=== PATIENT | male | born 1965 | race African-American/Black ===

== ENCOUNTER 2021-09-26 18:52 | Emergency (ER) | payer MEDICAID, OTHER ==
[~2021-09-26] VITALS: Ht 167.6 cm; Wt 90.7 kg
[2021-09-26] MEDS ORDERED: KETOROLAC TROMETH 30 MG/ML 1ML VIAL IM ONE (20:15)
[2021-09-26] MEDS ORDERED: VANCOMYCIN 1GM/250ML 250 ML IV ONE (21:30)
[2021-09-26] MEDS ORDERED: PIPERACILLIN-TAZO 4.5GM 100 ML IV ONE (21:30)
[2021-09-26 23:49] LABS: Basophils # (auto) 0.1 10 ^3/uL (0-0.2); Basophils % (auto) 1.5 % (0.0-2.0); Eosinophils # (auto) 0.1 10 ^3/uL (0-0.8); Eosinophils % (auto) 0.9 % (0.0-7.0); Hematocrit 40.3 % (41.0-53.0); Hemoglobin 13.5 g/dL (13.5-17.5); Lymphocytes # (auto) 1.6 10 ^3/uL (0.4-5.4); Lymphocytes % (auto) 28.6 % (10.0-50.0); Mean Corpuscular Hemoglobin 31.3 pg (28.0-32.0); Mean Corpuscular Hgb Conc. 33.5 g/dL (32.0-36.0); Mean Corpuscular Volume 93.5 fL (80.0-100.0); Monocytes # (auto) 0.5 10 ^3/uL (0-1.3); Monocytes % (auto) 9.8 % (0.0-12.0); Neutrophils # (auto) 3.3 10 ^3/uL (1.6-8.6); Neutrophils % (auto) 59.2 % (37.0-80.0); Red Blood Cells 4.31 10^6/uL (4.5-5.90); Red Cell Distribution Width 13.3 % (11.8-14.3); White Blood Cell 5.6 10^3/uL (4.4-10.8)
[2021-09-27 00:06] LABS: Albumin 1.8 g/dL (3.4-5.0); Potassium 3.9 mmol/L (3.5-5.1)
[2021-09-27 00:17] LABS: BUN/Creatinine Ratio 10.2; Bilirubin, Total 0.2 mg/dL (0.2-1.0); Total Protein 6.5 g/dL (6.4-8.2)
[2021-09-27] MEDS ORDERED: CEFD300C2 PO (06:25)
[2021-09-27 08:48] VITALS: BP 148/92
== END 2021-09-27 08:50 | disposition home or self-care (01) ==
LOC: ER 18:52 → EDBD 18:52 → ER 09-27 08:50
DX: E11.621 Type 2 diabetes mellitus with foot ulcer (principal); L97.519 Non-pressure chronic ulcer of other part of right foot with unspecified severity; E11.52 Type 2 diabetes mellitus with diabetic peripheral angiopathy with gangrene; I96 Gangrene, not elsewhere classified; R94.4 Abnormal results of kidney function studies
CPT/HCPCS: 36415; 73610; 73630; 80053; 82550; 83605; 85025; 85652; 86141; 87040; 96365; 96366; 96367; 96372; 99284; J1885; J2543; J3370

== ENCOUNTER 2021-09-27 19:09 | Inpatient (IN) | payer MEDICAID ==
[~2021-09-27] VITALS: Ht 167.6 cm; Wt 87.6 kg
[~2021-09-27 19:09] MED LIST: CEFD300C2 PO
[2021-09-27] MEDS ORDERED: VANCOMYCIN 1GM/250ML 250 ML IV ONE (19:45)
[2021-09-27] MEDS ORDERED: PIPERACILLIN-TAZOB 3.375GM 100 ML IV ONE (19:45)
[2021-09-27] MEDS ORDERED: ONDANSETRON HCL 4 MG/2 ML VIAL IV ONE (20:00)
[2021-09-27] MEDS ORDERED: LABETALOL HCL 5 MG/ML 4ML SYRINGE IV ONE (20:00)
[2021-09-27] MEDS ORDERED: HYDROmorphone HCL 2 MG/ML VL IV ONE (20:00)
[2021-09-27 21:11] LABS: Basophils # (auto) 0.1 10 ^3/uL (0-0.2); Eosinophils # (auto) 0.1 10 ^3/uL (0-0.8); Hemoglobin 12.2 g/dL (13.5-17.5); Lymphocytes # (auto) 1.8 10 ^3/uL (0.4-5.4); Mean Corpuscular Hemoglobin 30.9 pg (28.0-32.0); Mean Corpuscular Hgb Conc. 33.4 g/dL (32.0-36.0); Mean Corpuscular Volume 92.3 fL (80.0-100.0); Neutrophils % (auto) 62.5 % (37.0-80.0)
[2021-09-27 21:18] LABS: Basophils % (auto) 0.9 % (0.0-2.0); Hematocrit 36.5 % (41.0-53.0); INR 0.99 (0.9-1.15); Lymphocytes % (auto) 27.1 % (10.0-50.0); Monocytes # (auto) 0.6 10 ^3/uL (0-1.3); Monocytes % (auto) 8.5 % (0.0-12.0); Neutrophils # (auto) 4.2 10 ^3/uL (1.6-8.6); Nucleated Red Blood Cells % 0.2 %; Partial Thromboplastin Time 27.9 sec (23.6-33.0); Red Blood Cells 3.95 10^6/uL (4.5-5.90); Red Cell Distribution Width 13.6 % (11.8-14.3); White Blood Cell 6.8 10^3/uL (4.4-10.8)
[2021-09-28] MEDS ORDERED: DEXTROSE (50%) 50ML SYRG IV PRN (00:15)
[2021-09-28] MEDS ORDERED: ONDANSETRON HCL 4 MG/2 ML VIAL IV PRN (00:15)
[2021-09-28] MEDS ORDERED: SODIUM CHLORIDE 0.9% 1,000 ML IV SCH (00:15)
[2021-09-28] MEDS ORDERED: HYDROcodone-ACET 5/325MG TAB PO PRN (00:15)
[2021-09-28] MEDS ORDERED: ACETAMINOPHEN 325 MG TAB PO PRN (00:15)
[2021-09-28] MEDS ORDERED: DOCUSATE SOD 100 MG CAP PO PRN (00:15)
[2021-09-28] MEDS ORDERED: NITROGLYCERIN 0.4 MG SL TAB SL PRN (01:45)
[2021-09-28] MEDS ORDERED: MORPHINE SULFATE INJECTION 2 MG/ML SYRG IV PRN (01:45)
[2021-09-28] MEDS ORDERED: DexAMETHasone SOD PHOS 10MG/1ML VIAL INJ IV SCH (04:30)
[2021-09-28 04:59] LABS: Basophils # (auto) 0.1 10 ^3/uL (0-0.2); Basophils % (auto) 1.4 % (0.0-2.0); Eosinophils # (auto) 0.1 10 ^3/uL (0-0.8); Eosinophils % (auto) 1.3 % (0.0-7.0); Hematocrit 40.4 % (41.0-53.0); Hemoglobin 13.5 g/dL (13.5-17.5); Lymphocytes # (auto) 1.8 10 ^3/uL (0.4-5.4); Lymphocytes % (auto) 34.4 % (10.0-50.0); Mean Corpuscular Hemoglobin 31.1 pg (28.0-32.0); Mean Corpuscular Hgb Conc. 33.4 g/dL (32.0-36.0); Monocytes # (auto) 0.5 10 ^3/uL (0-1.3); Monocytes % (auto) 8.8 % (0.0-12.0); Neutrophils # (auto) 2.8 10 ^3/uL (1.6-8.6); Neutrophils % (auto) 54.1 % (37.0-80.0); Nucleated Red Blood Cells % 0.1 %; Red Blood Cells 4.35 10^6/uL (4.5-5.90); Red Cell Distribution Width 13.5 % (11.8-14.3); White Blood Cell 5.2 10^3/uL (4.4-10.8)
[2021-09-28 05:11] LABS: Albumin 1.5 g/dL (3.4-5.0); Calcium 7.2 mg/dL (8.5-10.1); Potassium 4.1 mmol/L (3.5-5.1)
[2021-09-28 05:17] LABS: BUN/Creatinine Ratio 9.9; Bilirubin, Total 0.1 mg/dL (0.2-1.0)
[2021-09-28] MEDS: ACCU-CHEK COMFORT CURVE STRIP VI SCH ×4 (07:50→22:16)
[2021-09-28] MEDS: InsuLIN REG 1unit/0.01ml Soln (100units/ml) SC SCH ×4 (07:50→22:00)
[2021-09-28] MEDS: LABETALOL HCL 5 MG/ML 4ML SYRINGE IV PRN (08:41)
[2021-09-28] MEDS: MORPHINE SULFATE 4 MG/ML SYR/VIAL IV PRN ×3 (08:46→22:24)
[2021-09-28] MEDS ORDERED: PIPERACILLIN-TAZOB 3.375GM 100 ML IV SCH (09:00)
[2021-09-28] MEDS ORDERED: BUDESONIDE (INHALATION) 180 MCG IH IN SCH (10:00)
[2021-09-28] MEDS: ZINC SULFATE 220mg CAP or TAB PO SCH (10:30)
[2021-09-28] MEDS: FAMOTIDINE (10MG/ML) 2ML VL IV SCH (10:30)
[2021-09-28] MEDS: CHOLECALCIFEROL (VITD3) 2,000 UNIT CAP/TAB PO SCH (10:31)
[2021-09-28] MEDS: HEPARIN SODIUM (PORCINE) 5000 UNITS/ML 1ML VIAL SC SCH ×2 (10:31→22:13)
[2021-09-28] MEDS: MULTIPLE VITAMIN TAB PO SCH (10:31)
[2021-09-28] MEDS: ASCORBIC ACID 500 MG TAB PO SCH ×2 (10:31→22:15)
[2021-09-28] MEDS: METOPROLOL TARTRATE 25 MG TAB PO SCH ×2 (10:31→22:15)
[2021-09-28] MEDS ORDERED: NIFEdipine ER 30 MG TAB PO ONE (10:45)
[2021-09-28 11:06] LABS: Urine Bacteria FEW /hpf (None Seen); Urine Blood 2+ /uL (Negative); Urine Specific Gravity 1.018 (1.001-1.035); Urine WBC 5 /hpf (0 - 3)
[2021-09-28 12:09] LABS: Protein, Urine 1433.8 mg/dL (0.0-11.9)
[2021-09-28 12:19] LABS: Alcohol, Urine < 3.0 mg/dL (0-10); Barbiturate Scree,Urine NEGATIVE (NEGATIVE); Benzodiazephine Screen, Urine NEGATIVE (NEGATIVE); Cannabinoid Screen, Urine POSITIVE (NEGATIVE); Cocaine Screen, Urine NEGATIVE (NEGATIVE); Opiate Scree,Urine NEGATIVE (NEGATIVE); Phencyclidine Screen, Urine NEGATIVE (NEGATIVE)
[2021-09-28 12:27] LABS: Amphetamine Screen, Urine NEGATIVE (NEGATIVE)
[2021-09-28] MEDS: CLINDAMYCIN 600MG IV 50 ML IV SCH ×2 (12:53→20:07)
[2021-09-28] MEDS: AZITHROMYCIN 500MG/ 250ML 250 ML IV SCH (12:53)
[2021-09-28] MEDS: CEFEPIME 1 GM in SODIUM CHL 0.9% 50 ML IV SCH (14:40)
[2021-09-28 20:20] VITALS: BP 153/93
[2021-09-28 22:00] VITALS: BP 153/93
[2021-09-29] MEDS: CLINDAMYCIN 600MG IV 50 ML IV SCH ×3 (03:58→20:23)
[2021-09-29 05:00] VITALS: BP 153/88
[2021-09-29 05:58] LABS: Basophils # (auto) 0 10 ^3/uL (0-0.2); Basophils % (auto) 0.7 % (0.0-2.0); Eosinophils # (auto) 0 10 ^3/uL (0-0.8); Eosinophils % (auto) 0.2 % (0.0-7.0); Hematocrit 36.8 % (41.0-53.0); Hemoglobin 12.1 g/dL (13.5-17.5); Lymphocytes # (auto) 1.5 10 ^3/uL (0.4-5.4); Lymphocytes % (auto) 26.3 % (10.0-50.0); Mean Corpuscular Hemoglobin 30.5 pg (28.0-32.0); Mean Corpuscular Hgb Conc. 32.9 g/dL (32.0-36.0); Mean Corpuscular Volume 92.7 fL (80.0-100.0); Monocytes # (auto) 0.6 10 ^3/uL (0-1.3); Monocytes % (auto) 9.5 % (0.0-12.0); Neutrophils # (auto) 3.7 10 ^3/uL (1.6-8.6); Neutrophils % (auto) 63.3 % (37.0-80.0); Red Blood Cells 3.97 10^6/uL (4.5-5.90); Red Cell Distribution Width 13.8 % (11.8-14.3); White Blood Cell 5.8 10^3/uL (4.4-10.8)
[2021-09-29 06:20] LABS: Potassium 4.1 mmol/L (3.5-5.1)
[2021-09-29 06:29] LABS: Albumin 1.6 g/dL (3.4-5.0); BUN/Creatinine Ratio 10.8; Bilirubin, Total 0.2 mg/dL (0.2-1.0); Calcium 7.4 mg/dL (8.5-10.1)
[2021-09-29] MEDS: ACCU-CHEK COMFORT CURVE STRIP VI SCH ×4 (06:44→21:48)
[2021-09-29] MEDS: InsuLIN REG 1unit/0.01ml Soln (100units/ml) SC SCH ×4 (06:44→22:00)
[2021-09-29] MEDS: ALBUTEROL SULF HFA 90MCG INH 200DOSE IN PRN ×2 (07:06→19:21)
[2021-09-29 09:00] VITALS: BP 160/95
[2021-09-29] MEDS: MORPHINE SULFATE 4 MG/ML SYR/VIAL IV PRN ×2 (09:10→16:19)
[2021-09-29] MEDS: FAMOTIDINE (10MG/ML) 2ML VL IV SCH (09:33)
[2021-09-29] MEDS: ZINC SULFATE 220mg CAP or TAB PO SCH (09:34)
[2021-09-29] MEDS: AZITHROMYCIN 500MG/ 250ML 250 ML IV SCH (09:34)
[2021-09-29] MEDS: CHOLECALCIFEROL (VITD3) 2,000 UNIT CAP/TAB PO SCH (09:35)
[2021-09-29] MEDS: MULTIPLE VITAMIN TAB PO SCH (09:35)
[2021-09-29] MEDS: ASCORBIC ACID 500 MG TAB PO SCH ×2 (09:35→21:47)
[2021-09-29] MEDS: HEPARIN SODIUM (PORCINE) 5000 UNITS/ML 1ML VIAL SC SCH ×2 (09:36→21:50)
[2021-09-29] MEDS: METOPROLOL TARTRATE 25 MG TAB PO SCH ×2 (09:37→21:47)
[2021-09-29] MEDS: NIFEdipine ER 30 MG TAB PO SCH (09:38)
[2021-09-29 17:00] VITALS: BP 153/92
[2021-09-29] MEDS: CEFEPIME 1 GM in SODIUM CHL 0.9% 50 ML IV SCH (18:54)
[2021-09-29] MEDS: SODIUM BICARBONATE 50ML VIAL 75 ML in SOD CHL 0.45% 1,000 ML IV SCH (18:54)
[2021-09-29] MEDS: ACETYLCYSTEINE ORAL for CIN 20%(200MG/ML) 4ML PO SCH ×2 (18:55→22:59)
[2021-09-29 22:00] VITALS: BP 154/79
[2021-09-30] MEDS: SODIUM BICARBONATE 50ML VIAL 75 ML in SOD CHL 0.45% 1,000 ML IV SCH ×3 (00:45→23:09)
[2021-09-30] MEDS: CLINDAMYCIN 600MG IV 50 ML IV SCH ×3 (04:27→20:32)
[2021-09-30 05:00] VITALS: BP 142/79
[2021-09-30] MEDS: ALBUTEROL SULF HFA 90MCG INH 200DOSE IN PRN (06:03)
[2021-09-30] MEDS: InsuLIN REG 1unit/0.01ml Soln (100units/ml) SC SCH ×4 (07:00→21:57)
[2021-09-30] MEDS: ACCU-CHEK COMFORT CURVE STRIP VI SCH ×4 (07:01→21:54)
[2021-09-30 08:02] LABS: BUN/Creatinine Ratio 9.9
[2021-09-30 09:00] VITALS: BP 160/102
[2021-09-30] MEDS: FAMOTIDINE (10MG/ML) 2ML VL IV SCH (09:46)
[2021-09-30] MEDS: AZITHROMYCIN 500MG/ 250ML 250 ML IV SCH (09:46)
[2021-09-30] MEDS: ZINC SULFATE 220mg CAP or TAB PO SCH (09:47)
[2021-09-30] MEDS: METOPROLOL TARTRATE 25 MG TAB PO SCH ×2 (09:47→21:55)
[2021-09-30] MEDS: MULTIPLE VITAMIN TAB PO SCH (09:48)
[2021-09-30] MEDS: ACETYLCYSTEINE ORAL for CIN 20%(200MG/ML) 4ML PO SCH (09:48)
[2021-09-30] MEDS: ASCORBIC ACID 500 MG TAB PO SCH ×2 (09:49→21:53)
[2021-09-30] MEDS: NIFEdipine ER 30 MG TAB PO SCH (09:49)
[2021-09-30] MEDS: CHOLECALCIFEROL (VITD3) 2,000 UNIT CAP/TAB PO SCH (09:49)
[2021-09-30] MEDS: MORPHINE SULFATE 4 MG/ML SYR/VIAL IV PRN ×2 (09:55→21:56)
[2021-09-30] MEDS: HEPARIN SODIUM (PORCINE) 5000 UNITS/ML 1ML VIAL SC SCH ×2 (11:48→21:53)
[2021-09-30] MEDS: LABETALOL HCL 5 MG/ML 4ML SYRINGE IV PRN ×2 (12:15→18:20)
[2021-09-30 12:24] LABS: INR 1.04 (0.9-1.15); Partial Thromboplastin Time 34.7 sec (23.6-33.0)
[2021-09-30 13:00] VITALS: BP 162/103
[2021-09-30] MEDS ORDERED: NIFEdipine ER 30 MG TAB PO ONE (14:45)
[2021-09-30] MEDS ORDERED: LABETALOL HCL 5 MG/ML 4ML SYRINGE IV PRN (14:45)
[2021-09-30] MEDS ORDERED: LIDOCAINE 2%HCL (LOCAL ANESTH.) INJ 20ML MDV ONE (15:07)
[2021-09-30] MEDS ORDERED: fentaNYL CITRATE 100 MCG/2 ML VL ONE (15:38)
[2021-09-30] MEDS ORDERED: MIDAZOLAM HCL 2MG/2ML 2ml VIAL (1mg/ml) ONE (15:38)
[2021-09-30] MEDS ORDERED: HEPARIN SODIUM (PORCINE) 5000 UNITS/ML 1ML VIAL ONE (15:57)
[2021-09-30 17:00] VITALS: BP 170/106
[2021-09-30] MEDS: CEFEPIME 1 GM in SODIUM CHL 0.9% 50 ML IV SCH (17:14)
[2021-09-30] MEDS: ACETYLCYSTEINE 10 %(100MG/ML) SOL 4ML PO SCH (21:54)
[2021-09-30 22:00] VITALS: BP 131/98
[2021-10-01] MEDS: CLINDAMYCIN 600MG IV 50 ML IV SCH ×3 (04:16→20:33)
[2021-10-01 05:00] VITALS: BP 140/86
[2021-10-01] MEDS: InsuLIN REG 1unit/0.01ml Soln (100units/ml) SC SCH ×4 (06:34→22:27)
[2021-10-01] MEDS: ACCU-CHEK COMFORT CURVE STRIP VI SCH ×4 (06:34→22:21)
[2021-10-01] MEDS: SODIUM BICARBONATE 50ML VIAL 75 ML in SOD CHL 0.45% 1,000 ML IV SCH ×2 (09:00→19:45)
[2021-10-01] MEDS: HEPARIN SODIUM (PORCINE) 5000 UNITS/ML 1ML VIAL SC SCH ×2 (10:00→22:26)
[2021-10-01 10:30] VITALS: BP 155/87
[2021-10-01] MEDS: AZITHROMYCIN 500MG/ 250ML 250 ML IV SCH (10:48)
[2021-10-01] MEDS: FAMOTIDINE (10MG/ML) 2ML VL IV SCH (10:48)
[2021-10-01] MEDS: ZINC SULFATE 220mg CAP or TAB PO SCH (10:48)
[2021-10-01] MEDS: MULTIPLE VITAMIN TAB PO SCH (10:49)
[2021-10-01] MEDS: ACETYLCYSTEINE 10 %(100MG/ML) SOL 4ML PO SCH (10:49)
[2021-10-01] MEDS: METOPROLOL TARTRATE 25 MG TAB PO SCH ×2 (10:49→22:21)
[2021-10-01] MEDS: ASCORBIC ACID 500 MG TAB PO SCH ×2 (10:50→22:21)
[2021-10-01] MEDS: NIFEdipine ER 30 MG TAB PO SCH (10:50)
[2021-10-01] MEDS: CHOLECALCIFEROL (VITD3) 2,000 UNIT CAP/TAB PO SCH (10:50)
[2021-10-01] MEDS: ALBUTEROL SULF HFA 90MCG INH 200DOSE IN PRN (11:11)
[2021-10-01 12:43] LABS: BUN/Creatinine Ratio 10.2; Calcium 7.4 mg/dL (8.5-10.1); Potassium 3.9 mmol/L (3.5-5.1)
[2021-10-01 14:17] VITALS: BP 181/100
[2021-10-01] MEDS: LABETALOL HCL 5 MG/ML 4ML SYRINGE IV PRN (14:36)
[2021-10-01] MEDS ORDERED: LIDOCAINE 2%HCL (LOCAL ANESTH.) INJ 20ML MDV ONE (14:42)
[2021-10-01] MEDS ORDERED: fentaNYL CITRATE 100 MCG/2 ML VL ONE (14:44)
[2021-10-01] MEDS ORDERED: MIDAZOLAM HCL 2MG/2ML 2ml VIAL (1mg/ml) ONE (14:44)
[2021-10-01] MEDS ORDERED: ANGIOMAX 250 MG VIAL IV ONE (14:44)
[2021-10-01] MEDS ORDERED: SODIUM CHL 0.9% 0 ML ONE (14:44)
[2021-10-01] MEDS ORDERED: IOHEXOL 350 MG/ML 100ML IJ ONE (15:30)
[2021-10-01] MEDS: CEFEPIME 1 GM in SODIUM CHL 0.9% 50 ML IV SCH (17:00)
[2021-10-01] MEDS: MORPHINE SULFATE 4 MG/ML SYR/VIAL IV PRN (17:01)
[2021-10-01 17:08] VITALS: BP 168/90
[2021-10-01] MEDS: FUROSEMIDE 100 MG/10ML VIAL IV SCH (18:09)
[2021-10-01] MEDS: amLODIPine BESYLATE 5 MG TAB PO SCH (18:09)
[2021-10-01 22:00] VITALS: BP 139/76
[2021-10-02 05:00] VITALS: BP 149/85
[2021-10-02] MEDS: CLINDAMYCIN 600MG IV 50 ML IV SCH ×2 (05:13→12:04)
[2021-10-02] MEDS: FUROSEMIDE 100 MG/10ML VIAL IV SCH ×2 (06:00→18:00)
[2021-10-02] MEDS: SODIUM BICARBONATE 50ML VIAL 75 ML in SOD CHL 0.45% 1,000 ML IV SCH ×2 (06:30→17:15)
[2021-10-02] MEDS: InsuLIN REG 1unit/0.01ml Soln (100units/ml) SC SCH ×3 (07:00→17:00)
[2021-10-02 07:09] LABS: Basophils # (auto) 0.1 10 ^3/uL (0-0.2); Basophils % (auto) 0.9 % (0.0-2.0); Eosinophils # (auto) 0.1 10 ^3/uL (0-0.8); Eosinophils % (auto) 0.8 % (0.0-7.0); Hematocrit 36.7 % (41.0-53.0); Hemoglobin 12.4 g/dL (13.5-17.5); Lymphocytes # (auto) 1.3 10 ^3/uL (0.4-5.4); Lymphocytes % (auto) 18.8 % (10.0-50.0); Mean Corpuscular Hemoglobin 30.9 pg (28.0-32.0); Mean Corpuscular Hgb Conc. 33.9 g/dL (32.0-36.0); Mean Corpuscular Volume 91.2 fL (80.0-100.0); Monocytes # (auto) 0.5 10 ^3/uL (0-1.3); Monocytes % (auto) 7.4 % (0.0-12.0); Neutrophils % (auto) 72.1 % (37.0-80.0); Nucleated Red Blood Cells % 0.1 %; Red Blood Cells 4.03 10^6/uL (4.5-5.90); Red Cell Distribution Width 13.4 % (11.8-14.3); White Blood Cell 6.9 10^3/uL (4.4-10.8)
[2021-10-02 07:30] LABS: Albumin 1.6 g/dL (3.4-5.0); Calcium 7.6 mg/dL (8.5-10.1); Potassium 3.5 mmol/L (3.5-5.1)
[2021-10-02 07:33] LABS: BUN/Creatinine Ratio 9.1; Bilirubin, Total 0.2 mg/dL (0.2-1.0); Total Protein 6.2 g/dL (6.4-8.2)
[2021-10-02 09:00] VITALS: BP 144/85
[2021-10-02] MEDS: ALBUTEROL SULF HFA 90MCG INH 200DOSE IN PRN (09:29)
[2021-10-02] MEDS: ACCU-CHEK COMFORT CURVE STRIP VI SCH ×3 (09:39→17:00)
[2021-10-02] MEDS: AZITHROMYCIN 500MG/ 250ML 250 ML IV SCH (10:00)
[2021-10-02] MEDS: ZINC SULFATE 220mg CAP or TAB PO SCH (11:17)
[2021-10-02] MEDS: FAMOTIDINE (10MG/ML) 2ML VL IV SCH (11:17)
[2021-10-02] MEDS: MULTIPLE VITAMIN TAB PO SCH (11:17)
[2021-10-02] MEDS: METOPROLOL TARTRATE 25 MG TAB PO SCH (11:17)
[2021-10-02] MEDS: ASCORBIC ACID 500 MG TAB PO SCH (11:18)
[2021-10-02] MEDS: CHOLECALCIFEROL (VITD3) 2,000 UNIT CAP/TAB PO SCH (11:18)
[2021-10-02] MEDS: amLODIPine BESYLATE 5 MG TAB PO SCH (11:18)
[2021-10-02] MEDS: NIFEdipine ER 30 MG TAB PO SCH (11:18)
[2021-10-02] MEDS: HEPARIN SODIUM (PORCINE) 5000 UNITS/ML 1ML VIAL SC SCH (11:22)
[2021-10-02 13:00] VITALS: BP 164/60
[2021-10-02] MEDS: CEFEPIME 1 GM in SODIUM CHL 0.9% 50 ML IV SCH (14:10)
[2021-10-02 14:11] LABS: Hepatitis A Ab IgM Negative; Hepatitis B Core IgM Negative; Hepatitis C Antibody Negative (Negative)
[2021-10-02] MEDS ORDERED: NIFE90TA49 PO (14:28)
[2021-10-02] MEDS ORDERED: CHOL1CAP47 PO (14:28)
[2021-10-02] MEDS ORDERED: MET50T PO (14:28)
[2021-10-02] MEDS ORDERED: ASCO500T11 PO (14:28)
[2021-10-02] MEDS ORDERED: AMLO-496 PO (14:28)
[2021-10-02] MEDS ORDERED: ATOR10TA52 PO (14:29)
[2021-10-02] MEDS ORDERED: ASPI1TAB20 PO (14:29)
[2021-10-02] MEDS ORDERED: CLOP75TA70 PO (14:38)
[2021-10-02] MEDS ORDERED: PANT40TA2 PO (14:39)
[2021-10-02] MEDS ORDERED: MORPHINE SULFATE INJECTION 2 MG/ML SYRG IV PRN (14:45)
[2021-10-02] MEDS ORDERED: ASPirin 81 mg TAB PO ONE (14:45)
[2021-10-02] MEDS ORDERED: CLOPIDOGREL BISULFATE 75 MG TAB PO ONE (14:45)
[2021-10-02 14:55] VITALS: BP 145/80
[2021-10-02 17:00] VITALS: BP 152/73
== END 2021-10-02 18:12 | disposition home health service (06) | DRG 197 ==
LOC: ER 19:11 → OVERFLOW 09-28 01:40 → EAST 09-28 20:20
PROVIDERS: ADMIT Nurse Practitioner Family; ATTEND Internal Medicine
PROC: 0JH63XZ Insertion of Tunneled Vascular Access Device into Chest Subcutaneous Tissue and Fascia, Percutaneous Approach (ICD-10-PCS; 2021-09-30)
PROC: 02HV33Z Insertion of Infusion Device into Superior Vena Cava, Percutaneous Approach (ICD-10-PCS; 2021-09-30)
PROC: B5181ZA Fluoroscopy of Superior Vena Cava using Low Osmolar Contrast, Guidance (ICD-10-PCS; 2021-09-30)
PROC: B548ZZA Ultrasonography of Superior Vena Cava, Guidance (ICD-10-PCS; 2021-09-30)
PROC: B41G1ZZ Fluoroscopy of Left Lower Extremity Arteries using Low Osmolar Contrast (ICD-10-PCS; principal; 2021-10-01)
PROC: B41F1ZZ Fluoroscopy of Right Lower Extremity Arteries using Low Osmolar Contrast (ICD-10-PCS; 2021-10-01)
DX: I70.261 Atherosclerosis of native arteries of extremities with gangrene, right leg (principal); N17.0 Acute kidney failure with tubular necrosis; U07.1 COVID-19; I21.A1 Myocardial infarction type 2; D69.6 Thrombocytopenia, unspecified; E11.52 Type 2 diabetes mellitus with diabetic peripheral angiopathy with gangrene; I12.0 Hypertensive chronic kidney disease with stage 5 chronic kidney disease or end stage renal disease; E88.09 Other disorders of plasma-protein metabolism, not elsewhere classified; E11.21 Type 2 diabetes mellitus with diabetic nephropathy; N18.5 Chronic kidney disease, stage 5; E11.42 Type 2 diabetes mellitus with diabetic polyneuropathy; E11.621 Type 2 diabetes mellitus with foot ulcer; I16.1 Hypertensive emergency; E11.69 Type 2 diabetes mellitus with other specified complication; E11.22 Type 2 diabetes mellitus with diabetic chronic kidney disease; F12.90 Cannabis use, unspecified, uncomplicated; F17.210 Nicotine dependence, cigarettes, uncomplicated; L08.9 Local infection of the skin and subcutaneous tissue, unspecified; L97.519 Non-pressure chronic ulcer of other part of right foot with unspecified severity
CPT/HCPCS: 36415; 36558; 71045; 75716; 76775; 76942; 77001; 80048; 80053; 80074; 80307; 81001; 82570; 82728; 82962; 83036; 83615; 83735; 84156; 84300; 84484; 85025; 85610; 85652; 85730; 86141; 87040; 87426; 93005; 93306; 93925; 94640; 96365; 96366; 96367; 96375; 96376; 99152; 99153; G0378; J1100; J1815; J2250; J2405; J2543; J3490

== ENCOUNTER 2021-10-13 22:26 | Emergency (ER) | payer MEDICAID ==
[~2021-10-13] VITALS: Ht 167.6 cm; Wt 90.7 kg
[~2021-10-13 22:26] MED LIST changes: +AMLO-496 PO; +ASCO500T11 PO; +ASPI1TAB20 PO; +ATOR10TA52 PO; -CEFD300C2 PO; +CHOL1CAP47 PO; +CLOP75TA70 PO; +MET50T PO; +NIFE90TA49 PO; +PANT40TA2 PO
[2021-10-14 02:56] LABS: Urine Bacteria NONE SEEN /hpf (None Seen); Urine Blood 1+ /uL (Negative); Urine Specific Gravity 1.014 (1.001-1.035); Urine WBC 1 /hpf (0 - 3)
[2021-10-14] MEDS ORDERED: AZITHROMYCIN 250 MG TAB PO ONE ×3 (03:00→04:43)
[2021-10-14] MEDS ORDERED: cefTRIAXone SOD 500 MG VL IM ONE (03:00)
[2021-10-14] MEDS ORDERED: DOXY-332 PO (03:12)
[2021-10-14 05:28] VITALS: BP 163/88
== END 2021-10-14 06:26 | disposition home or self-care (01) ==
LOC: ER 22:28
DX: N45.1 Epididymitis (principal); F17.210 Nicotine dependence, cigarettes, uncomplicated; I12.9 Hypertensive chronic kidney disease with stage 1 through stage 4 chronic kidney disease, or unspecified chronic kidney disease; E11.22 Type 2 diabetes mellitus with diabetic chronic kidney disease; N18.9 Chronic kidney disease, unspecified; Z79.899 Other long term (current) drug therapy
CPT/HCPCS: 76870; 81001; 87491; 87591; 96372; 99284; J0696

== ENCOUNTER 2021-12-17 01:12 | Inpatient (IN) | payer MEDICAID ==
[~2021-12-17] VITALS: Ht 172.7 cm; Wt 82.0 kg
[2021-12-17 02:21] LABS: Albumin 1.9 g/dL (3.4-5.0); BUN/Creatinine Ratio 11.1; Calcium 8.7 mg/dL (8.5-10.1); Potassium 4.3 mmol/L (3.5-5.1)
[2021-12-17 02:24] LABS: Bilirubin, Total 0.1 mg/dL (0.2-1.0); Total Protein 7.7 g/dL (6.4-8.2)
[2021-12-17 02:25] LABS: Basophils # (auto) 0.2 10 ^3/uL (0-0.2); Basophils % (auto) 1.4 % (0.0-2.0); Eosinophils # (auto) 0.2 10 ^3/uL (0-0.8); Eosinophils % (auto) 2.1 % (0.0-7.0); Hematocrit 29.4 % (41.0-53.0); Hemoglobin 9.8 g/dL (13.5-17.5); Lymphocytes # (auto) 2.8 10 ^3/uL (0.4-5.4); Lymphocytes % (auto) 26.1 % (10.0-50.0); Mean Corpuscular Hemoglobin 29.6 pg (28.0-32.0); Mean Corpuscular Hgb Conc. 33.3 g/dL (32.0-36.0); Monocytes # (auto) 0.8 10 ^3/uL (0-1.3); Monocytes % (auto) 7.3 % (0.0-12.0); Neutrophils # (auto) 6.7 10 ^3/uL (1.6-8.6); Neutrophils % (auto) 63.1 % (37.0-80.0); Red Cell Distribution Width 13.9 % (11.8-14.3); White Blood Cell 10.6 10^3/uL (4.4-10.8)
[2021-12-17] MEDS ORDERED: ONDANSETRON HCL 4 MG/2 ML VIAL IV ONE (04:00)
[2021-12-17] MEDS ORDERED: MORPHINE SULFATE 4 MG/ML SYR/VIAL IV ONE (04:00)
[2021-12-17] MEDS ORDERED: cloNIDine HCL 0.1 MG TAB PO PRN (04:45)
[2021-12-17] MEDS ORDERED: ACETAMINOPHEN 325 MG TAB PO PRN (04:45)
[2021-12-17] MEDS ORDERED: DEXTROSE (50%) 50ML SYRG IV PRN (04:45)
[2021-12-17] MEDS ORDERED: ONDANSETRON HCL 4 MG/2 ML VIAL IV PRN (04:45)
[2021-12-17] MEDS: HYDROcodone-ACET 5/325MG TAB PO PRN ×2 (05:20→20:37)
[2021-12-17] MEDS: CLINDAMYCIN 600MG IV 50 ML IV SCH ×3 (05:20→21:54)
[2021-12-17] MEDS: HYDROmorphone HCL 2 MG/ML VL IV PRN ×2 (06:15→16:40)
[2021-12-17] MEDS: ACCU-CHEK COMFORT CURVE STRIP VI SCH ×4 (07:00→21:55)
[2021-12-17] MEDS: InsuLIN REG 1unit/0.01ml Soln (100units/ml) SC SCH ×4 (07:00→21:26)
[2021-12-17 09:00] VITALS: BP 151/86
[2021-12-17] MEDS ORDERED: CLOPIDOGREL BISULFATE 75 MG TAB PO SCH (10:00)
[2021-12-17] MEDS: amLODIPine BESYLATE 5 MG TAB PO SCH (12:19)
[2021-12-17] MEDS: METOPROLOL TARTRATE 50 MG TAB PO SCH ×2 (12:19→21:55)
[2021-12-17] MEDS: NIFEdipine ER 30 MG TAB PO SCH (12:20)
[2021-12-17] MEDS: PANTOPRAZOLE 40 MG TAB PO SCH (12:20)
[2021-12-17 13:00] VITALS: BP 169/85
[2021-12-17 17:00] VITALS: BP 150/91
[2021-12-17 20:00] VITALS: BP 123/70
[2021-12-17] MEDS: ATORVASTATIN 20 MG TAB PO SCH (21:54)
[2021-12-17 22:00] VITALS: BP 123/72
[2021-12-18 05:00] VITALS: BP 152/78
[2021-12-18] MEDS: CLINDAMYCIN 600MG IV 50 ML IV SCH ×3 (05:19→22:08)
[2021-12-18] MEDS: HYDROcodone-ACET 5/325MG TAB PO PRN ×3 (05:19→22:14)
[2021-12-18] MEDS: ACCU-CHEK COMFORT CURVE STRIP VI SCH ×4 (06:33→22:14)
[2021-12-18] MEDS: InsuLIN REG 1unit/0.01ml Soln (100units/ml) SC SCH ×4 (06:33→22:13)
[2021-12-18 06:45] LABS: Basophils # (auto) 0.2 10 ^3/uL (0-0.2); Basophils % (auto) 1.8 % (0.0-2.0); Eosinophils # (auto) 0.1 10 ^3/uL (0-0.8); Eosinophils % (auto) 1.4 % (0.0-7.0); Hematocrit 27.5 % (41.0-53.0); Hemoglobin 9.3 g/dL (13.5-17.5); Lymphocytes # (auto) 1.6 10 ^3/uL (0.4-5.4); Mean Corpuscular Hemoglobin 30.3 pg (28.0-32.0); Mean Corpuscular Hgb Conc. 33.9 g/dL (32.0-36.0); Mean Corpuscular Volume 89.4 fL (80.0-100.0); Monocytes # (auto) 0.6 10 ^3/uL (0-1.3); Monocytes % (auto) 6.6 % (0.0-12.0); Neutrophils # (auto) 7.2 10 ^3/uL (1.6-8.6); Neutrophils % (auto) 74.2 % (37.0-80.0); Nucleated Red Blood Cells % 0.1 %; Red Blood Cells 3.08 10^6/uL (4.5-5.90); Red Cell Distribution Width 13.8 % (11.8-14.3); White Blood Cell 9.8 10^3/uL (4.4-10.8)
[2021-12-18 07:00] LABS: Potassium 4.3 mmol/L (3.5-5.1)
[2021-12-18 07:10] LABS: Albumin 1.7 g/dL (3.4-5.0); BUN/Creatinine Ratio 11.8; Calcium 8.6 mg/dL (8.5-10.1)
[2021-12-18 07:13] LABS: Bilirubin, Total 0.2 mg/dL (0.2-1.0); Total Protein 6.7 g/dL (6.4-8.2)
[2021-12-18 09:00] VITALS: BP 136/87
[2021-12-18] MEDS ORDERED: ATOR10TA52 PO (09:50)
[2021-12-18] MEDS ORDERED: FURO40TA4 PO (09:50)
[2021-12-18] MEDS ORDERED: SODI650T PO (09:50)
[2021-12-18] MEDS ORDERED: DOXY100C2 PO (09:50)
[2021-12-18] MEDS ORDERED: PANT40T PO (09:50)
[2021-12-18] MEDS: HYDROmorphone HCL 2 MG/ML VL IV PRN ×2 (10:14→18:13)
[2021-12-18] MEDS: NIFEdipine ER 30 MG TAB PO SCH (10:15)
[2021-12-18] MEDS: METOPROLOL TARTRATE 50 MG TAB PO SCH ×2 (10:17→22:10)
[2021-12-18] MEDS: amLODIPine BESYLATE 5 MG TAB PO SCH (10:18)
[2021-12-18] MEDS: PANTOPRAZOLE 40 MG TAB PO SCH (10:19)
[2021-12-18] MEDS ORDERED: cefTRIAXone 1GM/50ML D5W 50 ML IV ONE (12:00)
[2021-12-18 13:00] VITALS: BP 138/74
[2021-12-18 17:00] VITALS: BP 141/72
[2021-12-18 20:00] VITALS: BP 144/73
[2021-12-18 21:58] VITALS: BP 144/73
[2021-12-18] MEDS: ATORVASTATIN 20 MG TAB PO SCH (22:09)
[2021-12-19 05:00] VITALS: BP 145/78
[2021-12-19] MEDS: CLINDAMYCIN 600MG IV 50 ML IV SCH ×3 (05:46→22:12)
[2021-12-19] MEDS: ACCU-CHEK COMFORT CURVE STRIP VI SCH ×4 (05:48→22:14)
[2021-12-19] MEDS: InsuLIN REG 1unit/0.01ml Soln (100units/ml) SC SCH ×4 (05:56→22:16)
[2021-12-19] MEDS ORDERED: DexAMETHasone SOD PHOS 10MG/1ML VIAL INJ ONE (08:19)
[2021-12-19] MEDS ORDERED: fentaNYL CITRATE 100 MCG/2 ML VL ONE (08:19)
[2021-12-19] MEDS ORDERED: MIDAZOLAM HCL 2MG/2ML 2ml VIAL (1mg/ml) ONE ×2 (08:19→09:13)
[2021-12-19] MEDS ORDERED: SODIUM CHLORIDE LOCK 10 ML ONE (08:20)
[2021-12-19] MEDS ORDERED: ONDANSETRON HCL 4 MG/2 ML VIAL ONE (08:20)
[2021-12-19] MEDS ORDERED: PROPOFOL 10 MG/ML 20 ML IV ONE (08:20)
[2021-12-19] MEDS ORDERED: ceFAZolin 1GM VL ONE (08:44)
[2021-12-19] MEDS ORDERED: ACCU-CHEK COMFORT CURVE STRIP VI ONE (08:45)
[2021-12-19] MEDS ORDERED: METOCLOPRAMIDE HCL 5MG/ml INJ 2ml VIAL IV PRN (08:45)
[2021-12-19] MEDS ORDERED: MORPHINE SULFATE 4 MG/ML SYR/VIAL IV PRN (08:45)
[2021-12-19 08:46] LABS: INR 1.12 (0.9-1.15); Partial Thromboplastin Time 33.3 sec (23.6-33.0)
[2021-12-19] MEDS ORDERED: ceFAZolin 1GM/50ML 100 ML IV ONE (08:53)
[2021-12-19] MEDS: cefTRIAXone 1GM/50ML D5W 50 ML IV SCH (09:00)
[2021-12-19 09:12] VITALS: BP 146/74
[2021-12-19] MEDS ORDERED: NEOMYCIN-BACITRACIN-POLYM 15GM TOP OINT TOP ONE (09:36)
[2021-12-19] MEDS: PANTOPRAZOLE 40 MG TAB PO SCH (10:00)
[2021-12-19] MEDS: HYDROmorphone HCL 2 MG/ML VL IV PRN ×4 (10:24→14:32)
[2021-12-19] MEDS: NIFEdipine ER 30 MG TAB PO SCH (10:42)
[2021-12-19] MEDS: METOPROLOL TARTRATE 50 MG TAB PO SCH ×2 (10:42→22:14)
[2021-12-19] MEDS ORDERED: LABETALOL HCL 5 MG/ML 4ML SYRINGE IV ONE ×2 (10:50)
[2021-12-19] MEDS: amLODIPine BESYLATE 5 MG TAB PO SCH (11:33)
[2021-12-19 13:00] VITALS: BP 142/78
[2021-12-19 16:46] VITALS: BP 149/80
[2021-12-19] MEDS: HYDROcodone-ACET 5/325MG TAB PO PRN (16:59)
[2021-12-19] MEDS ORDERED: HYDROmorphone HCL 2 MG/ML VL IV ONE (18:15)
[2021-12-19 21:56] VITALS: BP 128/76
[2021-12-19] MEDS: ATORVASTATIN 20 MG TAB PO SCH (22:12)
[2021-12-20] MEDS: HYDROmorphone HCL 2 MG/ML VL IV PRN ×3 (03:27→20:59)
[2021-12-20 05:00] VITALS: BP 136/73
[2021-12-20] MEDS: CLINDAMYCIN 600MG IV 50 ML IV SCH ×3 (06:24→22:35)
[2021-12-20] MEDS: ACCU-CHEK COMFORT CURVE STRIP VI SCH ×4 (06:25→22:35)
[2021-12-20] MEDS: InsuLIN REG 1unit/0.01ml Soln (100units/ml) SC SCH ×4 (06:25→22:00)
[2021-12-20] MEDS: HYDROcodone-ACET 5/325MG TAB PO PRN ×3 (06:26→17:58)
[2021-12-20 06:47] LABS: Basophils # (auto) 0.1 10 ^3/uL (0-0.2); Basophils % (auto) 0.5 % (0.0-2.0); Eosinophils # (auto) 0 10 ^3/uL (0-0.8); Hematocrit 28.7 % (41.0-53.0); Hemoglobin 9.5 g/dL (13.5-17.5); Lymphocytes # (auto) 1.2 10 ^3/uL (0.4-5.4); Lymphocytes % (auto) 7.7 % (10.0-50.0); Mean Corpuscular Hemoglobin 29.5 pg (28.0-32.0); Mean Corpuscular Hgb Conc. 33.3 g/dL (32.0-36.0); Mean Corpuscular Volume 88.7 fL (80.0-100.0); Monocytes # (auto) 0.9 10 ^3/uL (0-1.3); Neutrophils # (auto) 13.1 10 ^3/uL (1.6-8.6); Neutrophils % (auto) 85.8 % (37.0-80.0); Red Blood Cells 3.23 10^6/uL (4.5-5.90); Red Cell Distribution Width 14.2 % (11.8-14.3); White Blood Cell 15.2 10^3/uL (4.4-10.8)
[2021-12-20 07:04] LABS: BUN/Creatinine Ratio 11.7; Potassium 4.7 mmol/L (3.5-5.1)
[2021-12-20 09:00] VITALS: BP 130/71
[2021-12-20] MEDS: cefTRIAXone 1GM/50ML D5W 50 ML IV SCH (09:27)
[2021-12-20] MEDS: amLODIPine BESYLATE 5 MG TAB PO SCH (09:27)
[2021-12-20] MEDS: METOPROLOL TARTRATE 50 MG TAB PO SCH ×2 (09:27→22:35)
[2021-12-20] MEDS: NIFEdipine ER 30 MG TAB PO SCH (09:28)
[2021-12-20] MEDS: PANTOPRAZOLE 40 MG TAB PO SCH (09:28)
[2021-12-20 13:00] VITALS: BP 139/79
[2021-12-20 13:45] LABS: Basophils # (auto) 0.1 10 ^3/uL (0-0.2); Basophils % (auto) 0.8 % (0.0-2.0); Eosinophils # (auto) 0 10 ^3/uL (0-0.8); Eosinophils % (auto) 0.1 % (0.0-7.0); Hematocrit 29.2 % (41.0-53.0); Hemoglobin 9.4 g/dL (13.5-17.5); Lymphocytes # (auto) 1.6 10 ^3/uL (0.4-5.4); Lymphocytes % (auto) 9.1 % (10.0-50.0); Mean Corpuscular Hemoglobin 28.8 pg (28.0-32.0); Mean Corpuscular Hgb Conc. 32.2 g/dL (32.0-36.0); Mean Corpuscular Volume 89.5 fL (80.0-100.0); Monocytes # (auto) 1.2 10 ^3/uL (0-1.3); Monocytes % (auto) 6.5 % (0.0-12.0); Neutrophils % (auto) 83.5 % (37.0-80.0); Nucleated Red Blood Cells % 0.1 %; Red Blood Cells 3.26 10^6/uL (4.5-5.90); White Blood Cell 17.9 10^3/uL (4.4-10.8)
[2021-12-20] MEDS ORDERED: SOD CHL 0.45% 1,000 ML IV ONE (15:15)
[2021-12-20 17:00] VITALS: BP 132/76
[2021-12-20 22:00] VITALS: BP 126/71
[2021-12-20] MEDS: ATORVASTATIN 20 MG TAB PO SCH (22:34)
[2021-12-20] MEDS: SODIUM BICARBONATE 650 MG TAB PO SCH (22:34)
[2021-12-21 04:55] VITALS: BP 140/74
[2021-12-21] MEDS: CLINDAMYCIN 600MG IV 50 ML IV SCH (05:45)
[2021-12-21] MEDS: HYDROmorphone HCL 2 MG/ML VL IV PRN (05:58)
[2021-12-21] MEDS: InsuLIN REG 1unit/0.01ml Soln (100units/ml) SC SCH ×2 (05:58→11:30)
[2021-12-21] MEDS: ACCU-CHEK COMFORT CURVE STRIP VI SCH ×2 (05:58→12:20)
[2021-12-21 06:46] LABS: Basophils # (auto) 0.1 10 ^3/uL (0-0.2); Basophils % (auto) 0.8 % (0.0-2.0); Eosinophils # (auto) 0.1 10 ^3/uL (0-0.8); Eosinophils % (auto) 1.1 % (0.0-7.0); Hematocrit 29.2 % (41.0-53.0); Hemoglobin 9.6 g/dL (13.5-17.5); Lymphocytes # (auto) 2.4 10 ^3/uL (0.4-5.4); Mean Corpuscular Hemoglobin 29.3 pg (28.0-32.0); Mean Corpuscular Hgb Conc. 32.8 g/dL (32.0-36.0); Mean Corpuscular Volume 89.2 fL (80.0-100.0); Monocytes # (auto) 0.8 10 ^3/uL (0-1.3); Monocytes % (auto) 6.7 % (0.0-12.0); Neutrophils # (auto) 8.5 10 ^3/uL (1.6-8.6); Neutrophils % (auto) 71.4 % (37.0-80.0); Red Blood Cells 3.27 10^6/uL (4.5-5.90); Red Cell Distribution Width 14.2 % (11.8-14.3)
[2021-12-21 07:00] LABS: Calcium 8.6 mg/dL (8.5-10.1); Potassium 4.2 mmol/L (3.5-5.1)
[2021-12-21 07:02] LABS: BUN/Creatinine Ratio 10.6
[2021-12-21 08:00] VITALS: BP 138/72
[2021-12-21 09:27] VITALS: BP 138/72
[2021-12-21] MEDS: PANTOPRAZOLE 40 MG TAB PO SCH (09:49)
[2021-12-21] MEDS: METOPROLOL TARTRATE 50 MG TAB PO SCH (09:50)
[2021-12-21] MEDS: NIFEdipine ER 30 MG TAB PO SCH (09:51)
[2021-12-21] MEDS: SODIUM BICARBONATE 650 MG TAB PO SCH (09:51)
[2021-12-21] MEDS: amLODIPine BESYLATE 5 MG TAB PO SCH (09:52)
[2021-12-21] MEDS: cefTRIAXone 1GM/50ML D5W 50 ML IV SCH (09:53)
[2021-12-21] MEDS ORDERED: CLIN300C8 PO (11:23)
[2021-12-21] MEDS ORDERED: HYDR-4902 PO (11:25)
[2021-12-21] MEDS ORDERED: LEVO-28 PO (11:35)
[2021-12-21 12:51] VITALS: BP 158/79
[2021-12-21 12:56] VITALS: BP 158/79
== END 2021-12-21 14:01 | disposition home health service (06) | DRG 305 ==
LOC: ER 01:14 → OVERFLOW 04:43 → WEST WING 09:11
PROVIDERS: ADMIT Nurse Practitioner; ATTEND Internal Medicine Nephrology
PROC: 0Y6M0ZB Detachment at Right Foot, Partial 2nd Ray, Open Approach (ICD-10-PCS; 2021-12-19)
PROC: 0Y6M0ZC Detachment at Right Foot, Partial 3rd Ray, Open Approach (ICD-10-PCS; 2021-12-19)
PROC: 0Y6M0ZD Detachment at Right Foot, Partial 4th Ray, Open Approach (ICD-10-PCS; 2021-12-19)
PROC: 0Y6M0ZF Detachment at Right Foot, Partial 5th Ray, Open Approach (ICD-10-PCS; 2021-12-19)
PROC: 0Y6M0Z9 Detachment at Right Foot, Partial 1st Ray, Open Approach (ICD-10-PCS; principal; 2021-12-19 09:03)
DX: E11.52 Type 2 diabetes mellitus with diabetic peripheral angiopathy with gangrene (principal); D63.8 Anemia in other chronic diseases classified elsewhere; E11.22 Type 2 diabetes mellitus with diabetic chronic kidney disease; E88.09 Other disorders of plasma-protein metabolism, not elsewhere classified; M86.8X7 Other osteomyelitis, ankle and foot; M87.874 Other osteonecrosis, right foot; E11.42 Type 2 diabetes mellitus with diabetic polyneuropathy; N18.4 Chronic kidney disease, stage 4 (severe); E11.69 Type 2 diabetes mellitus with other specified complication; F17.210 Nicotine dependence, cigarettes, uncomplicated; I12.9 Hypertensive chronic kidney disease with stage 1 through stage 4 chronic kidney disease, or unspecified chronic kidney disease; Z20.822 Contact with and (suspected) exposure to COVID-19
CPT/HCPCS: 36415; 71045; 73700; 80048; 80053; 82962; 83605; 85025; 85610; 85730; 87040; 93925; 96374; 96375; G0378; J0690; J0696; J1100; J1815; J2250; J2405; J2704; J3490

== ENCOUNTER 2022-01-15 15:28 | Emergency (ER) | payer MEDICAID ==
[~2022-01-15] VITALS: Ht 167.6 cm; Wt 86.2 kg
[~2022-01-15 15:28] MED LIST changes: +CLIN300C8 PO; +HYDR-4902 PO; +LEVO-28 PO; +PANT40T PO; +SODI650T PO
[2022-01-15] MEDS ORDERED: HYDROcodone-ACET 10/325MG TAB PO ONE (16:30)
[2022-01-15] MEDS ORDERED: HYDR-4902 PO (17:35)
[2022-01-15 18:17] VITALS: BP 169/91
== END 2022-01-15 18:18 | disposition home or self-care (01) ==
LOC: ER 15:28
DX: M79.671 Pain in right foot (principal); F17.210 Nicotine dependence, cigarettes, uncomplicated; F12.10 Cannabis abuse, uncomplicated; E11.22 Type 2 diabetes mellitus with diabetic chronic kidney disease; I12.9 Hypertensive chronic kidney disease with stage 1 through stage 4 chronic kidney disease, or unspecified chronic kidney disease; N18.9 Chronic kidney disease, unspecified
CPT/HCPCS: 73700

== ENCOUNTER 2022-01-25 10:13 | Emergency (ER) | payer MEDICAID ==
[~2022-01-25] VITALS: Ht 167.6 cm; Wt 83.9 kg
[2022-01-25] MEDS ORDERED: MORPHINE SULFATE 4 MG/ML SYR/VIAL IV ONE (11:30)
[2022-01-25] MEDS ORDERED: ONDANSETRON HCL 4 MG/2 ML VIAL IV ONE (11:30)
[2022-01-25 12:42] LABS: Basophils # (auto) 0.1 10 ^3/uL (0-0.2); Basophils % (auto) 1.1 % (0.0-2.0); Eosinophils # (auto) 0.1 10 ^3/uL (0-0.8); Eosinophils % (auto) 0.8 % (0.0-7.0); Hematocrit 28.9 % (41.0-53.0); Hemoglobin 9.6 g/dL (13.5-17.5); Lymphocytes # (auto) 1.4 10 ^3/uL (0.4-5.4); Lymphocytes % (auto) 14.7 % (10.0-50.0); Mean Corpuscular Hemoglobin 29.7 pg (28.0-32.0); Mean Corpuscular Hgb Conc. 33.1 g/dL (32.0-36.0); Mean Corpuscular Volume 89.9 fL (80.0-100.0); Monocytes # (auto) 0.5 10 ^3/uL (0-1.3); Monocytes % (auto) 5.9 % (0.0-12.0); Neutrophils # (auto) 7.2 10 ^3/uL (1.6-8.6); Neutrophils % (auto) 77.5 % (37.0-80.0); Red Blood Cells 3.22 10^6/uL (4.5-5.90); Red Cell Distribution Width 15.1 % (11.8-14.3); White Blood Cell 9.3 10^3/uL (4.4-10.8)
[2022-01-25 12:56] LABS: Calcium 8.8 mg/dL (8.5-10.1); Potassium 4.5 mmol/L (3.5-5.1)
[2022-01-25 12:58] LABS: BUN/Creatinine Ratio 9.5; Bilirubin, Total 0.2 mg/dL (0.2-1.0); Total Protein 7.3 g/dL (6.4-8.2)
[2022-01-25] MEDS ORDERED: MORPHINE SULFATE 4 MG/ML SYR/VIAL IM ONE (17:45)
[2022-01-25] MEDS ORDERED: ONDANSETRON ODT 4 MG TAB PO ONE (17:45)
[2022-01-25 17:52] VITALS: BP 166/88
== END 2022-01-25 17:52 | disposition home or self-care (01) ==
LOC: ER 10:13
DX: M79.671 Pain in right foot (principal); I12.9 Hypertensive chronic kidney disease with stage 1 through stage 4 chronic kidney disease, or unspecified chronic kidney disease; E11.22 Type 2 diabetes mellitus with diabetic chronic kidney disease; N18.9 Chronic kidney disease, unspecified; E78.5 Hyperlipidemia, unspecified; F17.210 Nicotine dependence, cigarettes, uncomplicated; Z79.82 Long term (current) use of aspirin; Z79.899 Other long term (current) drug therapy; Z79.2 Long term (current) use of antibiotics
CPT/HCPCS: 36415; 73700; 80053; 85025; 85652; 96372; 99284; J2270; Q0162

== ENCOUNTER 2022-02-05 14:43 | Inpatient (IN) | payer MEDICAID ==
[~2022-02-05] VITALS: Ht 167.6 cm; Wt 79.4 kg
[2022-02-05] MEDS ORDERED: CEFEPIME 1GM/ 50ML 50 ML IV ONE (15:15)
[2022-02-05] MEDS ORDERED: VANCOMYCIN 1GM/250ML 250 ML IV ONE (15:15)
[2022-02-05 17:57] LABS: Basophils # (auto) 0.2 10 ^3/uL (0-0.2); Basophils % (auto) 1.8 % (0.0-2.0); Eosinophils # (auto) 0.1 10 ^3/uL (0-0.8); Eosinophils % (auto) 1.2 % (0.0-7.0); Hematocrit 28.7 % (41.0-53.0); Hemoglobin 9.2 g/dL (13.5-17.5); Lymphocytes # (auto) 2.8 10 ^3/uL (0.4-5.4); Lymphocytes % (auto) 25.2 % (10.0-50.0); Mean Corpuscular Hemoglobin 29.3 pg (28.0-32.0); Mean Corpuscular Volume 91.6 fL (80.0-100.0); Monocytes # (auto) 0.7 10 ^3/uL (0-1.3); Monocytes % (auto) 5.9 % (0.0-12.0); Neutrophils # (auto) 7.5 10 ^3/uL (1.6-8.6); Neutrophils % (auto) 65.9 % (37.0-80.0); Nucleated Red Blood Cells % 0.1 %; Red Blood Cells 3.13 10^6/uL (4.5-5.90); Red Cell Distribution Width 15.7 % (11.8-14.3); White Blood Cell 11.3 10^3/uL (4.4-10.8)
[2022-02-05 18:16] LABS: Albumin 1.9 g/dL (3.4-5.0); Calcium 8.6 mg/dL (8.5-10.1); Potassium 4.8 mmol/L (3.5-5.1)
[2022-02-05 18:25] LABS: BUN/Creatinine Ratio 11.8; Bilirubin, Total 0.2 mg/dL (0.2-1.0); CRP High Sensitivity 4.87 mg/dL (< 0.3); Total Protein 7.4 g/dL (6.4-8.2)
[2022-02-06] MEDS ORDERED: ONDANSETRON HCL 4 MG/2 ML VIAL IV PRN (02:30)
[2022-02-06] MEDS ORDERED: HYDROcodone-ACET 10/325MG TAB PO ONE (02:30)
[2022-02-06] MEDS ORDERED: ACETAMINOPHEN 325 MG TAB PO PRN (02:30)
[2022-02-06] MEDS ORDERED: DEXTROSE (50%) 50ML SYRG IV PRN (02:30)
[2022-02-06 05:44] LABS: Basophils # (auto) 0.1 10 ^3/uL (0-0.2); Basophils % (auto) 1.4 % (0.0-2.0); Eosinophils # (auto) 0.2 10 ^3/uL (0-0.8); Eosinophils % (auto) 2.2 % (0.0-7.0); Hematocrit 27.4 % (41.0-53.0); Hemoglobin 9.2 g/dL (13.5-17.5); Lymphocytes # (auto) 2.2 10 ^3/uL (0.4-5.4); Lymphocytes % (auto) 24.2 % (10.0-50.0); Mean Corpuscular Hemoglobin 30.9 pg (28.0-32.0); Mean Corpuscular Hgb Conc. 33.4 g/dL (32.0-36.0); Mean Corpuscular Volume 92.4 fL (80.0-100.0); Monocytes # (auto) 0.8 10 ^3/uL (0-1.3); Monocytes % (auto) 8.1 % (0.0-12.0); Neutrophils % (auto) 64.1 % (37.0-80.0); Red Blood Cells 2.97 10^6/uL (4.5-5.90); White Blood Cell 9.3 10^3/uL (4.4-10.8)
[2022-02-06] MEDS: PIPERACILLIN-TAZOB 3.375GM 100 ML IV SCH ×3 (06:00→22:13)
[2022-02-06 06:03] LABS: BUN/Creatinine Ratio 13.1; Calcium 8.7 mg/dL (8.5-10.1); Potassium 4.9 mmol/L (3.5-5.1)
[2022-02-06] MEDS: CLINDAMYCIN 600MG IV 50 ML IV SCH ×3 (06:14→18:50)
[2022-02-06] MEDS: hydrALAZINE HCL 10 MG TAB PO PRN ×2 (06:32→11:05)
[2022-02-06 06:46] LABS: Urine Bacteria NONE SEEN /hpf (None Seen); Urine Blood TRACE /uL (Negative); Urine Hyaline Cast FEW /lpf (0 - 2); Urine Specific Gravity 1.015 (1.001-1.035); Urine WBC 1 /hpf (0 - 3); Urine WBC Clumps PRESENT /hpf (None Seen)
[2022-02-06] MEDS: InsuLIN REG 1unit/0.01ml Soln (100units/ml) SC SCH ×5 (07:00→22:00)
[2022-02-06] MEDS: ACCU-CHEK COMFORT CURVE STRIP VI SCH ×4 (08:09→22:14)
[2022-02-06] MEDS: MORPHINE SULFATE INJ 2 MG/ml SYRG IV PRN ×2 (09:27→20:35)
[2022-02-06] MEDS: HYDROcodone-ACET 5/325MG TAB PO PRN ×2 (12:41→23:59)
[2022-02-06] MEDS: amLODIPine BESYLATE 5 MG TAB PO SCH (14:25)
[2022-02-06] MEDS: METOPROLOL TARTRATE 50 MG TAB PO SCH ×2 (14:26→22:13)
[2022-02-06 17:00] VITALS: BP 174/86
[2022-02-06] MEDS: hydrALAZINE HCL 25 MG TAB PO SCH ×2 (18:51→23:58)
[2022-02-06 20:54] VITALS: BP 154/79
[2022-02-06 22:00] VITALS: BP 147/78
[2022-02-06] MEDS ORDERED: METOPROLOL TARTRATE 50 MG TAB PO SCH (22:00)
[2022-02-07] MEDS: CLINDAMYCIN 600MG IV 50 ML IV SCH ×4 (01:18→19:52)
[2022-02-07 05:00] VITALS: BP 156/81
[2022-02-07] MEDS: MORPHINE SULFATE INJ 2 MG/ml SYRG IV PRN ×3 (05:20→20:00)
[2022-02-07 05:56] LABS: Basophils # (auto) 0.1 10 ^3/uL (0-0.2); Eosinophils # (auto) 0.2 10 ^3/uL (0-0.8); Eosinophils % (auto) 1.9 % (0.0-7.0); Hematocrit 30.4 % (41.0-53.0); Hemoglobin 10.4 g/dL (13.5-17.5); Lymphocytes # (auto) 2.3 10 ^3/uL (0.4-5.4); Lymphocytes % (auto) 24.1 % (10.0-50.0); Mean Corpuscular Hemoglobin 31.1 pg (28.0-32.0); Mean Corpuscular Hgb Conc. 34.1 g/dL (32.0-36.0); Mean Corpuscular Volume 91.1 fL (80.0-100.0); Monocytes # (auto) 0.6 10 ^3/uL (0-1.3); Monocytes % (auto) 6.5 % (0.0-12.0); Neutrophils # (auto) 6.4 10 ^3/uL (1.6-8.6); Neutrophils % (auto) 66.5 % (37.0-80.0); Nucleated Red Blood Cells % 0.1 %; Red Blood Cells 3.34 10^6/uL (4.5-5.90); Red Cell Distribution Width 15.7 % (11.8-14.3); White Blood Cell 9.7 10^3/uL (4.4-10.8)
[2022-02-07 06:07] LABS: % Iron Saturation 14.7 % (20-55)
[2022-02-07 06:14] LABS: BUN/Creatinine Ratio 12.1; Calcium 8.6 mg/dL (8.5-10.1); Phosphorus 4.5 mg/dL (2.5-4.90); Potassium 4.7 mmol/L (3.5-5.1)
[2022-02-07] MEDS: InsuLIN REG 1unit/0.01ml Soln (100units/ml) SC SCH ×4 (06:25→23:08)
[2022-02-07] MEDS: ACCU-CHEK COMFORT CURVE STRIP VI SCH ×4 (06:25→22:50)
[2022-02-07] MEDS: hydrALAZINE HCL 25 MG TAB PO SCH ×3 (06:31→18:46)
[2022-02-07] MEDS: PIPERACILLIN-TAZOB 3.375GM 100 ML IV SCH ×3 (06:32→22:48)
[2022-02-07] MEDS: HYDROcodone-ACET 5/325MG TAB PO PRN ×3 (06:35→22:51)
[2022-02-07 08:00] VITALS: BP 129/71
[2022-02-07] MEDS ORDERED: PATIENTS OWN MEDICATION (Amlodipine Besylate 1 TAB) PO SCH (10:00)
[2022-02-07] MEDS: amLODIPine BESYLATE 5 MG TAB PO SCH (10:38)
[2022-02-07] MEDS: METOPROLOL TARTRATE 50 MG TAB PO SCH ×2 (10:39→22:49)
[2022-02-07] MEDS ORDERED: ROPIVACAINE 0.5% (5MG/ML) 20ML AMPULE IJ ONE (10:49)
[2022-02-07] MEDS ORDERED: ceFAZolin 1GM VL ONE (10:49)
[2022-02-07] MEDS ORDERED: MEPERIDINE HCL (25 MG/ML) 1ML VIAL ONE (10:57)
[2022-02-07] MEDS ORDERED: fentaNYL CITRATE 100 MCG/2 ML VL ONE (10:57)
[2022-02-07] MEDS ORDERED: MIDAZOLAM HCL 2MG/2ML 2ml VIAL (1mg/ml) ONE (10:57)
[2022-02-07] MEDS ORDERED: ceFAZolin 1GM/50ML 100 ML IV ONE (11:05)
[2022-02-07] MEDS ORDERED: DexAMETHasone SOD PHOS 10MG/1ML VIAL INJ ONE (12:28)
[2022-02-07] MEDS ORDERED: LABETALOL HCL 5 MG/ML 4ML SYRINGE IV PRN (12:30)
[2022-02-07] MEDS ORDERED: MORPHINE SULFATE 4 MG/ML SYR/VIAL IV PRN (12:30)
[2022-02-07] MEDS ORDERED: ONDANSETRON HCL 4 MG/2 ML VIAL IV PRN (12:30)
[2022-02-07] MEDS ORDERED: ePHEDrine SULFATE 50 MG/ML AMP IV PRN (12:30)
[2022-02-07] MEDS ORDERED: MIDAZOLAM HCL 2MG/2ML 2ml VIAL (1mg/ml) IV PRN (12:30)
[2022-02-07] MEDS ORDERED: hydrALAZINE HCL 20 MG/ML VL IV PRN (12:30)
[2022-02-07] MEDS ORDERED: PROPOFOL 10 MG/ML 20 ML IV ONE (12:38)
[2022-02-07] MEDS: HYDROmorphone HCL 2 MG/ML VL/or syr IV PRN ×2 (13:05→13:15)
[2022-02-07 14:43] LABS: INR 1.09 (0.9-1.15); Partial Thromboplastin Time 31.7 sec (23.6-33.0)
[2022-02-07 16:00] VITALS: BP 143/71
[2022-02-07] MEDS ORDERED: LIDOCAINE 1% (LOCAL ANESTH.) PF 5ml SDV ID ONE (17:45)
[2022-02-07] MEDS: FERROUS SULFATE 325mg EC TAB PO SCH (18:45)
[2022-02-07 22:00] VITALS: BP 158/69
[2022-02-07] MEDS: SODIUM CHLOR 0.9% PF (SALINE LOCK) 10ML VIAL/SYR IV SCH (22:49)
[2022-02-08] MEDS: hydrALAZINE HCL 25 MG TAB PO SCH ×5 (01:26→23:59)
[2022-02-08] MEDS: MORPHINE SULFATE INJ 2 MG/ml SYRG IV PRN ×3 (03:22→17:43)
[2022-02-08] MEDS: CLINDAMYCIN 600MG IV 50 ML IV SCH ×5 (03:22→23:30)
[2022-02-08 04:59] LABS: Basophils # (auto) 0.2 10 ^3/uL (0-0.2); Basophils % (auto) 1.1 % (0.0-2.0); Eosinophils # (auto) 0 10 ^3/uL (0-0.8); Eosinophils % (auto) 0.1 % (0.0-7.0); Hematocrit 27.5 % (41.0-53.0); Hemoglobin 9.1 g/dL (13.5-17.5); Lymphocytes # (auto) 0.9 10 ^3/uL (0.4-5.4); Lymphocytes % (auto) 6.3 % (10.0-50.0); Mean Corpuscular Hgb Conc. 32.9 g/dL (32.0-36.0); Monocytes # (auto) 0.5 10 ^3/uL (0-1.3); Monocytes % (auto) 3.4 % (0.0-12.0); Neutrophils % (auto) 89.1 % (37.0-80.0); Red Blood Cells 3.03 10^6/uL (4.5-5.90); Red Cell Distribution Width 15.6 % (11.8-14.3); White Blood Cell 14.5 10^3/uL (4.4-10.8)
[2022-02-08 05:00] VITALS: BP 135/71
[2022-02-08 05:20] LABS: Calcium 8.1 mg/dL (8.5-10.1); Potassium 5.5 mmol/L (3.5-5.1)
[2022-02-08 05:22] LABS: BUN/Creatinine Ratio 12.3
[2022-02-08] MEDS: PIPERACILLIN-TAZOB 3.375GM 100 ML IV SCH ×2 (05:51→07:05)
[2022-02-08] MEDS: ACCU-CHEK COMFORT CURVE STRIP VI SCH ×4 (05:52→22:43)
[2022-02-08] MEDS: HYDROcodone-ACET 5/325MG TAB PO PRN ×2 (05:53→23:36)
[2022-02-08] MEDS: InsuLIN REG 1unit/0.01ml Soln (100units/ml) SC SCH ×4 (05:54→22:44)
[2022-02-08] MEDS ORDERED: LACTATED RINGER'S 1,000 ML IV ONE (07:45)
[2022-02-08 08:00] VITALS: BP 135/86
[2022-02-08] MEDS ORDERED: SODIUM CHLORIDE 0.9% 1,000 ML IV ONE (08:00)
[2022-02-08] MEDS ORDERED: FUROSEMIDE 40 MG/4 ML VIAL IV ONE (08:00)
[2022-02-08] MEDS: FERROUS SULFATE 325mg EC TAB PO SCH ×2 (08:56→17:42)
[2022-02-08] MEDS: SODIUM CHLOR 0.9% PF (SALINE LOCK) 10ML VIAL/SYR IV SCH ×2 (09:14→22:43)
[2022-02-08] MEDS: METOPROLOL TARTRATE 50 MG TAB PO SCH ×2 (10:54→22:43)
[2022-02-08] MEDS: amLODIPine BESYLATE 5 MG TAB PO SCH (10:55)
[2022-02-08 12:00] VITALS: BP 141/83
[2022-02-08] MEDS: SODIUM CHLORIDE 0.9% 1,000 ML IV SCH ×2 (12:45→23:30)
[2022-02-08] MEDS: SODIUM ZIRCONIUM CYCL 10 GM PAK PO SCH ×2 (13:55→22:43)
[2022-02-08 16:00] VITALS: BP 143/80
[2022-02-08 22:00] VITALS: BP 132/68
[2022-02-09 05:00] VITALS: BP 125/66
[2022-02-09] MEDS: CLINDAMYCIN 600MG IV 50 ML IV SCH (05:17)
[2022-02-09] MEDS: hydrALAZINE HCL 25 MG TAB PO SCH ×3 (05:18→17:05)
[2022-02-09] MEDS: ACCU-CHEK COMFORT CURVE STRIP VI SCH ×4 (06:08→21:06)
[2022-02-09] MEDS: InsuLIN REG 1unit/0.01ml Soln (100units/ml) SC SCH ×4 (06:08→21:07)
[2022-02-09 07:08] LABS: Eosinophils # (auto) 0.2 10 ^3/uL (0-0.8); Eosinophils % (auto) 1.4 % (0.0-7.0); Hemoglobin 7.7 g/dL (13.5-17.5); Neutrophils # (auto) 9.1 10 ^3/uL (1.6-8.6)
[2022-02-09 07:09] LABS: Basophils # (auto) 0 10 ^3/uL (0-0.2); Basophils % (auto) 0.2 % (0.0-2.0); Lymphocytes # (auto) 2.5 10 ^3/uL (0.4-5.4); Lymphocytes % (auto) 19.4 % (10.0-50.0); Mean Corpuscular Hemoglobin 30.1 pg (28.0-32.0); Mean Corpuscular Hgb Conc. 33.3 g/dL (32.0-36.0); Mean Corpuscular Volume 90.4 fL (80.0-100.0); Monocytes # (auto) 0.9 10 ^3/uL (0-1.3); Monocytes % (auto) 7.3 % (0.0-12.0); Neutrophils % (auto) 71.7 % (37.0-80.0); Red Blood Cells 2.54 10^6/uL (4.5-5.90); White Blood Cell 12.6 10^3/uL (4.4-10.8)
[2022-02-09 07:18] LABS: Calcium 8.1 mg/dL (8.5-10.1); Potassium 4.5 mmol/L (3.5-5.1)
[2022-02-09 07:20] LABS: BUN/Creatinine Ratio 12.5
[2022-02-09 09:00] VITALS: BP 131/72
[2022-02-09] MEDS ORDERED: cefTRIAXone 1GM/50ML D5W 50 ML IV SCH (09:00)
[2022-02-09] MEDS: amLODIPine BESYLATE 5 MG TAB PO SCH (09:25)
[2022-02-09] MEDS: FERROUS SULFATE 325mg EC TAB PO SCH ×2 (09:26→17:04)
[2022-02-09] MEDS: SODIUM CHLOR 0.9% PF (SALINE LOCK) 10ML VIAL/SYR IV SCH ×2 (09:33→21:05)
[2022-02-09] MEDS: METOPROLOL TARTRATE 50 MG TAB PO SCH ×2 (10:14→22:27)
[2022-02-09] MEDS: AMPICILLIN & SULBACTAM SODIUM 3 GM in SODIUM CHL 0.9% 100 ML IV SCH ×2 (10:30→21:06)
[2022-02-09] MEDS: SODIUM CHLORIDE 0.9% 1,000 ML IV SCH (12:00)
[2022-02-09 13:00] VITALS: BP 141/78
[2022-02-09] MEDS: MORPHINE SULFATE INJ 2 MG/ml SYRG IV PRN (13:12)
[2022-02-09] MEDS ORDERED: FURO40TA4 PO (13:23)
[2022-02-09] MEDS ORDERED: METF-370 PO (13:23)
[2022-02-09] MEDS ORDERED: HYDR25TA87 PO (13:25)
[2022-02-09] MEDS ORDERED: CLINDAMYCIN 600MG IV 50 ML IV SCH (14:00)
[2022-02-09 17:00] VITALS: BP 144/72
[2022-02-09] MEDS: HYDROcodone-ACET 5/325MG TAB PO PRN (17:06)
[2022-02-09 20:38] LABS: Hemoglobin 8.3 g/dL (13.5-17.5)
[2022-02-09 22:00] VITALS: BP 159/78
[2022-02-10] MEDS: SODIUM CHLORIDE 0.9% 1,000 ML IV SCH ×3 (00:09→14:18)
[2022-02-10] MEDS: hydrALAZINE HCL 25 MG TAB PO SCH ×4 (00:10→17:40)
[2022-02-10] MEDS: HYDROcodone-ACET 5/325MG TAB PO PRN (00:23)
[2022-02-10 05:00] VITALS: BP 161/82
[2022-02-10] MEDS: InsuLIN REG 1unit/0.01ml Soln (100units/ml) SC SCH ×4 (06:01→21:37)
[2022-02-10] MEDS: ACCU-CHEK COMFORT CURVE STRIP VI SCH ×4 (06:01→21:30)
[2022-02-10 09:00] VITALS: BP 158/71
[2022-02-10] MEDS: MORPHINE SULFATE INJ 2 MG/ml SYRG IV PRN (09:07)
[2022-02-10] MEDS: FERROUS SULFATE 325mg EC TAB PO SCH ×2 (10:34→17:40)
[2022-02-10] MEDS: SODIUM CHLOR 0.9% PF (SALINE LOCK) 10ML VIAL/SYR IV SCH ×2 (10:35→21:39)
[2022-02-10] MEDS: amLODIPine BESYLATE 5 MG TAB PO SCH (10:36)
[2022-02-10] MEDS: METOPROLOL TARTRATE 50 MG TAB PO SCH ×2 (10:36→22:15)
[2022-02-10] MEDS: AMPICILLIN & SULBACTAM SODIUM 3 GM in SODIUM CHL 0.9% 100 ML IV SCH (10:37)
[2022-02-10 13:00] VITALS: BP 155/70
[2022-02-10] MEDS ORDERED: MEROPENEM 1GM IVPB 100 ML IV SCH ×2 (15:00→22:00)
[2022-02-10] MEDS: MEROPENEM 1GM IVPB 100 ML IV SCH (16:52)
[2022-02-10 22:00] VITALS: BP 149/66
[2022-02-11] MEDS: hydrALAZINE HCL 25 MG TAB PO SCH ×3 (00:08→12:34)
[2022-02-11] MEDS: MORPHINE SULFATE INJ 2 MG/ml SYRG IV PRN (00:09)
[2022-02-11] MEDS: SODIUM CHLORIDE 0.9% 1,000 ML IV SCH ×2 (00:30→10:16)
[2022-02-11] MEDS: MEROPENEM 1GM IVPB 100 ML IV SCH (04:17)
[2022-02-11] MEDS: HYDROcodone-ACET 5/325MG TAB PO PRN ×2 (04:20→05:26)
[2022-02-11 05:00] VITALS: BP 162/83
[2022-02-11] MEDS: ACCU-CHEK COMFORT CURVE STRIP VI SCH ×2 (06:23→11:30)
[2022-02-11] MEDS: InsuLIN REG 1unit/0.01ml Soln (100units/ml) SC SCH ×2 (06:23→11:30)
[2022-02-11 09:00] VITALS: BP 154/79
[2022-02-11] MEDS: SODIUM CHLOR 0.9% PF (SALINE LOCK) 10ML VIAL/SYR IV SCH (10:15)
[2022-02-11] MEDS: FERROUS SULFATE 325mg EC TAB PO SCH (10:15)
[2022-02-11] MEDS: amLODIPine BESYLATE 5 MG TAB PO SCH (10:16)
[2022-02-11] MEDS: METOPROLOL TARTRATE 50 MG TAB PO SCH (10:16)
[2022-02-11 13:00] VITALS: BP 156/70
[2022-02-11 15:35] VITALS: BP 156/70
== END 2022-02-11 16:45 | disposition home health service (06) | DRG 314 ==
LOC: ER 14:43 → TELE 02-06 02:19 → TELE-CENTR 02-06 15:46 → CENTRAL 02-06 21:21
PROVIDERS: ADMIT Nurse Practitioner Family; ATTEND Internal Medicine
PROC: 02HV33Z Insertion of Infusion Device into Superior Vena Cava, Percutaneous Approach (ICD-10-PCS; 2022-02-07)
PROC: 02HV33Z Insertion of Infusion Device into Superior Vena Cava, Percutaneous Approach (ICD-10-PCS; 2022-02-07)
PROC: B548ZZA Ultrasonography of Superior Vena Cava, Guidance (ICD-10-PCS; 2022-02-07)
PROC: 0QBN0ZZ Excision of Right Metatarsal, Open Approach (ICD-10-PCS; principal; 2022-02-07 11:54)
DX: T87.43 Infection of amputation stump, right lower extremity (principal); N17.9 Acute kidney failure, unspecified; A48.0 Gas gangrene; E11.52 Type 2 diabetes mellitus with diabetic peripheral angiopathy with gangrene; D63.1 Anemia in chronic kidney disease; L97.509 Non-pressure chronic ulcer of other part of unspecified foot with unspecified severity; M86.8X7 Other osteomyelitis, ankle and foot; E11.22 Type 2 diabetes mellitus with diabetic chronic kidney disease; E11.621 Type 2 diabetes mellitus with foot ulcer; E11.69 Type 2 diabetes mellitus with other specified complication; E78.5 Hyperlipidemia, unspecified; E87.5 Hyperkalemia; F17.210 Nicotine dependence, cigarettes, uncomplicated; I12.9 Hypertensive chronic kidney disease with stage 1 through stage 4 chronic kidney disease, or unspecified chronic kidney disease; S91.301A Unspecified open wound, right foot, initial encounter; X58.XXXA Exposure to other specified factors, initial encounter; Y83.8 Other surgical procedures as the cause of abnormal reaction of the patient, or of later complication, without mention of misadventure at the time of the procedure; I25.10 Atherosclerotic heart disease of native coronary artery without angina pectoris; L08.9 Local infection of the skin and subcutaneous tissue, unspecified; N18.4 Chronic kidney disease, stage 4 (severe); Z79.02 Long term (current) use of antithrombotics/antiplatelets; Z91.19 Patient's noncompliance with other medical treatment and regimen; Z79.82 Long term (current) use of aspirin; Z79.899 Other long term (current) drug therapy; Z82.49 Family history of ischemic heart disease and other diseases of the circulatory system; Z83.3 Family history of diabetes mellitus; Z89.431 Acquired absence of right foot; Z89.421 Acquired absence of other right toe(s); Z79.4 Long term (current) use of insulin; Y93.89 Activity, other specified; Y92.89 Other specified places as the place of occurrence of the external cause; Y99.8 Other external cause status
CPT/HCPCS: 36415; 36569; 71045; 73610; 73630; 73700; 80048; 80053; 81001; 82728; 82962; 83540; 83550; 83970; 84100; 85014; 85018; 85025; 85610; 85652; 85730; 86141; 87040; 87070; 87075; 87076; 87077; 87186; 87205; 93005; 96365; 96367; G0378; J0690; J0696; J1100; J1815; J2185; J2250; J2543; J2704; J3490

== ENCOUNTER 2022-02-20 23:42 | Emergency (ER) | payer MEDICAID ==
[~2022-02-20] VITALS: Ht 167.6 cm; Wt 90.7 kg
[~2022-02-20 23:42] MED LIST changes: -ASCO500T11 PO; -ASPI1TAB20 PO; -CHOL1CAP47 PO; -CLIN300C8 PO; +HYDR25TA87 PO; -LEVO-28 PO; +METF-370 PO; -NIFE90TA49 PO; -PANT40T PO; -SODI650T PO
[2022-02-21] MEDS ORDERED: MORPHINE SULFATE 4 MG/ML SYR/VIAL IM ONE (01:45)
[2022-02-21] MEDS ORDERED: PERCOT PO (02:17)
[2022-02-21 02:38] VITALS: BP 147/80
== END 2022-02-21 02:54 | disposition home or self-care (01) ==
LOC: ER 23:42
DX: M79.671 Pain in right foot (principal); S98.911D Complete traumatic amputation of right foot, level unspecified, subsequent encounter; E11.22 Type 2 diabetes mellitus with diabetic chronic kidney disease; I12.9 Hypertensive chronic kidney disease with stage 1 through stage 4 chronic kidney disease, or unspecified chronic kidney disease; N18.9 Chronic kidney disease, unspecified; E78.5 Hyperlipidemia, unspecified; F17.210 Nicotine dependence, cigarettes, uncomplicated; F12.10 Cannabis abuse, uncomplicated; X58.XXXD Exposure to other specified factors, subsequent encounter
CPT/HCPCS: 96372; 99283; J2270

== ENCOUNTER 2022-02-25 13:18 | Inpatient (IN) | payer MEDICAID ==
[~2022-02-25] VITALS: Ht 167.6 cm; Wt 87.0 kg
[~2022-02-25 13:18] MED LIST changes: +PERCOT PO
[2022-02-25 14:22] LABS: Eosinophils # (auto) 0.2 10 ^3/uL (0-0.8)
[2022-02-25 14:24] LABS: Basophils # (auto) 0.2 10 ^3/uL (0-0.2); Eosinophils % (auto) 2.7 % (0.0-7.0); Hematocrit 22.6 % (41.0-53.0); Hemoglobin 7.4 g/dL (13.5-17.5); Lymphocytes # (auto) 1.4 10 ^3/uL (0.4-5.4); Lymphocytes % (auto) 17.4 % (10.0-50.0); Mean Corpuscular Hemoglobin 29.9 pg (28.0-32.0); Mean Corpuscular Hgb Conc. 32.6 g/dL (32.0-36.0); Mean Corpuscular Volume 91.7 fL (80.0-100.0); Monocytes # (auto) 0.6 10 ^3/uL (0-1.3); Monocytes % (auto) 6.8 % (0.0-12.0); Neutrophils # (auto) 5.9 10 ^3/uL (1.6-8.6); Neutrophils % (auto) 71.1 % (37.0-80.0); Red Blood Cells 2.46 10^6/uL (4.5-5.90); Red Cell Distribution Width 15.9 % (11.8-14.3); White Blood Cell 8.2 10^3/uL (4.4-10.8)
[2022-02-25 14:39] LABS: Albumin 2.4 g/dL (3.4-5.0); Calcium 8.4 mg/dL (8.5-10.1); Magnesium 2.2 mg/dL (1.6-2.6)
[2022-02-25 14:41] LABS: BUN/Creatinine Ratio 14.6
[2022-02-25 14:44] LABS: Bilirubin, Total 1.1 mg/dL (0.2-1.0); Total Protein 6.9 g/dL (6.4-8.2)
[2022-02-25] MEDS ORDERED: FUROSEMIDE 100 MG/10ML VIAL IV ONE (15:15)
[2022-02-25] MEDS ORDERED: ALBUTEROL SULF 2.5 MG/0.5ML(0.5%) NEB SOLN NEB ONE ×2 (15:15→15:30)
[2022-02-25 15:18] LABS: Potassium 6.4 mmol/L (3.5-5.1)
[2022-02-25] MEDS ORDERED: SODIUM ZIRCONIUM CYCL 10 GM PAK PO ONE (15:30)
[2022-02-25] MEDS ORDERED: DEXTROSE (50%) 50ML SYRG IV ONE (15:30)
[2022-02-25] MEDS ORDERED: SODIUM BICARBONATE 8.4% INJ 50ML SYRINGE IV ONE (15:30)
[2022-02-25] MEDS ORDERED: InsuLIN REG 1unit/0.01ml Soln (100units/ml) IV ONE (15:30)
[2022-02-25] MEDS ORDERED: CALCIUM GLUC 1,000mg/50ml-NS 50 ML IV ONE (15:30)
[2022-02-25] MEDS ORDERED: HYDROcodone-ACET 5/325MG TAB PO ONE ×2 (16:30→20:45)
[2022-02-25 21:27] LABS: Albumin 2.2 g/dL (3.4-5.0); BUN/Creatinine Ratio 14.8; Calcium 8.3 mg/dL (8.5-10.1); Potassium 5.3 mmol/L (3.5-5.1)
[2022-02-25 21:30] LABS: Total Protein 6.4 g/dL (6.4-8.2)
[2022-02-25] MEDS ORDERED: ONDANSETRON HCL 4 MG/2 ML VIAL IV PRN (23:00)
[2022-02-25] MEDS ORDERED: MORPHINE SULFATE INJ 2 MG/ml SYRG IV PRN (23:00)
[2022-02-25] MEDS ORDERED: DEXTROSE (50%) 50ML SYRG IV PRN (23:00)
[2022-02-25] MEDS ORDERED: NITROGLYCERIN 0.4 MG SL TAB SL PRN (23:00)
[2022-02-26] MEDS: MORPHINE SULFATE INJ 2 MG/ml SYRG IV PRN ×3 (02:20→21:18)
[2022-02-26] MEDS: HEPARIN SODIUM (PORCINE) 5000 UNITS/ML 1ML VIAL SC SCH ×3 (06:30→21:02)
[2022-02-26] MEDS: ACCU-CHEK COMFORT CURVE STRIP VI SCH ×4 (07:00→21:19)
[2022-02-26] MEDS: InsuLIN REG 1unit/0.01ml Soln (100units/ml) SC SCH ×4 (07:00→21:20)
[2022-02-26 08:06] LABS: Eosinophils # (auto) 0.3 10 ^3/uL (0-0.8); Eosinophils % (auto) 3.1 % (0.0-7.0); White Blood Cell 8.5 10^3/uL (4.4-10.8)
[2022-02-26 08:08] LABS: Basophils # (auto) 0.1 10 ^3/uL (0-0.2); Basophils % (auto) 1.4 % (0.0-2.0); Hematocrit 20.6 % (41.0-53.0); Lymphocytes # (auto) 2.1 10 ^3/uL (0.4-5.4); Lymphocytes % (auto) 24.8 % (10.0-50.0); Mean Corpuscular Hemoglobin 30.7 pg (28.0-32.0); Mean Corpuscular Hgb Conc. 33.8 g/dL (32.0-36.0); Mean Corpuscular Volume 90.9 fL (80.0-100.0); Monocytes # (auto) 0.7 10 ^3/uL (0-1.3); Monocytes % (auto) 8.1 % (0.0-12.0); Neutrophils # (auto) 5.3 10 ^3/uL (1.6-8.6); Neutrophils % (auto) 62.6 % (37.0-80.0); Red Blood Cells 2.26 10^6/uL (4.5-5.90); Red Cell Distribution Width 15.7 % (11.8-14.3)
[2022-02-26 08:23] LABS: Hemoglobin 6.9 g/dL (13.5-17.5)
[2022-02-26 08:24] LABS: Calcium 8.5 mg/dL (8.5-10.1)
[2022-02-26 08:28] LABS: BUN/Creatinine Ratio 14.8; Bilirubin, Total 0.8 mg/dL (0.2-1.0); Total Protein 6.4 g/dL (6.4-8.2)
[2022-02-26 08:34] LABS: Potassium 5.9 mmol/L (3.5-5.1)
[2022-02-26] MEDS ORDERED: DEXTROSE (50%) 50ML SYRG IV ONE (09:15)
[2022-02-26] MEDS ORDERED: CALCIUM GLUC 1,000mg/50ml-NS 50 ML IV ONE (09:15)
[2022-02-26] MEDS ORDERED: InsuLIN REG 1unit/0.01ml Soln (100units/ml) IV ONE (09:15)
[2022-02-26] MEDS: ASPirin-EC 81 mg tab PO SCH (10:58)
[2022-02-26] MEDS: SODIUM ZIRCONIUM CYCL 10 GM PAK PO SCH ×2 (10:59→17:08)
[2022-02-26 13:42] LABS: BUN/Creatinine Ratio 14.6; Calcium 8.5 mg/dL (8.5-10.1)
[2022-02-26] MEDS ORDERED: SODIUM ZIRCONIUM CYCL 10 GM PAK PO SCH (14:00)
[2022-02-26 14:12] LABS: Potassium 5.7 mmol/L (3.5-5.1)
[2022-02-26] MEDS ORDERED: SODIUM ZIRCONIUM CYCL 10 GM PAK PO ONE (16:00)
[2022-02-26 16:16] VITALS: BP 174/80
[2022-02-26 16:22] VITALS: BP 174/80
[2022-02-26] MEDS: hydrALAZINE HCL 20 MG/ML VL IV PRN (17:40)
[2022-02-26 17:52] LABS: Protein, Urine 388.8 mg/dL (0.0-11.9)
[2022-02-26 19:05] LABS: Urine Bacteria FEW /hpf (None Seen); Urine Blood 1+ /uL (Negative); Urine Specific Gravity 1.014 (1.001-1.035); Urine WBC <1 /hpf (0 - 3)
[2022-02-26] MEDS: ATORVASTATIN 20 MG TAB PO SCH (21:19)
[2022-02-27] MEDS: SODIUM ZIRCONIUM CYCL 10 GM PAK PO SCH ×3 (02:30→17:45)
[2022-02-27] MEDS: hydrALAZINE HCL 20 MG/ML VL IV PRN (04:45)
[2022-02-27] MEDS: HEPARIN SODIUM (PORCINE) 5000 UNITS/ML 1ML VIAL SC SCH ×3 (05:45→21:10)
[2022-02-27] MEDS: InsuLIN REG 1unit/0.01ml Soln (100units/ml) SC SCH ×4 (06:13→22:00)
[2022-02-27] MEDS: ACCU-CHEK COMFORT CURVE STRIP VI SCH ×4 (06:13→22:09)
[2022-02-27 09:00] VITALS: BP 167/80
[2022-02-27 09:17] LABS: Basophils # (auto) 0.1 10 ^3/uL (0-0.2); Basophils % (auto) 1.1 % (0.0-2.0); Eosinophils # (auto) 0.3 10 ^3/uL (0-0.8); Eosinophils % (auto) 4.3 % (0.0-7.0); Hematocrit 25.8 % (41.0-53.0); Hemoglobin 8.5 g/dL (13.5-17.5); Lymphocytes % (auto) 26.1 % (10.0-50.0); Mean Corpuscular Hemoglobin 30.2 pg (28.0-32.0); Mean Corpuscular Hgb Conc. 32.8 g/dL (32.0-36.0); Mean Corpuscular Volume 92.1 fL (80.0-100.0); Monocytes # (auto) 0.6 10 ^3/uL (0-1.3); Monocytes % (auto) 7.8 % (0.0-12.0); Neutrophils # (auto) 4.8 10 ^3/uL (1.6-8.6); Neutrophils % (auto) 60.7 % (37.0-80.0); Red Blood Cells 2.81 10^6/uL (4.5-5.90); Red Cell Distribution Width 15.4 % (11.8-14.3); White Blood Cell 7.8 10^3/uL (4.4-10.8)
[2022-02-27] MEDS: ASPirin-EC 81 mg tab PO SCH (09:23)
[2022-02-27 09:39] LABS: BUN/Creatinine Ratio 13.7; Calcium 8.5 mg/dL (8.5-10.1); Potassium 5.3 mmol/L (3.5-5.1)
[2022-02-27] MEDS: FUROSEMIDE 40 MG TAB PO SCH (11:00)
[2022-02-27] MEDS: MORPHINE SULFATE INJ 2 MG/ml SYRG IV PRN ×3 (12:05→21:08)
[2022-02-27] MEDS: CALCIUM ACETATE 667 MG CAP PO SCH ×2 (12:36→17:45)
[2022-02-27 13:00] VITALS: BP 178/86
[2022-02-27] MEDS: hydrALAZINE HCL 25 MG TAB PO SCH ×2 (13:23→21:09)
[2022-02-27 17:00] VITALS: BP 144/72
[2022-02-27] MEDS: ATORVASTATIN 20 MG TAB PO SCH (21:09)
[2022-02-27] MEDS: MEROPENEM 500MG IVPB 50 ML IV SCH (21:09)
[2022-02-27 22:00] VITALS: BP 151/78
[2022-02-28] MEDS: SODIUM ZIRCONIUM CYCL 10 GM PAK PO SCH ×3 (02:45→17:10)
[2022-02-28 05:00] VITALS: BP 148/80
[2022-02-28] MEDS: hydrALAZINE HCL 25 MG TAB PO SCH ×3 (05:53→21:46)
[2022-02-28] MEDS: ACCU-CHEK COMFORT CURVE STRIP VI SCH ×4 (05:53→21:46)
[2022-02-28] MEDS: InsuLIN REG 1unit/0.01ml Soln (100units/ml) SC SCH ×4 (05:53→21:47)
[2022-02-28] MEDS: HEPARIN SODIUM (PORCINE) 5000 UNITS/ML 1ML VIAL SC SCH ×3 (05:54→21:46)
[2022-02-28] MEDS: MORPHINE SULFATE INJ 2 MG/ml SYRG IV PRN ×4 (05:56→23:40)
[2022-02-28 07:30] LABS: Calcium 8.5 mg/dL (8.5-10.1); Potassium 5.5 mmol/L (3.5-5.1)
[2022-02-28 07:32] LABS: BUN/Creatinine Ratio 13.9
[2022-02-28] MEDS ORDERED: DEXTROSE (50%) 50ML SYRG IV ONE (08:45)
[2022-02-28] MEDS ORDERED: InsuLIN REG 1unit/0.01ml Soln (100units/ml) IV ONE (08:45)
[2022-02-28] MEDS ORDERED: ALBUTEROL SULF 2.5 MG/0.5ML(0.5%) NEB SOLN NEB ONE (08:45)
[2022-02-28] MEDS ORDERED: SODIUM BICARBONATE 8.4 % INJ 50ML VIAL IV ONE (08:45)
[2022-02-28] MEDS ORDERED: CALCIUM GLUC 1,000mg/50ml-NS 50 ML IV ONE (08:45)
[2022-02-28] MEDS ORDERED: FUROSEMIDE 100 MG/10ML VIAL IV ONE (08:45)
[2022-02-28] MEDS: CALCIUM ACETATE 667 MG CAP PO SCH ×3 (08:59→17:10)
[2022-02-28 09:00] VITALS: BP 127/79
[2022-02-28] MEDS: FUROSEMIDE 40 MG TAB PO SCH (10:29)
[2022-02-28] MEDS: ASPirin-EC 81 mg tab PO SCH (10:29)
[2022-02-28] MEDS: MEROPENEM 500MG IVPB 50 ML IV SCH ×2 (10:30→21:44)
[2022-02-28 13:00] VITALS: BP 154/76
[2022-02-28 17:00] VITALS: BP 158/84
[2022-02-28] MEDS: hydrALAZINE HCL 20 MG/ML VL IV PRN (17:15)
[2022-02-28] MEDS: ATORVASTATIN 20 MG TAB PO SCH (21:44)
[2022-02-28 22:00] VITALS: BP 153/75
[2022-03-01] MEDS: SODIUM ZIRCONIUM CYCL 10 GM PAK PO SCH ×2 (03:39→10:03)
[2022-03-01 05:00] VITALS: BP 141/78
[2022-03-01] MEDS: hydrALAZINE HCL 25 MG TAB PO SCH ×2 (05:19→14:36)
[2022-03-01] MEDS: HEPARIN SODIUM (PORCINE) 5000 UNITS/ML 1ML VIAL SC SCH ×2 (05:20→14:35)
[2022-03-01] MEDS: ACCU-CHEK COMFORT CURVE STRIP VI SCH ×2 (06:28→11:42)
[2022-03-01] MEDS: InsuLIN REG 1unit/0.01ml Soln (100units/ml) SC SCH ×2 (06:28→11:30)
[2022-03-01 08:00] VITALS: BP 141/78
[2022-03-01] MEDS: CALCIUM ACETATE 667 MG CAP PO SCH ×2 (08:10→12:44)
[2022-03-01 09:00] VITALS: BP 154/81
[2022-03-01] MEDS: ASPirin-EC 81 mg tab PO SCH (09:46)
[2022-03-01] MEDS: MEROPENEM 500MG IVPB 50 ML IV SCH (09:46)
[2022-03-01] MEDS: FUROSEMIDE 40 MG TAB PO SCH (09:47)
[2022-03-01] MEDS ORDERED: SODI10PA PO (10:01)
[2022-03-01] MEDS ORDERED: FURO40TA4 PO (10:23)
[2022-03-01] MEDS: hydrALAZINE HCL 20 MG/ML VL IV PRN (11:41)
[2022-03-01 12:30] VITALS: BP_SYST 163; BP_SYST 98; BP_DIAS 49; BP_DIAS 81
[2022-03-01 13:07] LABS: BUN/Creatinine Ratio 12.9; Calcium 8.7 mg/dL (8.5-10.1); Potassium 4.7 mmol/L (3.5-5.1)
[2022-03-01 13:50] VITALS: BP 196/105
== END 2022-03-01 15:28 | disposition home health service (06) | DRG 425 ==
LOC: ER 13:18 → EDBD 13:18 → TELE 22:46 → TELE-EAST 02-26 15:53
PROVIDERS: ADMIT Hospitalist; ATTEND Hospitalist
DX: E87.5 Hyperkalemia (principal); E11.52 Type 2 diabetes mellitus with diabetic peripheral angiopathy with gangrene; M86.171 Other acute osteomyelitis, right ankle and foot; N17.9 Acute kidney failure, unspecified; I12.0 Hypertensive chronic kidney disease with stage 5 chronic kidney disease or end stage renal disease; D63.1 Anemia in chronic kidney disease; L97.509 Non-pressure chronic ulcer of other part of unspecified foot with unspecified severity; E11.22 Type 2 diabetes mellitus with diabetic chronic kidney disease; E11.621 Type 2 diabetes mellitus with foot ulcer; E11.69 Type 2 diabetes mellitus with other specified complication; E78.5 Hyperlipidemia, unspecified; F17.210 Nicotine dependence, cigarettes, uncomplicated; R79.89 Other specified abnormal findings of blood chemistry; Z20.822 Contact with and (suspected) exposure to COVID-19; Z82.49 Family history of ischemic heart disease and other diseases of the circulatory system; Z99.2 Dependence on renal dialysis; Z83.3 Family history of diabetes mellitus; Z91.15 Patient's noncompliance with renal dialysis; Z89.431 Acquired absence of right foot; N18.5 Chronic kidney disease, stage 5
CPT/HCPCS: 36415; 71045; 76775; 80048; 80053; 80202; 81001; 82306; 82570; 82962; 83735; 83880; 83970; 84100; 84156; 84300; 84484; 85025; 86850; 86900; 86901; 86920; 87040; 93005; 93306; 93971; 94640; 96365; 96375; 99291; G0378; J1815; J2185

== ENCOUNTER 2022-03-10 19:55 | Inpatient (IN) | payer MEDICAID ==
[~2022-03-10] VITALS: Ht 167.6 cm; Wt 88.0 kg
[~2022-03-10 19:55] MED LIST changes: +FURO40TA4 PO; -METF-370 PO; -PERCOT PO; +SODI10PA PO
[2022-03-10 22:20] LABS: Basophils # (auto) 0.1 10 ^3/uL (0-0.2); Basophils % (auto) 1.1 % (0.0-2.0); Eosinophils # (auto) 0.3 10 ^3/uL (0-0.8)
[2022-03-10 22:24] LABS: Eosinophils % (auto) 2.8 % (0.0-7.0); Hemoglobin 7.7 g/dL (13.5-17.5); Lymphocytes # (auto) 2.5 10 ^3/uL (0.4-5.4); Lymphocytes % (auto) 20.4 % (10.0-50.0); Mean Corpuscular Hgb Conc. 32.1 g/dL (32.0-36.0); Mean Corpuscular Volume 90.3 fL (80.0-100.0); Monocytes % (auto) 8.4 % (0.0-12.0); Neutrophils # (auto) 8.2 10 ^3/uL (1.6-8.6); Neutrophils % (auto) 67.3 % (37.0-80.0); Red Blood Cells 2.66 10^6/uL (4.5-5.90); Red Cell Distribution Width 15.3 % (11.8-14.3); White Blood Cell 12.2 10^3/uL (4.4-10.8)
[2022-03-10 22:37] LABS: Albumin 2.4 g/dL (3.4-5.0); Calcium 8.5 mg/dL (8.5-10.1); Potassium 3.5 mmol/L (3.5-5.1)
[2022-03-10 22:46] LABS: BUN/Creatinine Ratio 17.5; Bilirubin, Total 0.4 mg/dL (0.2-1.0); CRP High Sensitivity 7.02 mg/dL (< 0.3)
[2022-03-10 23:11] LABS: Urine Bacteria NONE SEEN /hpf (None Seen); Urine Blood TRACE /uL (Negative); Urine Specific Gravity 1.014 (1.001-1.035); Urine WBC <1 /hpf (0 - 3)
[2022-03-11] MEDS ORDERED: MORPHINE SULFATE INJ 2 MG/ml SYRG IV PRN (02:30)
[2022-03-11] MEDS ORDERED: DEXTROSE (50%) 50ML SYRG IV PRN (02:30)
[2022-03-11] MEDS ORDERED: ONDANSETRON HCL 4 MG/2 ML VIAL IV PRN (02:30)
[2022-03-11] MEDS ORDERED: DOCUSATE SOD 100 MG CAP PO PRN (02:30)
[2022-03-11] MEDS ORDERED: NITROGLYCERIN 0.4 MG SL TAB SL PRN (02:30)
[2022-03-11] MEDS: SODIUM CHLORIDE 0.9% 1,000 ML IV SCH (03:18)
[2022-03-11] MEDS ORDERED: PATIENTS OWN MEDICATION (meropenem 1 GRAMS) IV SCH (06:00)
[2022-03-11] MEDS: InsuLIN REG 1unit/0.01ml Soln (100units/ml) SC SCH ×3 (06:00→17:42)
[2022-03-11] MEDS: ACCU-CHEK COMFORT CURVE STRIP VI SCH ×3 (06:27→17:42)
[2022-03-11 06:31] LABS: Basophils # (auto) 0.1 10 ^3/uL (0-0.2); Basophils % (auto) 1.2 % (0.0-2.0); Eosinophils # (auto) 0.3 10 ^3/uL (0-0.8); Hematocrit 22.4 % (41.0-53.0); Hemoglobin 7.2 g/dL (13.5-17.5); Lymphocytes # (auto) 2.5 10 ^3/uL (0.4-5.4); Lymphocytes % (auto) 22.7 % (10.0-50.0); Mean Corpuscular Hemoglobin 29.3 pg (28.0-32.0); Mean Corpuscular Hgb Conc. 32.1 g/dL (32.0-36.0); Mean Corpuscular Volume 91.4 fL (80.0-100.0); Monocytes # (auto) 0.9 10 ^3/uL (0-1.3); Monocytes % (auto) 7.9 % (0.0-12.0); Neutrophils # (auto) 7.3 10 ^3/uL (1.6-8.6); Neutrophils % (auto) 65.2 % (37.0-80.0); Nucleated Red Blood Cells % 0.1 %; Red Blood Cells 2.45 10^6/uL (4.5-5.90); Red Cell Distribution Width 15.2 % (11.8-14.3); White Blood Cell 11.2 10^3/uL (4.4-10.8)
[2022-03-11 06:46] LABS: INR 1.1 (0.9-1.15)
[2022-03-11 06:53] LABS: BUN/Creatinine Ratio 17.7; Calcium 8.4 mg/dL (8.5-10.1); Potassium 3.4 mmol/L (3.5-5.1)
[2022-03-11] MEDS ORDERED: MEROPENEM 1GM IVPB 100 ML IV SCH (08:00)
[2022-03-11] MEDS: ENOXAPARIN SOD 30 MG/0.3 ML SYRINGE SC SCH (10:05)
[2022-03-11 17:00] VITALS: BP 163/78
[2022-03-11] MEDS: MEROPENEM 1GM IVPB 100 ML IV SCH (17:06)
[2022-03-11] MEDS: HYDROcodone-ACET 5/325MG TAB PO PRN (17:20)
[2022-03-11 22:00] VITALS: BP 130/67
[2022-03-12 05:00] VITALS: BP 154/65
[2022-03-12] MEDS: ACCU-CHEK COMFORT CURVE STRIP VI SCH ×4 (05:22→20:06)
[2022-03-12] MEDS: InsuLIN REG 1unit/0.01ml Soln (100units/ml) SC SCH ×4 (05:23→18:00)
[2022-03-12] MEDS: MEROPENEM 1GM IVPB 100 ML IV SCH ×2 (06:40→20:14)
[2022-03-12 09:00] VITALS: BP 149/80
[2022-03-12] MEDS: ENOXAPARIN SOD 30 MG/0.3 ML SYRINGE SC SCH (10:21)
[2022-03-12] MEDS: HYDROcodone-ACET 5/325MG TAB PO PRN ×3 (10:22→19:45)
[2022-03-12 13:00] VITALS: BP 154/74
[2022-03-12 16:49] VITALS: BP 149/74
[2022-03-12] MEDS: SODIUM CHLORIDE 0.9% 1,000 ML IV SCH (20:05)
[2022-03-12 22:00] VITALS: BP 140/71
[2022-03-13 05:00] VITALS: BP 160/80
[2022-03-13] MEDS: ACCU-CHEK COMFORT CURVE STRIP VI SCH ×4 (05:18→18:11)
[2022-03-13] MEDS: InsuLIN REG 1unit/0.01ml Soln (100units/ml) SC SCH ×4 (05:19→18:00)
[2022-03-13] MEDS: MEROPENEM 1GM IVPB 100 ML IV SCH ×2 (06:11→18:10)
[2022-03-13 09:06] VITALS: BP 133/76
[2022-03-13] MEDS: HYDROcodone-ACET 5/325MG TAB PO PRN ×2 (10:00→17:00)
[2022-03-13 12:53] VITALS: BP 143/67
[2022-03-13] MEDS: ENOXAPARIN SOD 30 MG/0.3 ML SYRINGE SC SCH (14:18)
[2022-03-13] MEDS: SODIUM CHLORIDE 0.9% 1,000 ML IV SCH (14:22)
[2022-03-13] MEDS ORDERED: amLODIPine BESYLATE 5 MG TAB PO SCH (15:30)
[2022-03-13] MEDS ORDERED: hydrALAZINE HCL 20 MG/ML VL IV PRN (15:30)
[2022-03-13 16:47] VITALS: BP 170/84
[2022-03-13 18:05] LABS: Eosinophils # (auto) 0.3 10 ^3/uL (0-0.8); Monocytes # (auto) 0.6 10 ^3/uL (0-1.3); Monocytes % (auto) 7.3 % (0.0-12.0)
[2022-03-13 18:07] LABS: Basophils # (auto) 0.2 10 ^3/uL (0-0.2); Basophils % (auto) 2.1 % (0.0-2.0); Hematocrit 22.3 % (41.0-53.0); Hemoglobin 7.3 g/dL (13.5-17.5); Lymphocytes # (auto) 2.1 10 ^3/uL (0.4-5.4); Lymphocytes % (auto) 24.7 % (10.0-50.0); Mean Corpuscular Hemoglobin 29.4 pg (28.0-32.0); Mean Corpuscular Hgb Conc. 32.8 g/dL (32.0-36.0); Mean Corpuscular Volume 89.7 fL (80.0-100.0); Neutrophils # (auto) 5.3 10 ^3/uL (1.6-8.6); Neutrophils % (auto) 62.9 % (37.0-80.0); Nucleated Red Blood Cells % 0.1 %; Red Blood Cells 2.48 10^6/uL (4.5-5.90); Red Cell Distribution Width 15.2 % (11.8-14.3); White Blood Cell 8.4 10^3/uL (4.4-10.8)
[2022-03-13 18:20] LABS: BUN/Creatinine Ratio 16.8; Calcium 8.5 mg/dL (8.5-10.1); Potassium 4.3 mmol/L (3.5-5.1)
[2022-03-13 22:00] VITALS: BP 164/81
[2022-03-14] MEDS: HYDROcodone-ACET 5/325MG TAB PO PRN ×2 (03:13→16:10)
[2022-03-14 05:00] VITALS: BP 160/83
[2022-03-14] MEDS: MEROPENEM 1GM IVPB 100 ML IV SCH ×2 (05:34→17:00)
[2022-03-14] MEDS: InsuLIN REG 1unit/0.01ml Soln (100units/ml) SC SCH ×4 (06:00→18:00)
[2022-03-14] MEDS: ACCU-CHEK COMFORT CURVE STRIP VI SCH ×4 (06:10→18:00)
[2022-03-14 08:15] VITALS: BP 160/98
[2022-03-14] MEDS ORDERED: METOPROLOL TARTRATE 50 MG TAB PO SCH (10:00)
[2022-03-14] MEDS ORDERED: amLODIPine BESYLATE 5 MG TAB PO SCH (10:00)
[2022-03-14] MEDS: ENOXAPARIN SOD 30 MG/0.3 ML SYRINGE SC SCH (10:39)
[2022-03-14 12:10] VITALS: BP 174/87
[2022-03-14 16:25] VITALS: BP 138/76
[2022-03-14 17:46] VITALS: BP 160/98
== END 2022-03-14 18:00 | disposition short-term general hospital (02) | DRG 197 ==
LOC: ER 19:55 → OVERFLOW 03-11 02:18 → WEST WING 03-11 14:32
PROVIDERS: ADMIT Hospitalist; ATTEND Hospitalist
DX: E11.51 Type 2 diabetes mellitus with diabetic peripheral angiopathy without gangrene (principal); N17.9 Acute kidney failure, unspecified; E11.22 Type 2 diabetes mellitus with diabetic chronic kidney disease; L97.509 Non-pressure chronic ulcer of other part of unspecified foot with unspecified severity; E11.621 Type 2 diabetes mellitus with foot ulcer; E11.69 Type 2 diabetes mellitus with other specified complication; F17.210 Nicotine dependence, cigarettes, uncomplicated; I12.9 Hypertensive chronic kidney disease with stage 1 through stage 4 chronic kidney disease, or unspecified chronic kidney disease; Z20.822 Contact with and (suspected) exposure to COVID-19; E78.5 Hyperlipidemia, unspecified; K21.9 Gastro-esophageal reflux disease without esophagitis; M86.8X7 Other osteomyelitis, ankle and foot; N18.4 Chronic kidney disease, stage 4 (severe); Z79.01 Long term (current) use of anticoagulants; Z79.82 Long term (current) use of aspirin; Z82.49 Family history of ischemic heart disease and other diseases of the circulatory system; Z83.3 Family history of diabetes mellitus; Z89.511 Acquired absence of right leg below knee; Z79.84 Long term (current) use of oral hypoglycemic drugs
CPT/HCPCS: 36415; 71045; 73630; 73700; 80048; 80053; 81001; 82962; 85025; 85610; 85652; 86141; 93005; 93926; 96361; 96365; 96366; 96372; G0378; J2185

== ENCOUNTER 2023-08-24 14:42 | Inpatient (IN) | payer MEDICAID, OTHER ==
[~2023-08-24] VITALS: Ht 167.6 cm; Wt 88.5 kg
[~2023-08-24 14:42] MED LIST changes: -AMLO-496 PO; +AMLO1TAB23 PO
[2023-08-24 16:14] LABS: Basophils # (auto) 0.1 10 ^3/uL (0-0.2); Eosinophils # (auto) 0 10 ^3/uL (0-0.8); Mean Corpuscular Hgb Conc. 30.4 g/dL (32.0-36.0)
[2023-08-24 16:15] LABS: Eosinophils % (auto) 0.5 % (0.0-7.0); Hematocrit 22.3 % (41.0-53.0); Lymphocytes # (auto) 0.8 10 ^3/uL (0.4-5.4); Lymphocytes % (auto) 8.9 % (10.0-50.0); Mean Corpuscular Hemoglobin 30.7 pg (28.0-32.0); Monocytes # (auto) 0.7 10 ^3/uL (0-1.3); Monocytes % (auto) 7.9 % (0.0-12.0); Neutrophils # (auto) 7.4 10 ^3/uL (1.6-8.6); Neutrophils % (auto) 81.7 % (37.0-80.0); Red Cell Distribution Width 18.5 % (11.8-14.3)
[2023-08-24] MEDS ORDERED: ASPirin 325 MG TAB PO ONE (16:15)
[2023-08-24 16:31] LABS: Alkaline Phosphatase 102 U/L (46-116)
[2023-08-24 16:32] LABS: Alanine Aminotransferase 71 U/L (7-40); Albumin 3.6 g/dL (3.2-4.8); Anion Gap 15 (5-15); Aspartate Aminotransferase 47 U/L (13-40); BUN/Creatinine Ratio 10.6 (10.0-20.0); Bilirubin, Total 0.2 mg/dL (0.2-1.0); Calcium 8.2 mg/dL (8.7-10.4); Carbon Dioxide 12 mmol/L (20-30); Chloride 109 mmol/L (98-107); Glucose 85 mg/dL (74-106); Sodium 136 mmol/L (136-145); Total Protein 6.4 g/dL (5.7-8.2)
[2023-08-24 16:38] LABS: Urine Bacteria NONE SEEN /hpf (None Seen); Urine Blood 1+ /uL (Negative); Urine Clarity Clear (Clear); Urine Color Colorless (Yellow); Urine Protein, UAD 3+ (Negative); Urine Specific Gravity 1.011 (1.001-1.035); Urine Urobilinogen Normal (Negative); Urine WBC 3 /hpf (0 - 3)
[2023-08-24 16:47] LABS: Blood Urea Nitrogen 96 mg/dL (9-23); Potassium 5.7 mmol/L (3.5-5.1)
[2023-08-24 16:48] LABS: Hemoglobin 6.8 g/dL (13.5-17.5)
[2023-08-24 16:57] LABS: INR 1.14 (0.9-1.15); Partial Thromboplastin Time 23.7 SEC (24.5-34.5); Prothrombin Time 11.9 sec (9.3-11.8)
[2023-08-24 16:57] LABS: Amphetamine Screen, Urine Neg (NEGATIVE); Barbiturate Scree,Urine Neg (NEGATIVE); Benzodiazephine Screen, Urine Neg (NEGATIVE); Cannabinoid Screen, Urine Pos (NEGATIVE); Cocaine Screen, Urine Neg (NEGATIVE); Opiate Scree,Urine Neg (NEGATIVE); Phencyclidine Screen, Urine Neg (NEGATIVE)
[2023-08-24] MEDS ORDERED: SODIUM ZIRCONIUM CYCL 10 GM PAK PO ONE (17:30)
[2023-08-24] MEDS ORDERED: ENOXAPARIN SOD 40 MG/0.4 ML SYRINGE SC ONE (17:30)
[2023-08-24 18:36] LABS: Folate (Folic Acid) 9.06 ng/mL (>5.38)
[2023-08-24 18:38] LABS: % Iron Saturation 5.3 % (20-55); Ferritin 178.5 ng/mL (22-322)
[2023-08-24] MEDS ORDERED: hydrALAZINE HCL 20 MG/ML VL IV ONE (22:00)
[2023-08-24] MEDS ORDERED: FUROSEMIDE 100 MG/10ML VIAL IV ONE (22:00)
[2023-08-24 22:44] LABS: COVID19 ANTIGEN SOFIA FIA NEGATIVE (NEGATIVE); Rapid Influenza A Negative (Negative); Rapid Influenza B Negative (Negative)
[2023-08-24] MEDS ORDERED: NITROGLYCERIN 0.4 MG SL TAB SL PRN (23:00)
[2023-08-24] MEDS ORDERED: MORPHINE SULFATE INJ 2 MG/ml SYRG IV PRN (23:00)
[2023-08-24] MEDS ORDERED: ONDANSETRON HCL 4 MG/2 ML VIAL IV PRN (23:00)
[2023-08-24 23:16] LABS: Chloride 109 mmol/L (98-107); Sodium 137 mmol/L (136-145)
[2023-08-24 23:17] LABS: Anion Gap 15 (5-15); Calcium 8.3 mg/dL (8.7-10.4); Carbon Dioxide 13 mmol/L (20-30)
[2023-08-25] VITALS (32 sets, daily range): BP systolic 134–181; BP diastolic 66–95; PULSE 89–106; RESP 16–27; TEMP 97.8–98.7; O2SAT 95–100
[2023-08-25 00:58] LABS: BUN/Creatinine Ratio 12.1 (10.0-20.0); Glucose 74 mg/dL (74-106)
[2023-08-25 02:26] LABS: Blood Urea Nitrogen 112 mg/dL (9-23); Potassium 5.8 mmol/L (3.5-5.1)
[2023-08-25] MEDS ORDERED: FUROSEMIDE 40 MG/4 ML VIAL IV SCH (06:00)
[2023-08-25] MEDS: hydrALAZINE HCL 20 MG/ML VL IV PRN ×2 (06:26→18:09)
[2023-08-25] MEDS ORDERED: SODIUM ZIRCONIUM CYCL 10 GM PAK PO ONE (06:30)
[2023-08-25] MEDS ORDERED: SODIUM BICARBONATE 8.4 % INJ 50ML VIAL IV ONE ×2 (09:30→16:00)
[2023-08-25 11:37] LABS: Creatinine, Urine 41.51 mg/dL (30.0-125.0)
[2023-08-25 11:40] LABS: Protein, Urine 465.1 mg/dL (0.0-11.9)
[2023-08-25] MEDS: ASPirin 81 mg TAB PO SCH (11:43)
[2023-08-25] MEDS: CARVEDILOL 3.125 MG TAB PO SCH ×2 (11:43→22:05)
[2023-08-25] MEDS: FUROSEMIDE INJECTION 100 MG in SODIUM CHL 0.9% 100 ML IV SCH ×2 (12:11→18:38)
[2023-08-25 14:34] LABS: Basophils # (auto) 0 10 ^3/uL (0-0.2); Eosinophils # (auto) 0 10 ^3/uL (0-0.8); Hematocrit 26.3 % (41.0-53.0); Lymphocytes # (auto) 0.9 10 ^3/uL (0.4-5.4); Red Blood Cells 2.85 10^6/uL (4.5-5.90); Red Cell Distribution Width 17.8 % (11.8-14.3)
[2023-08-25 14:36] LABS: Basophils % (auto) 0.4 % (0.0-2.0); Eosinophils % (auto) 0.2 % (0.0-7.0); Hemoglobin 8.6 g/dL (13.5-17.5); Lymphocytes % (auto) 6.8 % (10.0-50.0); Mean Corpuscular Hemoglobin 30.2 pg (28.0-32.0); Mean Corpuscular Hgb Conc. 32.8 g/dL (32.0-36.0); Mean Corpuscular Volume 92.1 fL (80.0-100.0); Monocytes % (auto) 7.5 % (0.0-12.0); Neutrophils # (auto) 10.9 10 ^3/uL (1.6-8.6); Neutrophils % (auto) 85.1 % (37.0-80.0); Nucleated Red Blood Cells % 0.2 %; White Blood Cell 12.8 10^3/uL (4.4-10.8)
[2023-08-25 14:56] LABS: Alanine Aminotransferase 47 U/L (7-40); Albumin 3.1 g/dL (3.2-4.8); Alkaline Phosphatase 93 U/L (46-116); Anion Gap 18.00001 (5-15); Aspartate Aminotransferase 21 U/L (13-40); Bilirubin, Total 0.3 mg/dL (0.2-1.0); Calcium 8.5 mg/dL (8.5-10.1); Chloride 109 mmol/L (98-107); Cholesterol 103 mg/dL (< 200); Glucose 119 mg/dL (74-106); HDL Cholesterol 45 mg/dL (40-59); LDL Cholesterol 43 mg/dL (< 100); Potassium 5.4 mmol/L (3.5-5.1); Sodium 137 mmol/L (136-145); Total Protein 5.3 g/dL (5.7-8.2); Triglycerides 61 mg/dL (< 150)
[2023-08-25 15:17] LABS: Blood Urea Nitrogen 139 mg/dL (9-23); Carbon Dioxide < 10 mmol/L (20-30)
[2023-08-25 15:27] LABS: BUN/Creatinine Ratio 15.5 (10.0-20.0)
[2023-08-25 15:32] LABS: Magnesium 1.5 mg/dL (1.6-2.6)
[2023-08-25 15:34] LABS: Phosphorus 11.1 mg/dL (2.4-5.1)
[2023-08-25] MEDS ORDERED: SODIUM BICARBONATE 50ML VIAL 150 ML in D5W 5% 1,000 ML IV SCH (16:00)
[2023-08-25 16:19] LABS: Base Excess -14.4 mmol/L (-2.0-2.0)
[2023-08-25] MEDS: CALCIUM ACETATE 667 MG CAP PO SCH (18:09)
[2023-08-25] MEDS ORDERED: ATORVASTATIN 20 MG TAB PO SCH (22:00)
[2023-08-25] MEDS: ATORVASTATIN 20 MG TAB PO SCH (22:04)
[2023-08-26] VITALS (20 sets, daily range): BP systolic 133–187; BP diastolic 64–92; PULSE 83–130; RESP 11–30; TEMP 97.6–98; O2SAT 95–100
[2023-08-26] MEDS: FUROSEMIDE INJECTION 100 MG in SODIUM CHL 0.9% 100 ML IV SCH ×3 (03:58→22:43)
[2023-08-26 06:05] LABS: Basophils # (auto) 0 10 ^3/uL (0-0.2); Basophils % (auto) 0.2 % (0.0-2.0); Eosinophils # (auto) 0.1 10 ^3/uL (0-0.8); Eosinophils % (auto) 0.9 % (0.0-7.0); Hematocrit 26.4 % (41.0-53.0); Hemoglobin 8.6 g/dL (13.5-17.5); Lymphocytes # (auto) 1.1 10 ^3/uL (0.4-5.4); Lymphocytes % (auto) 8.4 % (10.0-50.0); Mean Corpuscular Hemoglobin 29.8 pg (28.0-32.0); Mean Corpuscular Hgb Conc. 32.4 g/dL (32.0-36.0); Mean Corpuscular Volume 91.9 fL (80.0-100.0); Monocytes # (auto) 1.1 10 ^3/uL (0-1.3); Monocytes % (auto) 8.7 % (0.0-12.0); Neutrophils # (auto) 10.2 10 ^3/uL (1.6-8.6); Neutrophils % (auto) 81.8 % (37.0-80.0); Red Blood Cells 2.87 10^6/uL (4.5-5.90); Red Cell Distribution Width 18.3 % (11.8-14.3); White Blood Cell 12.5 10^3/uL (4.4-10.8)
[2023-08-26 06:28] LABS: Alanine Aminotransferase 37 U/L (7-40); Albumin 3.2 g/dL (3.2-4.8); Alkaline Phosphatase 86 U/L (46-116); Anion Gap 18 (5-15); Aspartate Aminotransferase 14 U/L (13-40); BUN/Creatinine Ratio 14.1 (10.0-20.0); Calcium 8.8 mg/dL (8.5-10.1); Carbon Dioxide 10 mmol/L (20-30); Chloride 108 mmol/L (98-107); Glucose 93 mg/dL (74-106); Potassium 5.3 mmol/L (3.5-5.1); Sodium 136 mmol/L (136-145)
[2023-08-26 06:29] LABS: Bilirubin, Total 0.2 mg/dL (0.2-1.0); Total Protein 5.7 g/dL (5.7-8.2)
[2023-08-26 06:41] LABS: Blood Urea Nitrogen 129 mg/dL (9-23)
[2023-08-26] MEDS: CALCIUM ACETATE 667 MG CAP PO SCH ×3 (08:00→17:37)
[2023-08-26] MEDS ORDERED: SODIUM BICARBONATE 8.4 % INJ 50ML VIAL IV ONE (08:00)
[2023-08-26 09:00] LABS: Hepatitis B Surface Antigen Negative (Negative)
[2023-08-26 09:21] LABS: Hepatitis C Antibody Negative (Negative)
[2023-08-26] MEDS ORDERED: fentaNYL CITRATE 100 MCG/2 ML VL IV ONE (09:45)
[2023-08-26] MEDS ORDERED: MIDAZOLAM HCL 2MG/2ML 2ml VIAL (1mg/ml) IV ONE (09:45)
[2023-08-26] MEDS: ASPirin 81 mg TAB PO SCH (10:04)
[2023-08-26] MEDS: CARVEDILOL 3.125 MG TAB PO SCH ×2 (10:05→21:50)
[2023-08-26] MEDS ORDERED: IOHEXOL 300 MG/ML 100ML BOTTLE IJ ONE (10:16)
[2023-08-26] MEDS ORDERED: LIDOCAINE 2%HCL (LOCAL ANESTH.) INJ 10ml MDV ONE (10:16)
[2023-08-26] MEDS ORDERED: HEPARIN SODIUM (PORCINE) 5000 UNITS/ML 1ML VIAL ONE (11:04)
[2023-08-26] MEDS ORDERED: ceFAZolin 1GM/50ML 50 ML IV ONE (12:00)
[2023-08-26 12:44] LABS: Hepatitis B Surface Antibody Negative (Negative)
[2023-08-26 12:56] LABS: Hepatitis B Surface Antigen Negative (Negative)
[2023-08-26 13:17] LABS: Hepatitis B Core IgM Negative
[2023-08-26 13:18] LABS: Hepatitis C Antibody Negative (Negative)
[2023-08-26] MEDS ORDERED: LABETALOL HCL 5 MG/ML 4ML SYRINGE IV PRN (14:30)
[2023-08-26] MEDS: SODIUM FERR GLUC 62.5MG/5ML 125 MG in SODIUM CHL 0.9% 100 ML IV SCH (14:41)
[2023-08-26] MEDS ORDERED: AMIODARONE BOLUS KIT 100 ML IV ONE (15:30)
[2023-08-26] MEDS ORDERED: NIFEdipine ER 30 MG TAB PO ONE (15:30)
[2023-08-26] MEDS ORDERED: AMIODARONE 450mg/250ml AE 250 ML IV SCH (15:45)
[2023-08-26] MEDS ORDERED: CALCITRIOL 0.25 MCG CAP PO ONE (16:15)
[2023-08-26] MEDS ORDERED: EPOETIN ALFA-EPBX 10,000 UNIT/1ML VIAL SC ONE (21:00)
[2023-08-26] MEDS: ATORVASTATIN 20 MG TAB PO SCH (21:49)
[2023-08-26] MEDS: AMIODARONE 450mg/250ml AE 250 ML IV SCH (22:08)
[2023-08-27] VITALS (28 sets, daily range): BP systolic 121–150; BP diastolic 59–78; PULSE 81–94; RESP 13–26; TEMP 97.5–98.6; O2SAT 96–100
[2023-08-27] MEDS: AMIODARONE 450mg/250ml AE 250 ML IV SCH (01:34)
[2023-08-27 05:36] LABS: Basophils # (auto) 0 10 ^3/uL (0-0.2); Eosinophils # (auto) 0.2 10 ^3/uL (0-0.8); Eosinophils % (auto) 1.9 % (0.0-7.0); Hemoglobin 7.8 g/dL (13.5-17.5); Neutrophils # (auto) 7.5 10 ^3/uL (1.6-8.6); White Blood Cell 9.8 10^3/uL (4.4-10.8)
[2023-08-27 05:39] LABS: Basophils % (auto) 0.5 % (0.0-2.0); Lymphocytes # (auto) 1.2 10 ^3/uL (0.4-5.4); Lymphocytes % (auto) 12.7 % (10.0-50.0); Mean Corpuscular Hemoglobin 30.5 pg (28.0-32.0); Mean Corpuscular Hgb Conc. 33.9 g/dL (32.0-36.0); Mean Corpuscular Volume 90.2 fL (80.0-100.0); Monocytes # (auto) 0.8 10 ^3/uL (0-1.3); Monocytes % (auto) 8.6 % (0.0-12.0); Neutrophils % (auto) 76.3 % (37.0-80.0); Red Blood Cells 2.55 10^6/uL (4.5-5.90); Red Cell Distribution Width 17.7 % (11.8-14.3)
[2023-08-27 05:53] LABS: Calcium 7.9 mg/dL (8.5-10.1); Chloride 102 mmol/L (98-107); Potassium 4.5 mmol/L (3.5-5.1); Sodium 135 mmol/L (136-145)
[2023-08-27 05:54] LABS: Anion Gap 17 (5-15); Carbon Dioxide 16 mmol/L (20-30)
[2023-08-27 05:59] LABS: BUN/Creatinine Ratio 13.1 (10.0-20.0); Glucose 103 mg/dL (74-106)
[2023-08-27 06:04] LABS: Blood Urea Nitrogen 101 mg/dL (9-23)
[2023-08-27] MEDS ORDERED: SODIUM CHL 0.9% 1000 ML BAG XX ONE (07:00)
[2023-08-27] MEDS: CALCIUM ACETATE 667 MG CAP PO SCH ×3 (07:46→17:41)
[2023-08-27] MEDS: ASPirin 81 mg TAB PO SCH (07:46)
[2023-08-27] MEDS: FUROSEMIDE INJECTION 100 MG in SODIUM CHL 0.9% 100 ML IV SCH ×2 (09:05→18:47)
[2023-08-27] MEDS: AMIODARONE HCL 200 MG TAB PO SCH ×2 (09:07→21:38)
[2023-08-27] MEDS ORDERED: CALCITRIOL 0.25 MCG CAP PO SCH (10:00)
[2023-08-27] MEDS: SODIUM FERR GLUC 62.5MG/5ML 125 MG in SODIUM CHL 0.9% 100 ML IV SCH (12:19)
[2023-08-27] MEDS: NIFEdipine ER 30 MG TAB PO SCH (15:26)
[2023-08-27] MEDS: CARVEDILOL 3.125 MG TAB PO SCH ×2 (15:26→21:38)
[2023-08-27] MEDS ORDERED: EPOETIN ALFA-EPBX 10,000 UNIT/1ML VIAL SC ONE (21:00)
[2023-08-27] MEDS: ATORVASTATIN 20 MG TAB PO SCH (21:37)
[2023-08-28] VITALS (35 sets, daily range): BP systolic 109–149; BP diastolic 60–82; PULSE 82–91; RESP 11–26; TEMP 97.7–98.8; O2SAT 90–100
[2023-08-28] MEDS: FUROSEMIDE INJECTION 100 MG in SODIUM CHL 0.9% 100 ML IV SCH (04:41)
[2023-08-28 05:41] LABS: Basophils # (auto) 0 10 ^3/uL (0-0.2); Eosinophils # (auto) 0.2 10 ^3/uL (0-0.8); Eosinophils % (auto) 1.9 % (0.0-7.0); Hemoglobin 7.2 g/dL (13.5-17.5); Lymphocytes # (auto) 1.2 10 ^3/uL (0.4-5.4); Neutrophils # (auto) 6.3 10 ^3/uL (1.6-8.6); Red Cell Distribution Width 18.1 % (11.8-14.3)
[2023-08-28 05:46] LABS: Basophils % (auto) 0.3 % (0.0-2.0); Hematocrit 21.5 % (41.0-53.0); Lymphocytes % (auto) 13.9 % (10.0-50.0); Mean Corpuscular Hemoglobin 30.4 pg (28.0-32.0); Mean Corpuscular Hgb Conc. 33.6 g/dL (32.0-36.0); Mean Corpuscular Volume 90.6 fL (80.0-100.0); Monocytes % (auto) 11.2 % (0.0-12.0); Neutrophils % (auto) 72.7 % (37.0-80.0); Red Blood Cells 2.37 10^6/uL (4.5-5.90); White Blood Cell 8.6 10^3/uL (4.4-10.8)
[2023-08-28 05:59] LABS: Alanine Aminotransferase 22 U/L (7-40); Albumin 2.8 g/dL (3.2-4.8); Alkaline Phosphatase 73 U/L (46-116); Anion Gap 12 (5-15); BUN/Creatinine Ratio 11.5 (10.0-20.0); Calcium 7.2 mg/dL (8.5-10.1); Carbon Dioxide 23 mmol/L (20-30); Chloride 99 mmol/L (98-107); Glucose 159 mg/dL (74-106); Sodium 134 mmol/L (136-145)
[2023-08-28 06:00] LABS: Aspartate Aminotransferase 17 U/L (13-40)
[2023-08-28 06:01] LABS: Bilirubin, Total < 0.2 mg/dL (0.2-1.0); Total Protein 5.1 g/dL (5.7-8.2)
[2023-08-28 06:06] LABS: Blood Urea Nitrogen 68 mg/dL (9-23)
[2023-08-28] MEDS: ASPirin 81 mg TAB PO SCH (08:10)
[2023-08-28] MEDS: AMIODARONE HCL 200 MG TAB PO SCH ×2 (08:10→23:09)
[2023-08-28] MEDS: NIFEdipine ER 30 MG TAB PO SCH (08:10)
[2023-08-28] MEDS: CARVEDILOL 3.125 MG TAB PO SCH ×2 (08:13→23:10)
[2023-08-28] MEDS: CALCIUM ACETATE 667 MG CAP PO SCH (08:13)
[2023-08-28] MEDS: SEVELAMER 800 MG TAB PO SCH ×2 (11:59→18:20)
[2023-08-28] MEDS: SODIUM FERR GLUC 62.5MG/5ML 125 MG in SODIUM CHL 0.9% 100 ML IV SCH (12:00)
[2023-08-28] MEDS: ACETAMINOPHEN 325 MG TAB PO PRN (18:20)
[2023-08-28] MEDS: ATORVASTATIN 20 MG TAB PO SCH (23:09)
[2023-08-29] VITALS (21 sets, daily range): BP systolic 131–169; BP diastolic 73–87; PULSE 77–94; RESP 11–37; TEMP 97.6–98.7; O2SAT 93–100
[2023-08-29 05:37] LABS: Basophils # (auto) 0.1 10 ^3/uL (0-0.2); Basophils % (auto) 0.6 % (0.0-2.0); Eosinophils # (auto) 0.3 10 ^3/uL (0-0.8); Eosinophils % (auto) 2.6 % (0.0-7.0); Hematocrit 27.8 % (41.0-53.0); Hemoglobin 9.2 g/dL (13.5-17.5); Lymphocytes # (auto) 1.6 10 ^3/uL (0.4-5.4); Lymphocytes % (auto) 16.5 % (10.0-50.0); Mean Corpuscular Hemoglobin 30.2 pg (28.0-32.0); Mean Corpuscular Hgb Conc. 33.1 g/dL (32.0-36.0); Mean Corpuscular Volume 91.2 fL (80.0-100.0); Monocytes # (auto) 1.1 10 ^3/uL (0-1.3); Monocytes % (auto) 11.6 % (0.0-12.0); Neutrophils # (auto) 6.5 10 ^3/uL (1.6-8.6); Neutrophils % (auto) 68.7 % (37.0-80.0); Nucleated Red Blood Cells % 0.1 %; Red Blood Cells 3.05 10^6/uL (4.5-5.90); Red Cell Distribution Width 17.6 % (11.8-14.3); White Blood Cell 9.5 10^3/uL (4.4-10.8)
[2023-08-29] MEDS: SEVELAMER 800 MG TAB PO SCH ×3 (08:55→17:30)
[2023-08-29 08:59] LABS: Alanine Aminotransferase 19 U/L (7-40); Alkaline Phosphatase 73 U/L (46-116); Anion Gap 14 (5-15); Aspartate Aminotransferase 12 U/L (13-40); BUN/Creatinine Ratio 10.4 (10.0-20.0); Blood Urea Nitrogen 67 mg/dL (9-23); Calcium 7.2 mg/dL (8.5-10.1); Carbon Dioxide 21 mmol/L (20-30); Chloride 99 mmol/L (98-107); Glucose 112 mg/dL (74-106); Potassium 4.1 mmol/L (3.5-5.1); Sodium 134 mmol/L (136-145)
[2023-08-29 09:00] LABS: Bilirubin, Total < 0.2 mg/dL (0.2-1.0); Total Protein 5.3 g/dL (5.7-8.2)
[2023-08-29] MEDS: ASPirin 81 mg TAB PO SCH (09:54)
[2023-08-29] MEDS: CARVEDILOL 3.125 MG TAB PO SCH ×2 (09:55→22:43)
[2023-08-29] MEDS: AMIODARONE HCL 200 MG TAB PO SCH ×2 (09:55→22:44)
[2023-08-29] MEDS: NIFEdipine ER 30 MG TAB PO SCH (09:56)
[2023-08-29] MEDS ORDERED: ERGOCALCIFEROL 50,000 UNIT(1.25MG) CAP PO SCH (10:45)
[2023-08-29] MEDS ORDERED: SODIUM CHL 0.9% 1000 ML BAG XX ONE (10:45)
[2023-08-29] MEDS: SODIUM FERR GLUC 62.5MG/5ML 125 MG in SODIUM CHL 0.9% 100 ML IV SCH (14:15)
[2023-08-29] MEDS ORDERED: EPOETIN ALFA-EPBX 10,000 UNIT/1ML VIAL SC ONE (21:00)
[2023-08-29] MEDS: ATORVASTATIN 20 MG TAB PO SCH (22:42)
[2023-08-30] VITALS (8 sets, daily range): BP systolic 129–160; BP diastolic 75–93; PULSE 81–124; RESP 17–22; TEMP 97.9–98.3; O2SAT 96–100
[2023-08-30 07:07] LABS: Alanine Aminotransferase 11 U/L (7-40); Alkaline Phosphatase 76 U/L (46-116); Anion Gap 9 (5-15); Aspartate Aminotransferase 12 U/L (13-40); BUN/Creatinine Ratio 7.9 (10.0-20.0); Basophils # (auto) 0.1 10 ^3/uL (0-0.2); Basophils % (auto) 0.9 % (0.0-2.0); Bilirubin, Total 0.2 mg/dL (0.2-1.0); Calcium 7.8 mg/dL (8.7-10.4); Carbon Dioxide 27 mmol/L (20-30); Chloride 101 mmol/L (98-107); Eosinophils # (auto) 0.3 10 ^3/uL (0-0.8); Eosinophils % (auto) 2.7 % (0.0-7.0); Glucose 101 mg/dL (74-106); Hematocrit 28.9 % (41.0-53.0); Hemoglobin 9.4 g/dL (13.5-17.5); Lymphocytes # (auto) 1.2 10 ^3/uL (0.4-5.4); Lymphocytes % (auto) 11.2 % (10.0-50.0); Mean Corpuscular Hemoglobin 29.2 pg (28.0-32.0); Mean Corpuscular Hgb Conc. 32.7 g/dL (32.0-36.0); Mean Corpuscular Volume 89.4 fL (80.0-100.0); Monocytes # (auto) 1.1 10 ^3/uL (0-1.3); Monocytes % (auto) 10.6 % (0.0-12.0); Neutrophils # (auto) 8.1 10 ^3/uL (1.6-8.6); Neutrophils % (auto) 74.6 % (37.0-80.0); Red Blood Cells 3.23 10^6/uL (4.5-5.90); Red Cell Distribution Width 17.5 % (11.8-14.3); Sodium 137 mmol/L (136-145); Total Protein 5.4 g/dL (5.7-8.2); White Blood Cell 10.8 10^3/uL (4.4-10.8)
[2023-08-30 07:09] LABS: Blood Urea Nitrogen 37 mg/dL (9-23)
[2023-08-30] MEDS: SEVELAMER 800 MG TAB PO SCH ×3 (08:15→17:25)
[2023-08-30] MEDS: ASPirin 81 mg TAB PO SCH (10:49)
[2023-08-30] MEDS: AMIODARONE HCL 200 MG TAB PO SCH ×2 (10:49→21:35)
[2023-08-30] MEDS: NIFEdipine ER 30 MG TAB PO SCH (10:50)
[2023-08-30] MEDS: CARVEDILOL 3.125 MG TAB PO SCH ×2 (10:50→21:35)
[2023-08-30] MEDS: SODIUM FERR GLUC 62.5MG/5ML 125 MG in SODIUM CHL 0.9% 100 ML IV SCH (12:30)
[2023-08-30] MEDS: ATORVASTATIN 20 MG TAB PO SCH (21:35)
[2023-08-31] MEDS: ACETAMINOPHEN 325 MG TAB PO PRN (02:38)
[2023-08-31 05:35] VITALS: BP 121/73; PULSE 80; RESP 20; TEMP 97.9; O2SAT 100
[2023-08-31 06:58] LABS: Hematocrit 28.5 % (41.0-53.0); Hemoglobin 9.1 g/dL (13.5-17.5)
[2023-08-31] MEDS ORDERED: SODIUM CHL 0.9% 1000 ML BAG XX ONE (07:00)
[2023-08-31 07:03] LABS: Anion Gap 8 (5-15); Carbon Dioxide 26 mmol/L (20-30); Chloride 99 mmol/L (98-107); Potassium 4.2 mmol/L (3.5-5.1); Sodium 133 mmol/L (136-145)
[2023-08-31 07:04] LABS: Calcium 7.9 mg/dL (8.7-10.4)
[2023-08-31 07:09] LABS: BUN/Creatinine Ratio 7.9 (10.0-20.0); Blood Urea Nitrogen 43 mg/dL (9-23); Glucose 97 mg/dL (74-106)
[2023-08-31 07:12] LABS: Phosphorus 5.8 mg/dL (2.4-5.1)
[2023-08-31 07:23] LABS: % Iron Saturation 10.1 % (20-55)
[2023-08-31 08:00] VITALS: PULSE 115; PULSE 69; RESP 18; O2SAT 100
[2023-08-31 09:00] VITALS: BP 137/87; PULSE 68; RESP 17; TEMP 97.6; O2SAT 99
[2023-08-31 13:00] VITALS: BP 99/78; PULSE 81; RESP 17; TEMP 97.6; O2SAT 100
[2023-08-31] MEDS ORDERED: ASPI-463 PO (13:05)
[2023-08-31] MEDS ORDERED: CHOLCAP11 PO (13:05)
[2023-08-31] MEDS ORDERED: SEVE800T PO (13:05)
[2023-08-31] MEDS ORDERED: NIFE1TAB30 PO (13:05)
[2023-08-31] MEDS ORDERED: FERR-7 PO (13:05)
[2023-08-31] MEDS ORDERED: AMIO200T33 PO (13:05)
[2023-08-31] MEDS ORDERED: ATO40T PO (13:05)
[2023-08-31] MEDS ORDERED: CARV6.25 PO (13:05)
[2023-08-31] MEDS: ASPirin 81 mg TAB PO SCH (15:35)
[2023-08-31] MEDS: NIFEdipine ER 30 MG TAB PO SCH (15:36)
[2023-08-31] MEDS: AMIODARONE HCL 200 MG TAB PO SCH (15:36)
[2023-08-31] MEDS: SEVELAMER 800 MG TAB PO SCH (15:36)
[2023-08-31] MEDS: CARVEDILOL 3.125 MG TAB PO SCH (15:37)
[2023-08-31 17:06] VITALS: BP 106/73; PULSE 61; RESP 18; TEMP 97.8; O2SAT 95
[2023-08-31 17:33] VITALS: BP 106/73; PULSE 95; RESP 18; TEMP 97.8; O2SAT 95
== END 2023-08-31 20:19 | disposition home or self-care (01) | DRG 194 ==
LOC: ER 14:42 → EDBD 14:42 → EDUNIT# 22:52 → TELE 22:52 → DOU IN ICU 08-25 16:50 → TELE-WESTW 08-30 00:39
PROVIDERS: ADMIT Nurse Practitioner; ATTEND Family Medicine
PROC: 30233N1 Transfusion of Nonautologous Red Blood Cells into Peripheral Vein, Percutaneous Approach (ICD-10-PCS; principal; 2023-08-25)
PROC: 5A1D70Z Performance of Urinary Filtration, Intermittent, Less than 6 Hours Per Day (ICD-10-PCS; 2023-08-27)
PROC: 5A1D70Z Performance of Urinary Filtration, Intermittent, Less than 6 Hours Per Day (ICD-10-PCS; 2023-08-29)
PROC: 5A1D70Z Performance of Urinary Filtration, Intermittent, Less than 6 Hours Per Day (ICD-10-PCS; 2023-08-31)
DX: I13.2 Hypertensive heart and chronic kidney disease with heart failure and with stage 5 chronic kidney disease, or end stage renal disease (principal); I21.A1 Myocardial infarction type 2; E87.20 Acidosis, unspecified; N17.9 Acute kidney failure, unspecified; N18.6 End stage renal disease; E83.39 Other disorders of phosphorus metabolism; D63.8 Anemia in other chronic diseases classified elsewhere; R65.10 Systemic inflammatory response syndrome (SIRS) of non-infectious origin without acute organ dysfunction; E11.22 Type 2 diabetes mellitus with diabetic chronic kidney disease; I16.1 Hypertensive emergency; I50.9 Heart failure, unspecified; I48.92 Unspecified atrial flutter; I48.0 Paroxysmal atrial fibrillation; D50.9 Iron deficiency anemia, unspecified; E11.51 Type 2 diabetes mellitus with diabetic peripheral angiopathy without gangrene; E87.5 Hyperkalemia; Z60.2 Problems related to living alone; E87.8 Other disorders of electrolyte and fluid balance, not elsewhere classified; Z20.822 Contact with and (suspected) exposure to COVID-19; F12.10 Cannabis abuse, uncomplicated; F17.210 Nicotine dependence, cigarettes, uncomplicated; Z71.6 Tobacco abuse counseling; Z89.511 Acquired absence of right leg below knee; Z91.148 Patient's other noncompliance with medication regimen for other reason; Z91.158 Patient's noncompliance with renal dialysis for other reason; Z91.199 Patient's noncompliance with other medical treatment and regimen due to unspecified reason; Z99.2 Dependence on renal dialysis; Z71.51 Drug abuse counseling and surveillance of drug abuser; I50.43 Acute on chronic combined systolic (congestive) and diastolic (congestive) heart failure
CPT/HCPCS: 36415; 36430; 36600; 71045; 76000; 76775; 78582; 80048; 80053; 80061; 80307; 81001; 82270; 82306; 82570; 82728; 82746; 82805; 83036; 83540; 83550; 83605; 83615; 83690; 83735; 83880; 83970; 84100; 84156; 84300; 84443; 84484; 85014; 85018; 85025; 85045; 85379; 85610; 85730; 86705; 86706; 86803; 86850; 86900; 86901; 86920; 87081; 87340; 87426; 87804; 90935; 93005; 93306; 93925; 93970; 97110; 97116; 97163; 97530; 99291; G0378; J0690; J1642; J2001; J2250; J3490

== ENCOUNTER → 2023-09-21 20:19 | Emergency (ER) | payer MEDICAID ==
[~2023-09-21 20:19] MED LIST changes: +AMIO200T33 PO; +ASPI-463 PO; +ATO40T PO; +CARV6.25 PO; +CHOLCAP11 PO; +FERR-7 PO; +NIFE1TAB30 PO; +SEVE800T PO
== END | disposition home or self-care (01) ==
LOC: ER 20:19
DX: R22.42 Localized swelling, mass and lump, left lower limb (principal); Z53.21 Procedure and treatment not carried out due to patient leaving prior to being seen by health care provider

== ENCOUNTER 2023-09-22 11:20 | Inpatient (IN) | payer MEDICAID ==
[~2023-09-22] VITALS: Ht 167.6 cm; Wt 79.2 kg
[2023-09-22 14:28] LABS: Basophils # (auto) 0.1 10 ^3/uL (0-0.2); Hematocrit 26.5 % (41.0-53.0); Hemoglobin 8.2 g/dL (13.5-17.5); Monocytes # (auto) 1.2 10 ^3/uL (0-1.3); Neutrophils # (auto) 9.3 10 ^3/uL (1.6-8.6)
[2023-09-22 14:31] LABS: Basophils % (auto) 0.5 % (0.0-2.0); Eosinophils # (auto) 0.1 10 ^3/uL (0-0.8); Eosinophils % (auto) 1.2 % (0.0-7.0); Mean Corpuscular Hemoglobin 28.4 pg (28.0-32.0); Mean Corpuscular Hgb Conc. 30.9 g/dL (32.0-36.0); Mean Corpuscular Volume 91.9 fL (80.0-100.0); Monocytes % (auto) 9.1 % (0.0-12.0); Neutrophils % (auto) 73.2 % (37.0-80.0); Red Blood Cells 2.88 10^6/uL (4.5-5.90); White Blood Cell 12.7 10^3/uL (4.4-10.8)
[2023-09-22 14:35] LABS: Alanine Aminotransferase 18 U/L (7-40); Albumin 3.3 g/dL (3.2-4.8); Alkaline Phosphatase 154 U/L (46-116); Anion Gap 9 (5-15); Aspartate Aminotransferase 13 U/L (13-40); BUN/Creatinine Ratio 7.7 (10.0-20.0); Bilirubin, Total 0.2 mg/dL (0.2-1.0); Blood Urea Nitrogen 48 mg/dL (9-23); Calcium 8.3 mg/dL (8.7-10.4); Carbon Dioxide 26 mmol/L (20-30); Chloride 102 mmol/L (98-107); Glucose 105 mg/dL (74-106); Lipase 38 U/L (12-53); Potassium 4.2 mmol/L (3.5-5.1); Sodium 137 mmol/L (136-145); Total Protein 6.6 g/dL (5.7-8.2)
[2023-09-22 14:39] LABS: INR 1.26 (0.9-1.15); Prothrombin Time 13.3 sec (9.3-11.8)
[2023-09-22] MEDS ORDERED: FUROSEMIDE 40 MG/4 ML VIAL IV ONE (17:00)
[2023-09-22] MEDS ORDERED: ASPirin-EC 325mg tab PO ONE (17:00)
[2023-09-22] MEDS ORDERED: ALBUTEROL SULF 2.5 MG/0.5ML(0.5%) NEB SOLN NEB PRN (17:30)
[2023-09-22 18:00] VITALS: PULSE 86; RESP 24; O2SAT 97
[2023-09-22] MEDS: hydrALAZINE HCL 25 MG TAB PO SCH (18:00)
[2023-09-22 18:46] LABS: Urine Bacteria NONE SEEN /hpf (None Seen); Urine Blood TRACE /uL (Negative); Urine Clarity Clear (Clear); Urine Color Colorless (Yellow); Urine Protein, UAD 3+ (Negative); Urine Urobilinogen Normal (Negative); Urine WBC 3 /hpf (0 - 3); Urine pH 7.5 (5.0-8.0)
[2023-09-22] MEDS: ACETAMINOPHEN 325 MG TAB PO PRN (18:56)
[2023-09-22 19:53] VITALS: BP 106/61; PULSE 86; RESP 24; TEMP 98.4; O2SAT 97
[2023-09-22] MEDS ORDERED: HEPARIN SODIUM (PORCINE) 5000 UNITS/ML 1ML VIAL ONE ×3 (22:29→22:30)
[2023-09-22] MEDS: FERROUS SULFATE 325mg EC TAB PO SCH (22:42)
[2023-09-22] MEDS: AMIODARONE HCL 200 MG TAB PO SCH (22:46)
[2023-09-22] MEDS: CARVEDILOL 3.125 MG TAB PO SCH (22:47)
[2023-09-22] MEDS: ATORVASTATIN 20 MG TAB PO SCH (22:48)
[2023-09-22] MEDS: METOPROLOL TARTRATE 50 MG TAB PO SCH (22:49)
[2023-09-22] MEDS: SEVELAMER 800 MG TAB PO SCH (22:50)
[2023-09-22] MEDS: HEPARIN SODIUM (PORCINE) 5000 UNITS/ML 1ML VIAL SC SCH (22:57)
[2023-09-23] VITALS (13 sets, daily range): BP systolic 123–162; BP diastolic 63–79; PULSE 75–87; RESP 13–22; TEMP 97.5–98.4; O2SAT 91–98
[2023-09-23] MEDS: hydrALAZINE HCL 25 MG TAB PO SCH ×4 (00:19→19:37)
[2023-09-23] MEDS: ACETAMINOPHEN 325 MG TAB PO PRN (01:58)
[2023-09-23 05:07] LABS: Alanine Aminotransferase 16 U/L (7-40); Albumin 3.1 g/dL (3.2-4.8); Alkaline Phosphatase 139 U/L (46-116); Anion Gap 10 (5-15); Aspartate Aminotransferase 12 U/L (13-40); BUN/Creatinine Ratio 8.1 (10.0-20.0); Bilirubin, Total 0.2 mg/dL (0.2-1.0); Blood Urea Nitrogen 55 mg/dL (9-23); Calcium 8.2 mg/dL (8.7-10.4); Carbon Dioxide 24 mmol/L (20-30); Chloride 102 mmol/L (98-107); Glucose 98 mg/dL (74-106); Potassium 4.4 mmol/L (3.5-5.1); Sodium 136 mmol/L (136-145)
[2023-09-23 05:19] LABS: Basophils # (auto) 0.1 10 ^3/uL (0-0.2); Eosinophils # (auto) 0.1 10 ^3/uL (0-0.8); Neutrophils # (auto) 9.1 10 ^3/uL (1.6-8.6)
[2023-09-23 05:21] LABS: Basophils % (auto) 0.8 % (0.0-2.0); Eosinophils % (auto) 0.9 % (0.0-7.0); Hematocrit 23.9 % (41.0-53.0); Hemoglobin 7.6 g/dL (13.5-17.5); Lymphocytes # (auto) 1.7 10 ^3/uL (0.4-5.4); Lymphocytes % (auto) 14.1 % (10.0-50.0); Mean Corpuscular Hemoglobin 29.4 pg (28.0-32.0); Mean Corpuscular Hgb Conc. 31.9 g/dL (32.0-36.0); Monocytes % (auto) 8.4 % (0.0-12.0); Neutrophils % (auto) 75.8 % (37.0-80.0); Red Cell Distribution Width 17.9 % (11.8-14.3)
[2023-09-23] MEDS: SEVELAMER 800 MG TAB PO SCH ×3 (05:33→22:43)
[2023-09-23] MEDS: METOPROLOL TARTRATE 50 MG TAB PO SCH ×2 (10:00→22:47)
[2023-09-23] MEDS ORDERED: FUROSEMIDE 40 MG/4 ML VIAL IV SCH (10:00)
[2023-09-23] MEDS: amLODIPine BESYLATE 5 MG TAB PO SCH (10:00)
[2023-09-23] MEDS: CARVEDILOL 3.125 MG TAB PO SCH ×2 (10:00→22:44)
[2023-09-23] MEDS: HEPARIN SODIUM (PORCINE) 5000 UNITS/ML 1ML VIAL SC SCH (10:00)
[2023-09-23] MEDS: ASPirin-EC 81 mg tab PO SCH (10:03)
[2023-09-23] MEDS: PANTOPRAZOLE 40 MG TAB PO SCH (10:03)
[2023-09-23] MEDS: FERROUS SULFATE 325mg EC TAB PO SCH ×2 (10:03→22:43)
[2023-09-23] MEDS: AMIODARONE HCL 200 MG TAB PO SCH ×2 (10:03→22:43)
[2023-09-23] MEDS: CLOPIDOGREL BISULFATE 75 MG TAB PO SCH (10:03)
[2023-09-23] MEDS: CHOLECALCIFEROL (VITD3) 1,000UNIT=25mCg TAB PO SCH (10:04)
[2023-09-23] MEDS ORDERED: BUMETANIDE 2.5mg/10ml (0.25 mg/ml) INJ IV ONE (12:00)
[2023-09-23] MEDS ORDERED: HEPARIN DRIP/D5W 100UNITS/ML 250 ML IV SCH ×2 (12:00→22:00)
[2023-09-23] MEDS ORDERED: HEPARIN SODIUM (PORCINE) 5000 UNITS/ML 1ML VIAL IV ONE (12:00)
[2023-09-23 13:18] LABS: Basophils # (auto) 0.1 10 ^3/uL (0-0.2); Basophils % (auto) 0.6 % (0.0-2.0); Eosinophils # (auto) 0.1 10 ^3/uL (0-0.8); Eosinophils % (auto) 1.1 % (0.0-7.0); Hemoglobin 8.2 g/dL (13.5-17.5); Lymphocytes # (auto) 1.7 10 ^3/uL (0.4-5.4); Lymphocytes % (auto) 12.9 % (10.0-50.0); Mean Corpuscular Hemoglobin 28.6 pg (28.0-32.0); Mean Corpuscular Hgb Conc. 31.4 g/dL (32.0-36.0); Monocytes # (auto) 1.1 10 ^3/uL (0-1.3); Monocytes % (auto) 8.2 % (0.0-12.0); Neutrophils # (auto) 10.4 10 ^3/uL (1.6-8.6); Neutrophils % (auto) 77.2 % (37.0-80.0); Red Blood Cells 2.85 10^6/uL (4.5-5.90); Red Cell Distribution Width 18.2 % (11.8-14.3); White Blood Cell 13.4 10^3/uL (4.4-10.8)
[2023-09-23] MEDS: MORPHINE SULFATE INJ 2 MG/ml SYRG IV PRN ×2 (13:19→16:41)
[2023-09-23 13:32] LABS: Creatinine, Urine 30.09 mg/dL (30.0-125.0)
[2023-09-23 13:39] LABS: INR 1.27 (0.9-1.15); Partial Thromboplastin Time 33.1 SEC (24.5-34.5); Prothrombin Time 13.1 sec (9.3-11.8)
[2023-09-23] MEDS: NIFEdipine ER 30 MG TAB PO SCH (13:53)
[2023-09-23] MEDS ORDERED: IODIXANOL 320MG/ML 100ML BTL IV ONE (18:04)
[2023-09-23] MEDS ORDERED: LIDOCAINE 2%HCL (LOCAL ANESTH.) INJ 20ML MDV ONE (18:04)
[2023-09-23] MEDS ORDERED: IOHEXOL 350 MG/ML 100ML IJ ONE (18:08)
[2023-09-23 21:03] LABS: INR 1.26 (0.9-1.15)
[2023-09-23 21:05] LABS: Partial Thromboplastin Time 116.1 SEC (24.5-34.5)
[2023-09-23] MEDS: PIPERACILLIN-TAZOB 3.375GM 100 ML IV SCH (22:42)
[2023-09-23] MEDS: ATORVASTATIN 20 MG TAB PO SCH (22:45)
[2023-09-24] VITALS (25 sets, daily range): BP systolic 93–142; BP diastolic 50–68; PULSE 66–71; RESP 12–24; TEMP 97.8–98.2; O2SAT 85–99
[2023-09-24] MEDS: hydrALAZINE HCL 25 MG TAB PO SCH ×4 (00:45→18:19)
[2023-09-24 05:48] LABS: INR 1.28 (0.9-1.15); Prothrombin Time 13.2 sec (9.3-11.8)
[2023-09-24 05:51] LABS: Partial Thromboplastin Time 73.6 SEC (24.5-34.5)
[2023-09-24] MEDS: SEVELAMER 800 MG TAB PO SCH ×3 (06:00→22:01)
[2023-09-24 06:03] LABS: Chloride 100 mmol/L (98-107); Potassium 4.9 mmol/L (3.5-5.1); Sodium 134 mmol/L (136-145)
[2023-09-24 06:04] LABS: Anion Gap 13 (5-15); Calcium 8.7 mg/dL (8.5-10.1); Carbon Dioxide 21 mmol/L (20-30)
[2023-09-24 06:09] LABS: BUN/Creatinine Ratio 7.9 (10.0-20.0); Blood Urea Nitrogen 58 mg/dL (9-23); Glucose 87 mg/dL (74-106)
[2023-09-24] MEDS ORDERED: SODIUM CHL 0.9% 1000 ML BAG XX ONE (07:00)
[2023-09-24] MEDS: amLODIPine BESYLATE 5 MG TAB PO SCH (10:00)
[2023-09-24] MEDS: MORPHINE SULFATE INJ 2 MG/ml SYRG IV PRN ×2 (10:13→22:51)
[2023-09-24] MEDS: FERROUS SULFATE 325mg EC TAB PO SCH ×2 (10:22→22:01)
[2023-09-24] MEDS: NIFEdipine ER 30 MG TAB PO SCH (10:22)
[2023-09-24] MEDS: ASPirin-EC 81 mg tab PO SCH (10:22)
[2023-09-24] MEDS: PIPERACILLIN-TAZOB 3.375GM 100 ML IV SCH ×2 (10:22→21:59)
[2023-09-24] MEDS: FUROSEMIDE 100 MG/10ML VIAL IV SCH (10:22)
[2023-09-24] MEDS: CARVEDILOL 3.125 MG TAB PO SCH ×2 (10:23→22:02)
[2023-09-24] MEDS: PANTOPRAZOLE 40 MG TAB PO SCH (10:23)
[2023-09-24] MEDS: AMIODARONE HCL 200 MG TAB PO SCH ×2 (10:23→22:01)
[2023-09-24] MEDS: METOPROLOL TARTRATE 50 MG TAB PO SCH ×2 (10:24→22:01)
[2023-09-24] MEDS: CLOPIDOGREL BISULFATE 75 MG TAB PO SCH (10:25)
[2023-09-24] MEDS ORDERED: fentaNYL CITRATE 100 MCG/2 ML VL ONE (12:46)
[2023-09-24] MEDS ORDERED: ANGIOMAX 250 MG VIAL IV ONE (12:46)
[2023-09-24] MEDS ORDERED: SODIUM CHL 0.9% 50 ML ONE (12:47)
[2023-09-24] MEDS ORDERED: MIDAZOLAM HCL 2MG/2ML 2ml VIAL (1mg/ml) ONE (12:47)
[2023-09-24] MEDS ORDERED: LIDOCAINE 2%HCL (LOCAL ANESTH.) INJ 20ML MDV ONE (12:48)
[2023-09-24] MEDS ORDERED: IODIXANOL 320MG/ML 100ML BTL IV ONE ×2 (13:09→15:45)
[2023-09-24 13:25] LABS: INR 1.31 (0.9-1.15); Prothrombin Time 13.5 sec (9.3-11.8)
[2023-09-24 13:48] LABS: Partial Thromboplastin Time 81.4 SEC (24.5-34.5)
[2023-09-24] MEDS ORDERED: HEPARIN DRIP/D5W 100UNITS/ML 250 ML IV SCH (14:45)
[2023-09-24] MEDS: CHOLECALCIFEROL (VITD3) 1,000UNIT=25mCg TAB PO SCH (18:26)
[2023-09-24] MEDS ORDERED: EPOETIN ALFA-EPBX 10,000 UNIT/1ML VIAL SC ONE (21:00)
[2023-09-24] MEDS: ATORVASTATIN 20 MG TAB PO SCH (22:01)
[2023-09-24] MEDS: HYDROcodone-ACET 5/325MG TAB PO PRN (22:11)
[2023-09-25] VITALS (30 sets, daily range): BP systolic 97–152; BP diastolic 50–77; PULSE 64–83; RESP 9–27; TEMP 97.9–98.7; O2SAT 87–99
[2023-09-25 05:36] LABS: Basophils # (auto) 0.1 10 ^3/uL (0-0.2); Eosinophils # (auto) 0.1 10 ^3/uL (0-0.8); Hemoglobin 7.5 g/dL (13.5-17.5); Lymphocytes # (auto) 1.1 10 ^3/uL (0.4-5.4); Monocytes # (auto) 0.9 10 ^3/uL (0-1.3)
[2023-09-25] MEDS: SEVELAMER 800 MG TAB PO SCH ×3 (05:36→22:16)
[2023-09-25] MEDS: hydrALAZINE HCL 25 MG TAB PO SCH ×4 (05:36→17:54)
[2023-09-25 05:38] LABS: Basophils % (auto) 1.1 % (0.0-2.0); Eosinophils % (auto) 0.7 % (0.0-7.0); Hematocrit 23.5 % (41.0-53.0); Lymphocytes % (auto) 9.5 % (10.0-50.0); Mean Corpuscular Hemoglobin 28.9 pg (28.0-32.0); Mean Corpuscular Hgb Conc. 31.9 g/dL (32.0-36.0); Mean Corpuscular Volume 90.4 fL (80.0-100.0); Monocytes % (auto) 7.6 % (0.0-12.0); Neutrophils # (auto) 9.5 10 ^3/uL (1.6-8.6); Neutrophils % (auto) 81.1 % (37.0-80.0); Red Cell Distribution Width 17.6 % (11.8-14.3); White Blood Cell 11.7 10^3/uL (4.4-10.8)
[2023-09-25 05:44] LABS: Calcium 7.5 mg/dL (8.7-10.4); Chloride 101 mmol/L (98-107); Sodium 138 mmol/L (136-145)
[2023-09-25 05:45] LABS: Anion Gap 9 (5-15); Carbon Dioxide 28 mmol/L (20-30)
[2023-09-25 05:50] LABS: BUN/Creatinine Ratio 7.4 (10.0-20.0); Glucose 118 mg/dL (74-106)
[2023-09-25 05:54] LABS: Blood Urea Nitrogen 39 mg/dL (9-23)
[2023-09-25] MEDS ORDERED: SODIUM CHL 0.9% 1000 ML BAG XX ONE (07:00)
[2023-09-25] MEDS: PIPERACILLIN-TAZOB 3.375GM 100 ML IV SCH ×2 (07:48→22:14)
[2023-09-25] MEDS: FUROSEMIDE 100 MG/10ML VIAL IV SCH (07:48)
[2023-09-25] MEDS: FERROUS SULFATE 325mg EC TAB PO SCH ×2 (07:48→22:15)
[2023-09-25] MEDS: PANTOPRAZOLE 40 MG TAB PO SCH (07:48)
[2023-09-25 09:13] LABS: Complement C3 124 mg/dL (82-167); Immunoglobulin A 436 mg/dL (90-386); Immunoglobulin G, Serum 1505 mg/dL (603-1613); Immunoglobulin M 64 mg/dL (20-172)
[2023-09-25] MEDS: CHOLECALCIFEROL (VITD3) 1,000UNIT=25mCg TAB PO SCH (10:00)
[2023-09-25] MEDS: amLODIPine BESYLATE 5 MG TAB PO SCH (10:00)
[2023-09-25 11:37] LABS: Anti-Nuclear Antibody Direct Negative (Negative)
[2023-09-25 12:11] LABS: Kappa Lite Chain Free Serum 314.1 mg/L (3.3-19.4)
[2023-09-25] MEDS: CLOPIDOGREL BISULFATE 75 MG TAB PO SCH (14:38)
[2023-09-25] MEDS: ASPirin-EC 81 mg tab PO SCH (14:38)
[2023-09-25] MEDS: NIFEdipine ER 30 MG TAB PO SCH (14:45)
[2023-09-25] MEDS: AMIODARONE HCL 200 MG TAB PO SCH ×2 (14:45→22:15)
[2023-09-25] MEDS: METOPROLOL TARTRATE 50 MG TAB PO SCH ×2 (14:46→23:13)
[2023-09-25] MEDS: CARVEDILOL 3.125 MG TAB PO SCH ×2 (14:47→22:16)
[2023-09-25] MEDS: MORPHINE SULFATE INJ 2 MG/ml SYRG IV PRN ×3 (14:49→22:17)
[2023-09-25] MEDS ORDERED: EPOETIN ALFA-EPBX 4,000 UNIT/ML VIAL SC ONE (21:00)
[2023-09-25] MEDS: ATORVASTATIN 20 MG TAB PO SCH (22:15)
[2023-09-26] VITALS (7 sets, daily range): BP systolic 108–131; BP diastolic 55–66; PULSE 70–73; RESP 15–20; TEMP 98–98.4; O2SAT 90–97
[2023-09-26] MEDS: hydrALAZINE HCL 25 MG TAB PO SCH ×4 (00:29→18:07)
[2023-09-26] MEDS: SEVELAMER 800 MG TAB PO SCH ×3 (05:20→22:20)
[2023-09-26] MEDS: HYDROcodone-ACET 5/325MG TAB PO PRN ×2 (05:21→18:12)
[2023-09-26] MEDS: PIPERACILLIN-TAZOB 3.375GM 100 ML IV SCH ×2 (10:06→22:21)
[2023-09-26] MEDS: FUROSEMIDE 100 MG/10ML VIAL IV SCH (10:14)
[2023-09-26] MEDS: PANTOPRAZOLE 40 MG TAB PO SCH (10:18)
[2023-09-26] MEDS: ASPirin-EC 81 mg tab PO SCH (10:19)
[2023-09-26] MEDS: AMIODARONE HCL 200 MG TAB PO SCH ×2 (10:19→22:20)
[2023-09-26] MEDS: amLODIPine BESYLATE 5 MG TAB PO SCH (10:19)
[2023-09-26] MEDS: CHOLECALCIFEROL (VITD3) 1,000UNIT=25mCg TAB PO SCH (10:20)
[2023-09-26] MEDS: CARVEDILOL 3.125 MG TAB PO SCH ×2 (10:20→22:21)
[2023-09-26] MEDS: CLOPIDOGREL BISULFATE 75 MG TAB PO SCH (10:20)
[2023-09-26] MEDS: FERROUS SULFATE 325mg EC TAB PO SCH ×2 (10:21→22:21)
[2023-09-26] MEDS: NIFEdipine ER 30 MG TAB PO SCH (10:21)
[2023-09-26] MEDS: METOPROLOL TARTRATE 50 MG TAB PO SCH ×2 (10:22→22:21)
[2023-09-26] MEDS: MORPHINE SULFATE INJ 2 MG/ml SYRG IV PRN ×2 (15:58→23:37)
[2023-09-26] MEDS: ATORVASTATIN 20 MG TAB PO SCH (22:20)
[2023-09-27] MEDS: hydrALAZINE HCL 25 MG TAB PO SCH ×4 (00:27→18:00)
[2023-09-27 05:25] VITALS: BP 118/56; PULSE 72; RESP 20; TEMP 98.4; O2SAT 95
[2023-09-27] MEDS: SEVELAMER 800 MG TAB PO SCH ×3 (06:29→22:29)
[2023-09-27] MEDS: HYDROcodone-ACET 5/325MG TAB PO PRN ×3 (06:54→20:15)
[2023-09-27 08:00] VITALS: PULSE 73
[2023-09-27 09:01] VITALS: BP 125/60; PULSE 73; RESP 18; TEMP 98.1; O2SAT 96
[2023-09-27 09:32] LABS: Hepatitis B Surface Antigen Negative (Negative)
[2023-09-27 09:53] LABS: Hepatitis A Ab IgM Negative
[2023-09-27 09:54] LABS: Hepatitis B Core IgM Negative; Hepatitis C Antibody Negative (Negative)
[2023-09-27] MEDS: CHOLECALCIFEROL (VITD3) 1,000UNIT=25mCg TAB PO SCH (09:54)
[2023-09-27] MEDS: CLOPIDOGREL BISULFATE 75 MG TAB PO SCH (09:54)
[2023-09-27] MEDS: FERROUS SULFATE 325mg EC TAB PO SCH ×2 (09:54→22:29)
[2023-09-27] MEDS: PANTOPRAZOLE 40 MG TAB PO SCH (09:54)
[2023-09-27] MEDS: ASPirin-EC 81 mg tab PO SCH (09:54)
[2023-09-27] MEDS: PIPERACILLIN-TAZOB 3.375GM 100 ML IV SCH (09:54)
[2023-09-27] MEDS: AMIODARONE HCL 200 MG TAB PO SCH ×2 (09:54→22:30)
[2023-09-27] MEDS: CARVEDILOL 3.125 MG TAB PO SCH ×2 (10:00→22:31)
[2023-09-27] MEDS: METOPROLOL TARTRATE 50 MG TAB PO SCH ×2 (10:00→22:30)
[2023-09-27] MEDS: FUROSEMIDE 100 MG/10ML VIAL IV SCH (10:00)
[2023-09-27] MEDS: amLODIPine BESYLATE 5 MG TAB PO SCH (10:00)
[2023-09-27] MEDS: NIFEdipine ER 30 MG TAB PO SCH (10:00)
[2023-09-27 12:53] VITALS: BP 128/63; PULSE 73; RESP 18; TEMP 98.5; O2SAT 98
[2023-09-27] MEDS ORDERED: IOHEXOL 350 MG/ML 100ML IJ ONE (13:12)
[2023-09-27] MEDS ORDERED: SODIUM CHL 0.9% 1000 ML BAG XX ONE (15:45)
[2023-09-27 20:00] VITALS: PULSE 81
[2023-09-27] MEDS ORDERED: EPOETIN ALFA-EPBX 10,000 UNIT/1ML VIAL SC ONE (21:00)
[2023-09-27 22:00] VITALS: BP 145/65; PULSE 81; RESP 20; TEMP 98.2; O2SAT 94
[2023-09-27] MEDS: ATORVASTATIN 20 MG TAB PO SCH (22:29)
[2023-09-27] MEDS: PIPERACILLIN-TAZOB 2.25GM 50 ML IV SCH (22:29)
[2023-09-28] MEDS: hydrALAZINE HCL 25 MG TAB PO SCH ×5 (02:19→23:20)
[2023-09-28] MEDS: HYDROcodone-ACET 5/325MG TAB PO PRN (02:32)
[2023-09-28 05:00] VITALS: BP 148/62; PULSE 73; RESP 20; TEMP 98.3; O2SAT 95
[2023-09-28] MEDS: SEVELAMER 800 MG TAB PO SCH ×3 (05:32→21:12)
[2023-09-28] MEDS: MORPHINE SULFATE INJ 2 MG/ml SYRG IV PRN ×3 (05:33→21:17)
[2023-09-28 07:07] LABS: Albumin 2.1 g/dL (2.9-4.4); Alpha-1-Globulin 0.4 g/dL (0.0-0.4); Gamma Globulin 1.5 g/dL (0.4-1.8); Globulin Total 3.9 g/dL (2.2-3.9)
[2023-09-28 08:00] VITALS: PULSE 74
[2023-09-28] MEDS: PIPERACILLIN-TAZOB 2.25GM 50 ML IV SCH ×2 (10:07→21:12)
[2023-09-28] MEDS: CHOLECALCIFEROL (VITD3) 1,000UNIT=25mCg TAB PO SCH (10:08)
[2023-09-28] MEDS: FUROSEMIDE 100 MG/10ML VIAL IV SCH (10:09)
[2023-09-28] MEDS: amLODIPine BESYLATE 5 MG TAB PO SCH (10:09)
[2023-09-28] MEDS: ASPirin-EC 81 mg tab PO SCH (10:09)
[2023-09-28] MEDS: METOPROLOL TARTRATE 50 MG TAB PO SCH ×2 (10:09→21:13)
[2023-09-28] MEDS: FERROUS SULFATE 325mg EC TAB PO SCH ×2 (10:10→21:14)
[2023-09-28] MEDS: CARVEDILOL 3.125 MG TAB PO SCH ×2 (10:10→21:14)
[2023-09-28] MEDS: CLOPIDOGREL BISULFATE 75 MG TAB PO SCH (10:11)
[2023-09-28] MEDS: NIFEdipine ER 30 MG TAB PO SCH (10:11)
[2023-09-28] MEDS: PANTOPRAZOLE 40 MG TAB PO SCH (10:11)
[2023-09-28] MEDS: AMIODARONE HCL 200 MG TAB PO SCH ×2 (10:11→23:19)
[2023-09-28 12:22] LABS: Basophils # (auto) 0.1 10 ^3/uL (0-0.2); Basophils % (auto) 0.6 % (0.0-2.0); Nucleated Red Blood Cells % 0.1 %
[2023-09-28 12:26] LABS: Eosinophils # (auto) 0.1 10 ^3/uL (0-0.8); Eosinophils % (auto) 0.7 % (0.0-7.0); Hematocrit 23.7 % (41.0-53.0); Hemoglobin 7.5 g/dL (13.5-17.5); Lymphocytes # (auto) 1.4 10 ^3/uL (0.4-5.4); Lymphocytes % (auto) 9.2 % (10.0-50.0); Mean Corpuscular Hemoglobin 28.7 pg (28.0-32.0); Mean Corpuscular Hgb Conc. 31.5 g/dL (32.0-36.0); Monocytes # (auto) 1.2 10 ^3/uL (0-1.3); Monocytes % (auto) 7.9 % (0.0-12.0); Neutrophils # (auto) 12.2 10 ^3/uL (1.6-8.6); Neutrophils % (auto) 81.6 % (37.0-80.0); Red Cell Distribution Width 17.7 % (11.8-14.3); White Blood Cell 14.9 10^3/uL (4.4-10.8)
[2023-09-28 12:34] LABS: Chloride 97 mmol/L (98-107); Potassium 3.8 mmol/L (3.5-5.1); Sodium 134 mmol/L (136-145)
[2023-09-28 12:35] LABS: Anion Gap 10 (5-15); Calcium 8.3 mg/dL (8.7-10.4); Carbon Dioxide 27 mmol/L (20-30)
[2023-09-28 12:39] LABS: INR 1.36 (0.9-1.15); Partial Thromboplastin Time 32.2 SEC (24.5-34.5)
[2023-09-28 12:40] LABS: BUN/Creatinine Ratio 5.8 (10.0-20.0); Blood Urea Nitrogen 24 mg/dL (9-23); Glucose 113 mg/dL (74-106)
[2023-09-28 13:30] VITALS: BP 150/66; PULSE 76; RESP 18; TEMP 98; O2SAT 94
[2023-09-28 16:34] VITALS: BP 142/77; PULSE 74; RESP 18; TEMP 97.6; O2SAT 95
[2023-09-28 20:00] VITALS: PULSE 73
[2023-09-28] MEDS: ATORVASTATIN 20 MG TAB PO SCH (21:13)
[2023-09-28 22:00] VITALS: BP 149/44; PULSE 74; RESP 20; TEMP 98.5; O2SAT 20
[2023-09-29] VITALS (12 sets, daily range): BP systolic 125–155; BP diastolic 59–82; PULSE 73–88; RESP 12–20; TEMP 97.6–99.8; O2SAT 94–99
[2023-09-29 05:41] LABS: Basophils # (auto) 0.1 10 ^3/uL (0-0.2); Basophils % (auto) 0.5 % (0.0-2.0); Eosinophils # (auto) 0.1 10 ^3/uL (0-0.8); Eosinophils % (auto) 0.9 % (0.0-7.0); Hematocrit 23.1 % (41.0-53.0); Hemoglobin 7.3 g/dL (13.5-17.5); Lymphocytes # (auto) 1.5 10 ^3/uL (0.4-5.4); Lymphocytes % (auto) 10.4 % (10.0-50.0); Mean Corpuscular Hemoglobin 28.8 pg (28.0-32.0); Mean Corpuscular Hgb Conc. 31.6 g/dL (32.0-36.0); Mean Corpuscular Volume 91.4 fL (80.0-100.0); Monocytes # (auto) 1.2 10 ^3/uL (0-1.3); Monocytes % (auto) 8.6 % (0.0-12.0); Neutrophils # (auto) 11.5 10 ^3/uL (1.6-8.6); Neutrophils % (auto) 79.6 % (37.0-80.0); Red Blood Cells 2.53 10^6/uL (4.5-5.90); White Blood Cell 14.5 10^3/uL (4.4-10.8)
[2023-09-29 05:51] LABS: Anion Gap 9 (5-15); Carbon Dioxide 28 mmol/L (20-30); Chloride 96 mmol/L (98-107); Potassium 3.9 mmol/L (3.5-5.1); Sodium 133 mmol/L (136-145)
[2023-09-29 05:52] LABS: Calcium 8.5 mg/dL (8.5-10.1)
[2023-09-29 05:57] LABS: Blood Urea Nitrogen 29 mg/dL (9-23); Glucose 109 mg/dL (74-106)
[2023-09-29] MEDS: SEVELAMER 800 MG TAB PO SCH ×3 (06:00→22:00)
[2023-09-29] MEDS: hydrALAZINE HCL 25 MG TAB PO SCH ×3 (06:00→18:00)
[2023-09-29] MEDS ORDERED: SODIUM CHL 0.9% 1000 ML BAG XX ONE (07:00)
[2023-09-29] MEDS ORDERED: LIDOCAINE 2%HCL (LOCAL ANESTH.) INJ 20ML MDV ONE (08:48)
[2023-09-29] MEDS ORDERED: fentaNYL CITRATE 100 MCG/2 ML VL ONE (08:48)
[2023-09-29] MEDS ORDERED: ANGIOMAX 250 MG VIAL IV ONE (08:48)
[2023-09-29] MEDS ORDERED: SODIUM CHL 0.9% 50 ML ONE (08:48)
[2023-09-29] MEDS ORDERED: IODIXANOL 320MG/ML 100ML BTL IV ONE ×3 (08:48→11:05)
[2023-09-29] MEDS ORDERED: MIDAZOLAM HCL 2MG/2ML 2ml VIAL (1mg/ml) ONE ×2 (08:48→11:10)
[2023-09-29] MEDS ORDERED: IOHEXOL 350 MG/ML 100ML IJ ONE (09:34)
[2023-09-29] MEDS: amLODIPine BESYLATE 5 MG TAB PO SCH (10:00)
[2023-09-29] MEDS: ASPirin-EC 81 mg tab PO SCH (10:00)
[2023-09-29] MEDS: CLOPIDOGREL BISULFATE 75 MG TAB PO SCH (10:00)
[2023-09-29] MEDS: NIFEdipine ER 30 MG TAB PO SCH (10:00)
[2023-09-29] MEDS: AMIODARONE HCL 200 MG TAB PO SCH ×2 (10:00→21:56)
[2023-09-29] MEDS: CARVEDILOL 3.125 MG TAB PO SCH ×2 (10:00→21:57)
[2023-09-29] MEDS: FUROSEMIDE 100 MG/10ML VIAL IV SCH (10:00)
[2023-09-29] MEDS: CHOLECALCIFEROL (VITD3) 1,000UNIT=25mCg TAB PO SCH (10:00)
[2023-09-29] MEDS: FERROUS SULFATE 325mg EC TAB PO SCH ×2 (10:00→21:56)
[2023-09-29] MEDS: PIPERACILLIN-TAZOB 2.25GM 50 ML IV SCH ×2 (10:00→21:59)
[2023-09-29] MEDS: METOPROLOL TARTRATE 50 MG TAB PO SCH ×2 (10:00→21:58)
[2023-09-29] MEDS: PANTOPRAZOLE 40 MG TAB PO SCH (10:00)
[2023-09-29] MEDS ORDERED: EPOETIN ALFA-EPBX 10,000 UNIT/1ML VIAL SC ONE (21:00)
[2023-09-29] MEDS: ATORVASTATIN 20 MG TAB PO SCH (21:58)
[2023-09-29] MEDS: MORPHINE SULFATE INJ 2 MG/ml SYRG IV PRN (22:01)
[2023-09-30] MEDS: MORPHINE SULFATE INJ 2 MG/ml SYRG IV PRN ×3 (02:26→21:56)
[2023-09-30 05:00] VITALS: BP 151/67; PULSE 79; RESP 20; TEMP 98; O2SAT 95
[2023-09-30] MEDS: SEVELAMER 800 MG TAB PO SCH ×4 (05:26→22:00)
[2023-09-30 05:28] LABS: Chloride 98 mmol/L (98-107); Potassium 3.9 mmol/L (3.5-5.1); Sodium 135 mmol/L (136-145)
[2023-09-30 05:29] LABS: Anion Gap 9 (5-15); Carbon Dioxide 28 mmol/L (20-30)
[2023-09-30 05:30] LABS: Calcium 8.4 mg/dL (8.7-10.4)
[2023-09-30 05:35] LABS: BUN/Creatinine Ratio 6.4 (10.0-20.0); Blood Urea Nitrogen 23 mg/dL (9-23); Glucose 115 mg/dL (74-106)
[2023-09-30 08:00] VITALS: PULSE 83
[2023-09-30] MEDS: HYDROcodone-ACET 5/325MG TAB PO PRN ×2 (08:33→15:47)
[2023-09-30 09:00] VITALS: BP 145/61; PULSE 79; RESP 18; TEMP 98.5; O2SAT 96
[2023-09-30] MEDS: CHOLECALCIFEROL (VITD3) 1,000UNIT=25mCg TAB PO SCH (09:16)
[2023-09-30] MEDS: FERROUS SULFATE 325mg EC TAB PO SCH ×2 (09:16→21:37)
[2023-09-30] MEDS: CLOPIDOGREL BISULFATE 75 MG TAB PO SCH (09:17)
[2023-09-30] MEDS: ASPirin-EC 81 mg tab PO SCH (09:17)
[2023-09-30] MEDS: AMIODARONE HCL 200 MG TAB PO SCH ×2 (09:17→21:36)
[2023-09-30] MEDS: PANTOPRAZOLE 40 MG TAB PO SCH (09:18)
[2023-09-30] MEDS: amLODIPine BESYLATE 5 MG TAB PO SCH (09:19)
[2023-09-30] MEDS: FUROSEMIDE 100 MG/10ML VIAL IV SCH (09:20)
[2023-09-30] MEDS: CARVEDILOL 3.125 MG TAB PO SCH ×2 (09:20→21:36)
[2023-09-30] MEDS: METOPROLOL TARTRATE 50 MG TAB PO SCH ×2 (09:20→21:37)
[2023-09-30] MEDS: NIFEdipine ER 30 MG TAB PO SCH (09:31)
[2023-09-30] MEDS: PIPERACILLIN-TAZOB 2.25GM 50 ML IV SCH ×2 (09:34→21:33)
[2023-09-30] MEDS ORDERED: VANCOMYCIN PER PHARMACY 0 MG IV SCH (11:30)
[2023-09-30] MEDS ORDERED: VANCOMYCIN 1GM/200ML 200 ML IV ONE (11:45)
[2023-09-30 13:00] VITALS: BP 148/66; PULSE 71; RESP 18; TEMP 97.8; O2SAT 96
[2023-09-30] MEDS ORDERED: HYDR-4902 PO (14:03)
[2023-09-30] MEDS ORDERED: LEVO500T91 PO (14:03)
[2023-09-30] MEDS ORDERED: DOCU-94 PO (14:03)
[2023-09-30 14:22] LABS: Base Excess 3.7 mmol/L (-2.0-2.0)
[2023-09-30] MEDS: hydrALAZINE HCL 25 MG TAB PO SCH ×3 (15:46→18:00)
[2023-09-30 20:00] VITALS: PULSE 74; PULSE 76
[2023-09-30] MEDS: ATORVASTATIN 20 MG TAB PO SCH (21:37)
[2023-09-30 22:00] VITALS: BP 124/59; PULSE 73; RESP 16; TEMP 98.2; O2SAT 95
[2023-10-01] VITALS (9 sets, daily range): BP systolic 122–159; BP diastolic 62–76; PULSE 70–83; RESP 12–18; TEMP 36.4; O2SAT 91–100
[2023-10-01] MEDS: MORPHINE SULFATE INJ 2 MG/ml SYRG IV PRN (04:20)
[2023-10-01] MEDS: SEVELAMER 800 MG TAB PO SCH ×2 (05:25→14:00)
[2023-10-01] MEDS: hydrALAZINE HCL 25 MG TAB PO SCH ×4 (05:47→13:08)
[2023-10-01] MEDS ORDERED: SODIUM CHL 0.9% 1000 ML BAG XX ONE (07:00)
[2023-10-01 07:07] LABS: Hematocrit 21.9 % (41.0-53.0)
[2023-10-01 07:52] LABS: Hemoglobin 6.9 g/dL (13.5-17.5)
[2023-10-01] MEDS: FUROSEMIDE 100 MG/10ML VIAL IV SCH (09:35)
[2023-10-01] MEDS: PANTOPRAZOLE 40 MG TAB PO SCH (09:41)
[2023-10-01] MEDS: CLOPIDOGREL BISULFATE 75 MG TAB PO SCH (09:41)
[2023-10-01] MEDS: ASPirin-EC 81 mg tab PO SCH (09:41)
[2023-10-01] MEDS: AMIODARONE HCL 200 MG TAB PO SCH (09:41)
[2023-10-01] MEDS: FERROUS SULFATE 325mg EC TAB PO SCH (09:41)
[2023-10-01] MEDS: HYDROcodone-ACET 5/325MG TAB PO PRN (09:42)
[2023-10-01] MEDS: NIFEdipine ER 30 MG TAB PO SCH (09:49)
[2023-10-01] MEDS: METOPROLOL TARTRATE 50 MG TAB PO SCH (09:49)
[2023-10-01] MEDS: CARVEDILOL 3.125 MG TAB PO SCH (09:49)
[2023-10-01] MEDS: amLODIPine BESYLATE 5 MG TAB PO SCH (09:50)
[2023-10-01] MEDS: CHOLECALCIFEROL (VITD3) 1,000UNIT=25mCg TAB PO SCH (10:00)
[2023-10-01] MEDS: PIPERACILLIN-TAZOB 2.25GM 50 ML IV SCH (10:56)
[2023-10-01] MEDS ORDERED: VANCOMYCIN 1GM/200ML 200 ML IV ONE (14:00)
[2023-10-01] MEDS ORDERED: BUMETANIDE 2.5mg/10ml (0.25 mg/ml) INJ IV ONE (14:30)
[2023-10-01] MEDS ORDERED: EPOETIN ALFA-EPBX 10,000 UNIT/1ML VIAL SC ONE (21:00)
== END 2023-10-01 15:58 | disposition home health service (06) | DRG 182 ==
LOC: ER 11:20 → EDBD 11:20 → OVERFLOW 17:18 → WEST WING 09-23 01:24 → DOU IN ICU 09-23 18:53 → TELE-WESTW 09-25 16:33 → WEST WING 09-27 15:20 → TELE-WESTW 09-27 18:27
PROVIDERS: ADMIT Nurse Practitioner Family; ATTEND Nurse Practitioner Acute Care
PROC: 05HA33Z Insertion of Infusion Device into Left Brachial Vein, Percutaneous Approach (ICD-10-PCS; 2023-09-23)
PROC: B54NZZA Ultrasonography of Left Upper Extremity Veins, Guidance (ICD-10-PCS; 2023-09-23)
PROC: 047L3ZZ Dilation of Left Femoral Artery, Percutaneous Approach (ICD-10-PCS; principal; 2023-09-24)
PROC: B41FYZZ Fluoroscopy of Right Lower Extremity Arteries using Other Contrast (ICD-10-PCS; 2023-09-24)
PROC: 5A1D70Z Performance of Urinary Filtration, Intermittent, Less than 6 Hours Per Day (ICD-10-PCS; 2023-09-24)
PROC: 5A1D70Z Performance of Urinary Filtration, Intermittent, Less than 6 Hours Per Day (ICD-10-PCS; 2023-09-25)
PROC: 5A1D70Z Performance of Urinary Filtration, Intermittent, Less than 6 Hours Per Day (ICD-10-PCS; 2023-09-27)
PROC: B41G1ZZ Fluoroscopy of Left Lower Extremity Arteries using Low Osmolar Contrast (ICD-10-PCS; 2023-09-29)
PROC: B41J1ZZ Fluoroscopy of Other Lower Arteries using Low Osmolar Contrast (ICD-10-PCS; 2023-09-29)
PROC: 5A1D70Z Performance of Urinary Filtration, Intermittent, Less than 6 Hours Per Day (ICD-10-PCS; 2023-09-29)
PROC: 30233N1 Transfusion of Nonautologous Red Blood Cells into Peripheral Vein, Percutaneous Approach (ICD-10-PCS; 2023-10-01)
DX: E11.52 Type 2 diabetes mellitus with diabetic peripheral angiopathy with gangrene (principal); J96.01 Acute respiratory failure with hypoxia; I50.43 Acute on chronic combined systolic (congestive) and diastolic (congestive) heart failure; J15.69 Pneumonia due to other Gram-negative bacteria; I70.262 Atherosclerosis of native arteries of extremities with gangrene, left leg; I42.0 Dilated cardiomyopathy; N18.6 End stage renal disease; E11.22 Type 2 diabetes mellitus with diabetic chronic kidney disease; I70.221 Atherosclerosis of native arteries of extremities with rest pain, right leg; D63.1 Anemia in chronic kidney disease; E83.39 Other disorders of phosphorus metabolism; I13.2 Hypertensive heart and chronic kidney disease with heart failure and with stage 5 chronic kidney disease, or end stage renal disease; I48.91 Unspecified atrial fibrillation; Z99.2 Dependence on renal dialysis; Z79.899 Other long term (current) drug therapy; Z79.82 Long term (current) use of aspirin; Z79.02 Long term (current) use of antithrombotics/antiplatelets; Z87.891 Personal history of nicotine dependence; Z89.511 Acquired absence of right leg below knee; I25.10 Atherosclerotic heart disease of native coronary artery without angina pectoris; Z82.49 Family history of ischemic heart disease and other diseases of the circulatory system; Z83.3 Family history of diabetes mellitus; Z68.28 Body mass index [BMI] 28.0-28.9, adult
CPT/HCPCS: 36415; 36600; 37224; 71045; 73610; 73630; 75635; 75710; 76937; 80048; 80053; 80074; 80202; 81001; 82550; 82570; 82784; 82805; 82962; 83690; 83880; 83883; 83970; 84100; 84155; 84156; 84165; 84300; 84484; 85014; 85018; 85025; 85610; 85730; 86038; 86160; 86334; 86850; 86900; 86901; 86920; 87040; 87081; 90935; 93005; 93925; 93971; 96374; 97163; 99152; C1769; C1876; C1894; G0378; J1642; J2250; J2543; Q9967

== ENCOUNTER 2023-11-23 04:13 | Inpatient (IN) | payer MEDICAID ==
[~2023-11-23] VITALS: Ht 162.6 cm; Wt 80.0 kg
[2023-11-23] VITALS (8 sets, daily range): BP systolic 143–165; BP diastolic 89–91; PULSE 113–121; RESP 22–29; TEMP 97.5; O2SAT 90–100
[~2023-11-23 04:13] MED LIST changes: -ATOR10TA52 PO; +DOCU-94 PO; +LEVO500T91 PO
[2023-11-23] MEDS: NITROGLYCERIN 50MG/250ML 250 ML IV ONE (04:36)
[2023-11-23] MEDS: NITROGLYCERIN 50MG/250ML 250 ML IV SCH ×2 (04:47)
[2023-11-23 05:03] LABS: Basophils # (auto) 0.1 10 ^3/uL (0-0.2); Eosinophils # (auto) 0.3 10 ^3/uL (0-0.8); Eosinophils % (auto) 2.2 % (0.0-7.0); Hematocrit 33.4 % (41.0-53.0); Hemoglobin 10.1 g/dL (13.5-17.5); Lymphocytes # (auto) 4.1 10 ^3/uL (0.4-5.4); Lymphocytes % (auto) 31.1 % (10.0-50.0); Mean Corpuscular Hemoglobin 28.7 pg (28.0-32.0); Mean Corpuscular Hgb Conc. 30.2 g/dL (32.0-36.0); Monocytes # (auto) 0.7 10 ^3/uL (0-1.3); Monocytes % (auto) 5.5 % (0.0-12.0); Neutrophils % (auto) 60.2 % (37.0-80.0); Red Blood Cells 3.52 10^6/uL (4.5-5.90); Red Cell Distribution Width 22.7 % (11.8-14.3); White Blood Cell 13.3 10^3/uL (4.4-10.8)
[2023-11-23 05:06] LABS: Chloride 107 mmol/L (98-107); Potassium 3.8 mmol/L (3.5-5.1); Sodium 140 mmol/L (136-145)
[2023-11-23 05:08] LABS: Anion Gap 7 (5-15); Calcium 9.4 mg/dL (8.7-10.4); Carbon Dioxide 26 mmol/L (20-30)
[2023-11-23 05:13] LABS: BUN/Creatinine Ratio 8.1 (10.0-20.0); Blood Urea Nitrogen 37 mg/dL (9-23); Glucose 159 mg/dL (74-106)
[2023-11-23 06:27] LABS: Base Excess -2.3 mmol/L (-2.0-2.0)
[2023-11-23] MEDS ORDERED: ENOXAPARIN SOD 30 MG/0.3 ML SYRINGE SC SCH (10:45)
[2023-11-23] MEDS: hydrALAZINE HCL 25 MG TAB PO SCH (12:00)
[2023-11-23] MEDS: SODIUM CHL 0.9% 1000 ML BAG XX ONE (12:15)
[2023-11-23] MEDS: amLODIPine BESYLATE 5 MG TAB PO SCH (13:30)
[2023-11-23] MEDS: SEVELAMER 800 MG TAB PO SCH (14:00)
[2023-11-23] MEDS: ENOXAPARIN SOD 30 MG/0.3 ML SYRINGE SC SCH (15:47)
[2023-11-23] MEDS ORDERED: DEXTROSE (50%) 50ML SYRG IV PRN (19:00)
[2023-11-23] MEDS: HYDROcodone-ACET 5/325MG TAB PO PRN (19:45)
[2023-11-23] MEDS: ACCU-CHEK COMFORT CURVE STRIP VI SCH (22:00)
[2023-11-23] MEDS: InsuLIN REG 1unit/0.01ml Soln (100units/ml) SC SCH (22:00)
[2023-11-23] MEDS: EPOETIN ALFA-EPBX 4,000 UNIT/ML VIAL SC ONE (22:37)
[2023-11-23] MEDS: METOPROLOL TARTRATE 50 MG TAB PO SCH (22:38)
[2023-11-23] MEDS: ATORVASTATIN 20 MG TAB PO SCH (22:38)
[2023-11-23] MEDS: AMIODARONE HCL 200 MG TAB PO SCH (22:38)
[2023-11-23] MEDS: FERROUS SULFATE 325mg EC TAB PO SCH (22:39)
[2023-11-23] MEDS: DOCUSATE SOD 100 MG CAP PO SCH (22:39)
[2023-11-23] MEDS: FUROSEMIDE 20 MG/2 ML VIAL IV SCH (22:40)
[2023-11-24] VITALS (7 sets, daily range): BP systolic 123–139; BP diastolic 73–86; PULSE 91–100; RESP 18–23; TEMP 97.7–98.4; O2SAT 95–99
[2023-11-24 04:33] LABS: Basophils # (auto) 0.1 10 ^3/uL (0-0.2); Basophils % (auto) 0.9 % (0.0-2.0); Eosinophils # (auto) 0.2 10 ^3/uL (0-0.8); Eosinophils % (auto) 1.9 % (0.0-7.0); Hematocrit 27.7 % (41.0-53.0); Hemoglobin 8.9 g/dL (13.5-17.5); Lymphocytes # (auto) 1.9 10 ^3/uL (0.4-5.4); Lymphocytes % (auto) 23.7 % (10.0-50.0); Mean Corpuscular Hemoglobin 29.7 pg (28.0-32.0); Monocytes # (auto) 0.7 10 ^3/uL (0-1.3); Monocytes % (auto) 8.8 % (0.0-12.0); Neutrophils # (auto) 5.1 10 ^3/uL (1.6-8.6); Neutrophils % (auto) 64.7 % (37.0-80.0); Red Blood Cells 2.98 10^6/uL (4.5-5.90); White Blood Cell 7.9 10^3/uL (4.4-10.8)
[2023-11-24 04:55] LABS: Alanine Aminotransferase 26 U/L (7-40); Albumin 3.5 g/dL (3.2-4.8); Alkaline Phosphatase 119 U/L (46-116); Anion Gap 3 (5-15); Aspartate Aminotransferase 14 U/L (13-40); BUN/Creatinine Ratio 8.2 (10.0-20.0); Bilirubin, Total 0.5 mg/dL (0.2-1.0); Blood Urea Nitrogen 34 mg/dL (9-23); Calcium 9.3 mg/dL (8.7-10.4); Carbon Dioxide 31 mmol/L (20-30); Chloride 105 mmol/L (98-107); Glucose 88 mg/dL (74-106); Potassium 3.5 mmol/L (3.5-5.1); Sodium 139 mmol/L (136-145); Total Protein 6.7 g/dL (5.7-8.2)
[2023-11-24 04:59] LABS: Red Cell Distribution Width 23.1 % (11.8-14.3)
[2023-11-24] MEDS ORDERED: FUROSEMIDE 40 MG TAB PO SCH (10:00)
[2023-11-24] MEDS: ASPirin-EC 81 mg tab PO SCH (10:42)
[2023-11-24] MEDS: CLOPIDOGREL BISULFATE 75 MG TAB PO SCH (10:43)
[2023-11-24] MEDS: PANTOPRAZOLE 40 MG TAB PO SCH (10:43)
[2023-11-24] MEDS: HEPARIN SODIUM (PORCINE) 5000 UNITS/ML 1ML VIAL SC SCH (10:47)
[2023-11-25 05:00] VITALS: BP 138/83; PULSE 89; RESP 22; TEMP 98.3; O2SAT 100
[2023-11-25 06:47] LABS: Basophils # (auto) 0.1 10 ^3/uL (0-0.2); Eosinophils # (auto) 0.2 10 ^3/uL (0-0.8); Hemoglobin 8.9 g/dL (13.5-17.5); Monocytes # (auto) 0.6 10 ^3/uL (0-1.3)
[2023-11-25 06:50] LABS: Basophils % (auto) 1.3 % (0.0-2.0); Eosinophils % (auto) 3.7 % (0.0-7.0); Lymphocytes # (auto) 2.2 10 ^3/uL (0.4-5.4); Lymphocytes % (auto) 34.3 % (10.0-50.0); Mean Corpuscular Hemoglobin 28.7 pg (28.0-32.0); Mean Corpuscular Hgb Conc. 30.8 g/dL (32.0-36.0); Mean Corpuscular Volume 93.2 fL (80.0-100.0); Monocytes % (auto) 9.3 % (0.0-12.0); Neutrophils # (auto) 3.3 10 ^3/uL (1.6-8.6); Neutrophils % (auto) 51.4 % (37.0-80.0); Nucleated Red Blood Cells % 0.2 %; Red Blood Cells 3.11 10^6/uL (4.5-5.90); Red Cell Distribution Width 22.6 % (11.8-14.3); White Blood Cell 6.5 10^3/uL (4.4-10.8)
[2023-11-25 07:06] LABS: Alanine Aminotransferase 24 U/L (7-40); Albumin 3.4 g/dL (3.2-4.8); Alkaline Phosphatase 119 U/L (46-116); Anion Gap 8 (5-15); Aspartate Aminotransferase 13 U/L (13-40); BUN/Creatinine Ratio 10.2 (10.0-20.0); Bilirubin, Total 0.4 mg/dL (0.2-1.0); Calcium 8.8 mg/dL (8.5-10.1); Carbon Dioxide 28 mmol/L (20-30); Chloride 102 mmol/L (98-107); Glucose 81 mg/dL (74-106); Sodium 138 mmol/L (136-145); Total Protein 6.4 g/dL (5.7-8.2)
[2023-11-25 07:09] LABS: Blood Urea Nitrogen 51 mg/dL (9-23)
[2023-11-25 08:00] VITALS: PULSE 93
[2023-11-25 08:54] VITALS: BP 117/68; PULSE 89; RESP 18; TEMP 97.7; O2SAT 98
[2023-11-25] MEDS: SPIRONOLACTONE 25 MG TAB PO SCH (09:56)
[2023-11-25 13:00] VITALS: BP 135/73; PULSE 89; RESP 18; TEMP 97.9; O2SAT 98
[2023-11-25 16:30] VITALS: BP 130/85; PULSE 88; RESP 17; TEMP 98.1; O2SAT 96
[2023-11-25] MEDS ORDERED: SPIR25TA8 PO (18:13)
[2023-11-25] MEDS ORDERED: FURO40TA4 PO (18:13)
[2023-11-25 20:02] VITALS: BP 138/70; PULSE 88; RESP 19; O2SAT 100
[2023-11-25] MEDS ORDERED: FUROSEMIDE 100 MG/10ML VIAL IV SCH (22:00)
== END 2023-11-25 21:36 | disposition home or self-care (01) | DRG 133 ==
LOC: EDBD 04:13 → ER 04:13 → TELE 10:39 → TELE-WESTW 11-24 08:24
PROVIDERS: ADMIT Internal Medicine Pulmonary Disease; ATTEND Internal Medicine Pulmonary Disease
PROC: 5A1D70Z Performance of Urinary Filtration, Intermittent, Less than 6 Hours Per Day (ICD-10-PCS; principal; 2023-11-23)
PROC: 5A09357 Assistance with Respiratory Ventilation, Less than 24 Consecutive Hours, Continuous Positive Airway Pressure (ICD-10-PCS; 2023-11-23)
PROC: 5A1D70Z Performance of Urinary Filtration, Intermittent, Less than 6 Hours Per Day (ICD-10-PCS; 2023-11-25)
DX: J96.01 Acute respiratory failure with hypoxia (principal); I21.A1 Myocardial infarction type 2; I50.23 Acute on chronic systolic (congestive) heart failure; N18.6 End stage renal disease; E11.22 Type 2 diabetes mellitus with diabetic chronic kidney disease; D64.9 Anemia, unspecified; D72.829 Elevated white blood cell count, unspecified; E11.65 Type 2 diabetes mellitus with hyperglycemia; I13.2 Hypertensive heart and chronic kidney disease with heart failure and with stage 5 chronic kidney disease, or end stage renal disease; Z68.30 Body mass index [BMI] 30.0-30.9, adult; E66.9 Obesity, unspecified; E78.00 Pure hypercholesterolemia, unspecified; Z99.2 Dependence on renal dialysis; Z89.511 Acquired absence of right leg below knee; Z89.512 Acquired absence of left leg below knee; Z83.3 Family history of diabetes mellitus; Z82.49 Family history of ischemic heart disease and other diseases of the circulatory system
CPT/HCPCS: 36415; 36600; 71045; 76604; 80048; 80053; 82805; 82962; 83036; 83880; 84484; 85025; 87081; 87340; 90935; 93005; 94660; 96365; 99291; G0378; J1642; J1815

== ENCOUNTER 2023-12-03 10:44 | Inpatient (IN) | payer MEDICAID ==
[~2023-12-03] VITALS: Ht 167.6 cm; Wt 79.0 kg
[~2023-12-03 10:44] MED LIST changes: -HYDR-4902 PO; -LEVO500T91 PO; -SODI10PA PO; +SPIR25TA8 PO
[2023-12-03 11:17] VITALS: PULSE 99; RESP 13; O2SAT 98
[2023-12-03 11:19] LABS: Basophils # (auto) 0.1 10 ^3/uL (0-0.2); Eosinophils # (auto) 0.1 10 ^3/uL (0-0.8); Mean Corpuscular Hgb Conc. 30.6 g/dL (32.0-36.0); Monocytes # (auto) 0.5 10 ^3/uL (0-1.3)
[2023-12-03 11:20] LABS: Eosinophils % (auto) 1.1 % (0.0-7.0); Hematocrit 31.3 % (41.0-53.0); Hemoglobin 9.6 g/dL (13.5-17.5); Lymphocytes # (auto) 1.1 10 ^3/uL (0.4-5.4); Lymphocytes % (auto) 14.2 % (10.0-50.0); Mean Corpuscular Hemoglobin 28.9 pg (28.0-32.0); Mean Corpuscular Volume 94.5 fL (80.0-100.0); Monocytes % (auto) 5.8 % (0.0-12.0); Neutrophils # (auto) 6.2 10 ^3/uL (1.6-8.6); Neutrophils % (auto) 77.9 % (37.0-80.0); Red Blood Cells 3.31 10^6/uL (4.5-5.90); Red Cell Distribution Width 23.5 % (11.8-14.3)
[2023-12-03] MEDS: FUROSEMIDE 40 MG/4 ML VIAL IV ONE (11:33)
[2023-12-03 11:35] LABS: INR 1.37 (0.9-1.15); Prothrombin Time 14.1 sec (9.3-11.8)
[2023-12-03 11:40] LABS: Alanine Aminotransferase 23 U/L (7-40); Albumin 3.9 g/dL (3.2-4.8); Alkaline Phosphatase 128 U/L (46-116); Anion Gap 11 (5-15); Aspartate Aminotransferase 15 U/L (13-40); BUN/Creatinine Ratio 10.4 (10.0-20.0); Bilirubin, Direct 0.3 mg/dL (<0.3); Blood Urea Nitrogen 66 mg/dL (9-23); Calcium 8.5 mg/dL (8.5-10.1); Carbon Dioxide 25 mmol/L (20-30); Chloride 103 mmol/L (98-107); Glucose 159 mg/dL (74-106); Potassium 4.5 mmol/L (3.5-5.1); Sodium 139 mmol/L (136-145)
[2023-12-03 11:41] LABS: Bilirubin, Total 0.5 mg/dL (0.2-1.0)
[2023-12-03 11:55] LABS: Base Excess -4.4 mmol/L (-2.0-2.0)
[2023-12-03 12:05] LABS: Lipase 63 U/L (12-53)
[2023-12-03] MEDS: levoFLOXacin 750MG 150 ML IV ONE (13:00)
[2023-12-03] MEDS: ASPirin-EC 325mg tab PO ONE (13:00)
[2023-12-03] MEDS: diphenhdrAMINE HCL 50 MG/1 ML VL IV ONE (13:31)
[2023-12-03] MEDS: cefTRIAXone 1GM/50ML D5W 50 ML IV ONE (13:31)
[2023-12-03] MEDS: AZITHROMYCIN 500MG/ 250ML 250 ML IV ONE (13:55)
[2023-12-03] MEDS ORDERED: DEXTROSE (50%) 50ML SYRG IV PRN (14:30)
[2023-12-03] MEDS: ACCU-CHEK COMFORT CURVE STRIP VI SCH (17:00)
[2023-12-03] MEDS: InsuLIN REG 1unit/0.01ml Soln (100units/ml) SC SCH (17:00)
[2023-12-03 17:43] VITALS: BP 132/78; PULSE 76; RESP 16; TEMP 97.4; O2SAT 99
[2023-12-03 18:00] VITALS: BP 132/78; PULSE 76; RESP 16; TEMP 97.4; O2SAT 99
[2023-12-03] MEDS: hydrALAZINE HCL 25 MG TAB PO SCH (18:07)
[2023-12-03] MEDS: FUROSEMIDE 40 MG/4 ML VIAL IV SCH (18:07)
[2023-12-03 20:00] VITALS: PULSE 85; O2SAT 96
[2023-12-03 21:00] VITALS: BP 146/82; PULSE 89; RESP 20; TEMP 97.6; O2SAT 98
[2023-12-03] MEDS: FERROUS SULFATE 325mg EC TAB PO SCH (21:00)
[2023-12-03] MEDS: ATORVASTATIN 20 MG TAB PO SCH (21:00)
[2023-12-03] MEDS: AMIODARONE HCL 200 MG TAB PO SCH (21:01)
[2023-12-03] MEDS: SACUBITRIL-VALSARTAN 24mg/26mg TAB PO SCH (21:01)
[2023-12-03] MEDS: DOCUSATE SOD 100 MG CAP PO SCH (21:01)
[2023-12-03] MEDS: SEVELAMER 800 MG TAB PO SCH (21:02)
[2023-12-03] MEDS: METOPROLOL TARTRATE 50 MG TAB PO SCH (21:02)
[2023-12-03] MEDS ORDERED: ATORVASTATIN 20 MG TAB PO SCH (22:00)
[2023-12-04] VITALS (9 sets, daily range): BP systolic 139–162; BP diastolic 73–86; PULSE 63–80; RESP 16–20; TEMP 97.6–98.4; O2SAT 95–100
[2023-12-04] MEDS: HYDROcodone-ACET 5/325MG TAB PO PRN (02:46)
[2023-12-04 05:43] LABS: Basophils # (auto) 0.1 10 ^3/uL (0-0.2); Basophils % (auto) 1.3 % (0.0-2.0); Eosinophils # (auto) 0.1 10 ^3/uL (0-0.8); Eosinophils % (auto) 1.7 % (0.0-7.0); Hematocrit 28.2 % (41.0-53.0); Hemoglobin 8.9 g/dL (13.5-17.5); Lymphocytes # (auto) 1.5 10 ^3/uL (0.4-5.4); Lymphocytes % (auto) 22.6 % (10.0-50.0); Mean Corpuscular Hgb Conc. 31.5 g/dL (32.0-36.0); Mean Corpuscular Volume 95.4 fL (80.0-100.0); Monocytes # (auto) 0.6 10 ^3/uL (0-1.3); Monocytes % (auto) 8.7 % (0.0-12.0); Neutrophils # (auto) 4.4 10 ^3/uL (1.6-8.6); Neutrophils % (auto) 65.7 % (37.0-80.0); Nucleated Red Blood Cells % 0.1 %; Red Blood Cells 2.95 10^6/uL (4.5-5.90); Red Cell Distribution Width 23.6 % (11.8-14.3); White Blood Cell 6.7 10^3/uL (4.4-10.8)
[2023-12-04 06:04] LABS: Alanine Aminotransferase 10 U/L (7-40); Albumin 3.6 g/dL (3.2-4.8); Alkaline Phosphatase 106 U/L (46-116); Anion Gap 14 (5-15); Aspartate Aminotransferase 10 U/L (13-40); BUN/Creatinine Ratio 9.5 (10.0-20.0); Bilirubin, Total 0.6 mg/dL (0.2-1.0); Blood Urea Nitrogen 63 mg/dL (9-23); Calcium 8.9 mg/dL (8.7-10.4); Carbon Dioxide 21 mmol/L (20-30); Chloride 102 mmol/L (98-107); Glucose 82 mg/dL (74-106); Potassium 5.2 mmol/L (3.5-5.1); Sodium 137 mmol/L (136-145)
[2023-12-04] MEDS ORDERED: SODIUM CHL 0.9% 1000 ML BAG XX ONE (07:00)
[2023-12-04] MEDS: NIFEdipine ER 30 MG TAB PO SCH (10:00)
[2023-12-04] MEDS ORDERED: amLODIPine BESYLATE 5 MG TAB PO SCH (10:00)
[2023-12-04] MEDS ORDERED: SPIRONOLACTONE 25 MG TAB PO SCH (10:00)
[2023-12-04] MEDS: CLOPIDOGREL BISULFATE 75 MG TAB PO SCH (10:50)
[2023-12-04] MEDS: PANTOPRAZOLE 40 MG TAB PO SCH (10:50)
[2023-12-04] MEDS: ASPirin-EC 81 mg tab PO SCH (10:51)
[2023-12-04] MEDS: ENOXAPARIN SOD 30 MG/0.3 ML SYRINGE SC SCH (10:52)
[2023-12-05] VITALS (7 sets, daily range): BP systolic 110–148; BP diastolic 48–72; PULSE 62–73; RESP 16–20; TEMP 97.5–98.1; O2SAT 95–100
[2023-12-06 01:00] VITALS: BP 113/52; PULSE 65; RESP 18; TEMP 98.1; O2SAT 100
[2023-12-06 05:00] VITALS: BP 132/70; PULSE 64; RESP 18; TEMP 97.7; O2SAT 100
[2023-12-06 08:00] VITALS: BP 119/55; PULSE 59; PULSE 63; RESP 18; TEMP 97.5; O2SAT 100
[2023-12-06 08:36] VITALS: BP 119/55; PULSE 63; RESP 18; TEMP 97.5; O2SAT 97
[2023-12-06 13:00] VITALS: BP 112/54; PULSE 60; RESP 18; TEMP 97.9; O2SAT 100
[2023-12-06 15:10] VITALS: BP 112/54; PULSE 60
[2023-12-06] MEDS ORDERED: HEPARIN SODIUM (PORCINE) 5000 UNITS/ML 1ML VIAL SC SCH (22:00)
== END 2023-12-06 18:25 | disposition home or self-care (01) | DRG 137 ==
LOC: ER 10:44 → EDBD 10:44 → TELE 14:40 → TELE-WESTW 17:20
PROVIDERS: ADMIT Nurse Practitioner Family; ATTEND Internal Medicine
PROC: 5A1D70Z Performance of Urinary Filtration, Intermittent, Less than 6 Hours Per Day (ICD-10-PCS; principal; 2023-12-04)
PROC: 5A1D70Z Performance of Urinary Filtration, Intermittent, Less than 6 Hours Per Day (ICD-10-PCS; 2023-12-06)
DX: J15.69 Pneumonia due to other Gram-negative bacteria (principal); J96.21 Acute and chronic respiratory failure with hypoxia; I21.A1 Myocardial infarction type 2; I50.23 Acute on chronic systolic (congestive) heart failure; I27.20 Pulmonary hypertension, unspecified; N18.6 End stage renal disease; I48.92 Unspecified atrial flutter; J15.9 Unspecified bacterial pneumonia; E11.22 Type 2 diabetes mellitus with diabetic chronic kidney disease; I13.2 Hypertensive heart and chronic kidney disease with heart failure and with stage 5 chronic kidney disease, or end stage renal disease; D64.9 Anemia, unspecified; E78.00 Pure hypercholesterolemia, unspecified; I48.0 Paroxysmal atrial fibrillation; I49.3 Ventricular premature depolarization; E11.65 Type 2 diabetes mellitus with hyperglycemia; E11.51 Type 2 diabetes mellitus with diabetic peripheral angiopathy without gangrene; Y95 Nosocomial condition; Z99.2 Dependence on renal dialysis; Z89.512 Acquired absence of left leg below knee; Z89.511 Acquired absence of right leg below knee; Z91.158 Patient's noncompliance with renal dialysis for other reason; Z79.84 Long term (current) use of oral hypoglycemic drugs; Z89.611 Acquired absence of right leg above knee; Z89.612 Acquired absence of left leg above knee; Z99.81 Dependence on supplemental oxygen; Z87.891 Personal history of nicotine dependence; Z83.3 Family history of diabetes mellitus; Z82.49 Family history of ischemic heart disease and other diseases of the circulatory system
CPT/HCPCS: 36415; 36600; 71045; 80048; 80053; 80076; 82805; 82962; 83690; 83880; 84484; 85025; 85610; 87081; 90935; 93005; 96365; 96367; 96368; 96375; 99291; G0378; J1642; J1815; J1956

== ENCOUNTER 2025-03-19 08:15 | Inpatient (IN) | payer MEDICAID ==
[~2025-03-19] VITALS: Ht 167.6 cm; Wt 72.7 kg
[2025-03-19] VITALS (31 sets, daily range): BP systolic 78–186; BP diastolic 30–95; PULSE 85–138; RESP 17–34; TEMP 99.5; O2SAT 80–100
[~2025-03-19 08:15] MED LIST changes: -ATO40T PO; +ATOR-507 PO; -CARV6.25 PO; +CARV6.2517 PO; +LISI20TA56 PO; -SEVE800T PO; +SEVE800T7 PO
--- NOTE | 2025-03-19 08:31 | ECG ---
[facility] Test Date: 2025-03-19 Test Time: 08:27:11 Pat Name: NGOC ROSARIO Department: ED Room: [address] [place] [address] Gender: M Shop Assistant: JAMES : 1965 Requested By: ELLIS WASHINGTON Order Number: [id number] Reading MD: Sal Howard Measurements Intervals [place] Rate: 52 P: 113 TX: 270 QRS: 148 QRSD: 191 T: -38 QT: 537 QTc: 500 Interpretive Statements Sinus rhythm Prolonged TX interval Nonspecific intraventricular conduction delay Inferior infarct, age indeterminate Anterior infarct, age indeterminate Electronically Signed On 03-23-2025 9:41:32 PDT by Sal Howard Please click the below link to view image of tracing.
--- NOTE | 2025-03-19 09:00 | ED.PDOC ---
History of Present Illness HPI Comments 59-year-old male BIBA with prior medical history of CHF, diabetes, ESRD (M, W, F), hypertension, home O2 of 3 L; surgical history of bilateral BKA and the chief complaint of shortness a breath. Patient reports on having shortness a breath for the past 12 hours in his seems that it was due from him drinking a lot of water so weekend when he was with his mother, patient states on having liver/kidney problems. EMS state that the patient does have a blood pressure of 202/102 with crackles. EMS note that the patient on scene 92% on 3L of O2. Denies chills, fever, N/V/D, CP. No other associated symptoms, modifiers, recent injuries or sick contacts present at this time. Chief Complaint: Shortness of Breath Time Seen by MD: 08:35 Primary Care Provider: UNKNOWN Reviewed Notes: Nurses Notes, Medications, Allergies Allergies: Coded Allergies: NO KNOWN ALLERGIES (Unverified , 09/28/21) Home Meds Active Scripts Spironolactone (Spironolactone) 25 Mg Tab, 25 MG PO DAILY for 30 Days, #30 TAB Prov:ALEJANDRO VINCENT RESIDENT 11/25/23 Furosemide (Furosemide) 40 Mg Tab, 1 TAB PO DAILY for 30 Days, #30 TAB 5 Refills Prov:ALEJANDRO VINCENT RESIDENT 11/25/23 Docusate Sodium (Colace) 100 Mg Cap, 1 CAP PO BID for 30 Days, #30 CAP Take once a day an stop with episodes of diarrhea. Prov:KASIA QUICK NP 09/30/23 Cholecalciferol (D 5000) 5,000 Unit Cap, 5000 UNIT PO DAILY, #90 CAP Prov:DOROTHY LIND MD 08/31/23 Sevelamer Hydrochloride (Renagel) 800 Mg Tab, 2400 MG PO TID, #180 TAB Prov:DOROTHY LIND MD 08/31/23 Amiodarone Hcl (Amiodarone Hcl) 200 Mg Tab, 200 MG PO BID, #180 TAB Prov:DOROTHY LIND MD 08/31/23 Nifedipine (Nifedipine Er) 60 Mg Tab, 1 TAB PO DAILY, #90 TAB 1 Refill Prov:DOROTHY LIND MD 08/31/23 Ferrous Sulfate (Iron) 325 Mg Tab, 325 MG PO BID, #180 TAB Prov:DOROTHY LIND MD 08/31/23 Atorvastatin Calcium (Lipitor) 40 Mg Tab, 1 TAB PO QPM, #90 TAB 1 Refill Prov:DOROTHY LIND MD 08/31/23 Carvedilol (Coreg) 6.25 Mg Tab, 1 TAB PO BID, #180 TAB 1 Refill Prov:DOROTHY LIND MD 08/31/23 Aspirin (ASPIRIN/ENTERIC) 81 Mg Tab, 81 MG PO DAILY, #90 TAB Prov:DOROTHY LIND MD 08/31/23 Hydralazine HCl (Hydralazine HCl) 25 Mg Tab, 50 MG PO Q6HR, #240 TAB Prov:NACHO HANNON MD 02/09/22 Pantoprazole Sodium Sesquihydr (Protonix) 40 Mg Tab, 40 MG PO DAILY, #30 TAB Prov:BRENNA ALFREDO MD 10/02/21 Clopidogrel Bisulfate (CLOPIDOGREL) 75 Mg Tab, 1 TAB PO DAILY, #30 TAB 0 Refills Prov:BRENNA ALFREDO MD 10/02/21 Metoprolol Tartrate (LOPRESSOR TABLET) 50 Mg Tb, 1 TAB PO BID, #60 TAB 0 Refills Prov:BRENNA ALFREDO MD 10/02/21 Amlodipine Besylate (Amlodipine Besylate) 10 Mg Tab, 1 TAB PO DAILY, #30 TAB 0 Refills Prov:BRENNA ALFREDO MD 10/02/21 Reported Medications Lisinopril (Lisinopril) Unknown Strength Tab, PO DAILY 08/25/23 Metoprolol Tartrate (LOPRESSOR TABLET) Unknown Strength Tb, PO DAILY 08/25/23 Discontinued Scripts Furosemide (Furosemide) 40 Mg Tab, 80 MG PO DAILY for 30 Days, #60 TAB Prov:ARMEN YANEZ MD 03/01/22 Information Source: Patient, Emergency Med Personnel Mode of Arrival: EMS Severity: Moderate Timing: Hours Duration: Since onset, Hours Prehospital treatment: None Past Medical History PAST MEDICAL HISTORY: CHF, DM, ESRD (Wednesday, Wednesday, Wednesday), HTN Past Medical History (Other): 3 L of home O2 Surgical History: BKA (Bilateral) Family History Family History: Reviewed,noncontributory to illness, Unknown Social History Smoker: Non-Smoker, Quit Less Than 1 Year Alcohol: Denies ETOH Use, Sober Drugs: Denies Drug Use Lives In: Home Constitutional: denies: chills, diaphoresis, fatigue, fever, malaise, sweats, weakness, others EENTM: denies: blurred vision, double vision, ear bleeding, ear discharge, ear drainage, ear pain, ear ringing, eye pain, eye redness, hearing loss, mouth pain, mouth swelling, nasal discharge, nose bleeding, nose congestion, nose pain, photophobia, tearing, throat pain, throat swelling, voice changes, others Respiratory: reports: shortness of breath, wheezing; denies: cough, hemoptysis, orthopnea, SOB at rest, SOB with excertion, stridor, others Cardiovascular: denies: chest pain, dizzy spells, diaphoresis, Dyspnea on exertion, edema, irregular heart beat, left arm pain, lightheadedness, palpitations, PND, syncope, others Gastrointestinal: denies: abdomen distended, abdominal pain, blood streaked bowels, constipated, diarrhea, dysphagia, difficulty swallowing, hematemesis, melena, nausea, poor appetite, poor fluid intake, rectal bleeding, rectal pain, vomiting, others Genitourinary: denies: burning, dysuria, flank pain, frequency, hematuria, incontinence, penile discharge, penile sore, pain, testicle pain, testicle swelling, urgency, others Neurological: denies: dizziness, fainting, headache, left sided numbness, left sided weakness, numbness, paresthesia, pre-existing deficit, right sided numbness, right sided weakness, seizure, speech problems, tingling, tremors, weakness, others Musculoskeletal: denies: back pain, gout, joint pain, joint swelling, muscle pa in, muscle stiffness, neck pain, others Integumetry: denies: bruises, change in color, change in hair/nails, dryness, laceration, lesions, lumps, rash, wounds, others Allergic/Immunocompromised: denies: Difficulty Healing, Frequent Infections, Hives, Itching, others Hematologic/Lymphatic: denies: anemia, blood clots, easy bleeding, easy bruising, swollen glands, others Endocrine: denies: excessive hunger, excessive sweating, excessive thirst, excessive urination, flushing, intolerance to cold, intolerance to heat, unexplained weight gain, unexplained weight loss, others Psychiatric: denies: anxiety, bipolar disorder, depression, hopeless, panic disorder, schizophrenia, sleepless, suicidal, others All Other Systems: Reviewed and Negative Physical Exam General Appearance: Moderate Distress, Normal HEENT: Normal ENT Inspection, Pharynx Normal, TMs Normal Neck: Full Range of Motion, Non-Tender, Normal, Normal Inspection Respiratory: Chest Non-Tender, No Accessory Muscle Use, No Respiratory Distress, Other (Coarse breath sounds) Cardiovascular: No Edema, No JVD, No Murmur, No Gallop, Normal Peripheral Pulses, Regular Rate/Rhythm Breast Exam: Deferred Gastrointestinal: No Organomegaly, Non Tender, No Pulsatile Mass, Normal Bowel Sounds, Soft Genitalia: Deferred Pelvic: Deferred Rectal: Deferred Extremities: No calf tenderness, Normal capillary refill, No pedal edema, Other (Bilateral below-knee amputation.) Musculoskeletal : Apperance: Normal Neurologic: Alert, pony ride operator II-XII nml as Tested, No Motor Deficits, Normal Affect, Normal Mood, No Sensory Deficits Cerebellar Function: NOT DONE Reflexes: NOT DONE Skin: Dry, Normal Color, Warm Peripheral Pulses: 3+ Radial (R), 3+ Radial (L) Lymphatic: No Adenopathy Was a procedure done? Was a procedure done?: Yes Sedation Sedation?: No Central Line Recorder of insertion practice: [employer] Sales Rep Occupation of principal consultant: Attending Physician Indication: Hypotension, CVP monitoring Room prepared for procedure: Yes [employer] Sales [employer] performed hand hygien: Yes Maximal sterile barrier precau: Mask/Eye shield, Sterile gown Skin Preparation: Chlorhexidine gluconate Skin preparation completely dr: Yes Insertion site: Left, Femoral Central line catheter type: [id number] dialysis Number of lumens: 3 Antiseptic ointment applied to: Yes Intubation Indication: Respiratory Insufficiency Prep: Preoxygenation Intubation size: cm (8) EKG EKG : Pulse Rate (adult): 52 [place]: Normal Cardiac Rhythm: SB Block: None Hypertrophy: None ST: Normal Differential Dx Considerations may include: Anemia Electrolyte imbalance X-Ray, Labs, Meds, VS Vital Signs Date Time Temp Pulse Resp B/P (MAP) Pulse Ox O2 Delivery O2 Flow Rate FiO2 03/19/25 13:55 90/44 03/19/25 13:06 111 Mechanical Ventilator 03/19/25 13:04 81 23 187/91 (123) 97 100 03/19/25 12:59 91 03/19/25 12:50 106 03/19/25 12:20 209.1 105 03/19/25 12:15 103/55 03/19/25 12:15 103/55 03/19/25 11:57 198/100 03/19/25 11:50 110 03/19/25 11:47 63 30 141/81 (101) 86 100 03/19/25 11:45 213/124 03/19/25 11:15 20 98 Nasal Cannula* 3 32 03/19/25 11:11 187/85 03/19/25 11:03 51 28 187/85 (119) 98 03/19/25 10:00 98.8 51 27 186/94 (124) 100 98.8 03/19/25 09:23 21 99 03/19/25 09:00 98.1 52 24 191/93 (125) 92 98.1 03/19/25 09:00 52 03/19/25 08:40 Nasal Cannula* 4 36 03/19/25 08:27 52 03/19/25 08:21 98.1 52 30 202/102 (135) 97 98.1 Lab Test 03/19/25 12:38 03/19/25 12:30 03/19/25 11:37 03/19/25 11:02 Range/Units Blood Gas Specimen Type Arterial Blood Gas Sample Site Left brachial Blood Gas Patient Temperature 37.0 Arterial Blood Date Drawn [id number] Arterial Blood pH 7.385 7.350-7.450 Arterial Blood Partial Pressure CO2 49.0 H 35.0-48.0 mmHg Arterial Blood Partial Pressure O2 56.0 L 83.0-108.0 mmHg Arterial Blood HCO3 28.7 H 21.0-28.0 mmol/L Arterial Blood Oxygen Saturation 82.8 *L 94.0-98.0 % Arterial Blood Base Excess 3.0 -2.0-3.0 mmol/L Arterial Blood Oxyhemoglobin 81.6 L 94.0-98.0 % Arterial Blood Carboxyhemoglobin 1.0 0.5-1.5 % Arterial Blood Methemoglobin 0.4 0.0-1.5 % Lauro Test Modified Blood Gas Total Hemoglobin 11.30 L 13.5-17.5 g/dL Blood Gas Set Respiration Rate 20.0 Blood Gas Modality Vent - ac FiO2 % 100.0 Blood Gas Tidal Volume 500.0 Blood Gas PEEP or CPAP 5.0 Blood Gas Critical Value Read Back yes Blood Gas Notified Whom [place] Blood Gas Notified Time [id number] Blood Gas Notified By john pan Sodium Level 146 #H 136-145 mmol/L Potassium Level 7.2 *H 3.5-5.1 mmol/L Chloride Level 102 98-107 mmol/L Carbon Dioxide Level 25 20-31 mmol/L Anion Gap 19 H 5-15 Blood Urea Nitrogen 87 *H 9-23 mg/dL Creatinine 7.80 H 0.700-1.30 mg/dL Glomerular Filtration Rate Calc 7 >90 mL/min BUN/Creatinine Ratio 11.2 10.0-20.0 Serum Glucose 177 H 74-106 mg/dL Calcium Level 11.5 H 8.7-10.4 mg/dL Total Bilirubin 0.5 0.2-1.0 mg/dL Aspartate Amino Transferase (AST) 58 H 13-40 U/L Alanine Aminotransferase (ALT) 38 7-40 U/L Alkaline Phosphatase 198 H 46-116 U/L Total Protein 7.2 5.7-8.2 g/dL Albumin 3.8 3.2-4.8 g/dL Lactic Acid Level 2.7 *H 0.4-2.0 mmol/L POC Glucose 96 70-106 mg/dl Test 03/19/25 09:47 03/19/25 09:38 03/19/25 09:34 Range/Units Urine Color Light-yellow Yellow Urine Clarity Clear Clear Urine pH 8.0 5.0-9.0 Urine Specific [place] 1.013 1.001-1.035 Urine Protein 2+ H Negative Urine Ketones Negative Negative Urine Blood 1+ H Negative /uL Urine Nitrite Negative Negative Urine Bilirubin Negative Negative Urine Urobilinogen Normal Negative mg/dL Urine Leukocyte Esterase Negative Negative /uL Urine RBC 4 0 - 3 /hpf Urine Microscopic WBC 1 0-3 /HPF Urine Squamous Epithelial Cells Few <5 /hpf Urine Bacteria None seen None Seen /hpf Urine Glucose 1+ H Normal mg/dL White Blood Count 6.4 4.4-10.8 10^3/uL Red Blood Count 3.64 L 4.5-5.90 10^6/uL Hemoglobin 11.9 L 13.5-17.5 g/dL Hematocrit 36.8 L 41.0-53.0 % Mean Corpuscular Volume 101.2 H 80.0-100.0 fL Mean Corpuscular Hemoglobin 32.6 H 28.0-32.0 pg Mean Corpuscular Hemoglobin Concent 32.2 32.0-36.0 g/dL Red Cell Distribution Width 17.3 H 11.8-14.3 % Platelet Count 115 L 140-450 10^3/uL Mean Platelet Volume 9.9 6.9-10.8 fL Neutrophils (%) (Auto) 75.0 37.0-80.0 % Lymphocytes (%) (Auto) 15.5 10.0-50.0 % Monocytes (%) (Auto) 7.4 0.0-12.0 % Eosinophils (%) (Auto) 0.7 0.0-7.0 % Basophils (%) (Auto) 1.4 0.0-2.0 % Neutrophils # (Auto) 4.8 1.6-8.6 10 ^3/uL Lymphocytes # (Auto) 1.0 0.4-5.4 10 ^3/uL Monocytes # (Auto) 0.5 0-1.3 10 ^3/uL Eosinophils # (Auto) 0 0-0.8 10 ^3/uL Basophils # (Auto) 0.1 0-0.2 10 ^3/uL Nucleated Red Blood Cells 0.1 % Prothrombin Time 13.9 H 9.3-11.8 sec Prothrombin Time INR 1.35 H 0.9-1.15 Activated Partial Thromboplast Time 27.8 24.5-34.5 SEC Sodium Level 137 136-145 mmol/L Potassium Level 8.6 *H 3.5-5.1 mmol/L Chloride Level 101 98-107 mmol/L Carbon Dioxide Level 21 20-31 mmol/L Anion Gap 15 5-15 Blood Urea Nitrogen 86 *H 9-23 mg/dL Creatinine 7.89 H 0.700-1.30 mg/dL Glomerular Filtration Rate Calc 7 >90 mL/min BUN/Creatinine Ratio 10.9 10.0-20.0 Serum Glucose 102 74-106 mg/dL Lactic Acid Level 2.5 *H 0.4-2.0 mmol/L Calcium Level 11.6 H 8.7-10.4 mg/dL Total Bilirubin 0.6 0.2-1.0 mg/dL Aspartate Amino Transferase (AST) 45 H 13-40 U/L Alanine Aminotransferase (ALT) 34 7-40 U/L Alkaline Phosphatase 227 H 46-116 U/L Total Protein 8.6 H 5.7-8.2 g/dL Albumin 4.6 3.2-4.8 g/dL Hepatitis A IgM Antibody Negative Hepatitis B Surface Antigen Negative Negative Hepatitis B Core IgM Antibody Negative Negative Hepatitis C Antibody Negative Negative POC Glucose 99 70-106 mg/dl Current Medications Medications (Trade) Dose Ordered Sig/Tosha Route Start Time Stop Time Status Last Admin Vancomycin HCl 200 ml @ 200 mls/hr ONCE ONCE IV 03/19/25 09:30 03/19/25 10:29 DC 03/19/25 09:44 Insulin Human Regular (InsuLIN R) 10 units ONCE ONCE IV 03/19/25 11:00 03/19/25 11:25 DC 03/19/25 11:12 Dextrose 50 ml ONCE ONCE IV 03/19/25 11:00 03/19/25 11:25 DC 03/19/25 11:13 Albuterol (Ventolin Medneb) 20 mg ONCE ONCE NEB 03/19/25 11:00 03/19/25 11:25 DC 03/19/25 11:14 Sodium Bicarbonate 50 ml ONCE ONCE IV 03/19/25 11:00 03/19/25 11:25 DC 03/19/25 11:12 Furosemide (Lasix Injection) 20 mg ONCE ONCE IV 03/19/25 11:00 03/19/25 11:25 DC 03/19/25 11:11 Calcium Gluconate/ Sodium Chloride 50 ml @ 120 mls/hr ONCE ONCE IV 03/19/25 11:00 03/19/25 11:25 DC 03/19/25 11:12 Dextrose 50 ml ONCE ONCE IV 03/19/25 11:45 03/19/25 11:46 DC 03/19/25 11:55 Sodium Chloride 2,000 ml ONCE ONCE XX 03/19/25 11:45 03/19/25 11:49 DC 03/19/25 11:45 Sodium Bicarbonate 150 ml ONCE ONCE IV 03/19/25 12:00 03/19/25 12:01 DC 03/19/25 12:00 Epinephrine HCl 250 ml @ 7.5 mls/hr Q24H IV 03/19/25 12:15 03/19/25 12:15 Propofol 100 ml @ 2.181 mls/ hr Q24H IV 03/19/25 15:15 03/19/25 11:57 Midazolam HCl 50 ml @ 1 mls/hr Q24H IV 03/19/25 15:15 03/19/25 11:45 Dopamine HCl/ Dextrose 250 ml @ 13.631 mls/ hr [id number] IV 03/19/25 15:15 03/19/25 12:15 Norepinephrine Bitartrate 250 ml @ 3.75 mls/hr Q24H IV 03/19/25 15:15 03/19/25 13:55 Patient alert. Came in because of respiratory pain He is on oxygen. Possible sepsis. Lactic acid elevated. Dialysis. Had to hold the fluids. Antibiotics pain Hyperkalemia. Nephrology consultation. Continue to monitor. Patient lost pulses. CPR in progress. ACLS drugs use. Intubated the patient. Continue to monitor. Time of 1ST Reevaluation: 09:05 Reevaluation 1ST: Unchanged Patient Education/Counseling: Diagnosis, Treatment, Prognosis Family Education/Counseling: No Family Present SEPSIS Sepsis Screen Date sepsis recognized/suspect: Mar 19, 2025 Time Sepsis recognized/suspect: 820 Recent Procedure: No On Antibiotic Therapy: No Respiratory Rate >20: Yes Heart Rate >90: No Temp<36 C (96.8 F) or >38.3 C: No SBP <90 or MAP <65 mmHG: No New Acute Mental Status Change: No Is the patient on CPAP, BIPAP,: No Physician Orders Chest Portable (03/19/25 09:20) Accucheck (03/19/25 09:20) Blood Culture (03/19/25 09:20) Notify Md If Map <65 Or Bp<90 (03/19/25 09:20) If Map<65 Start Vasopressor (03/19/25 09:20) *[facility] (03/19/25 09:20) Potassium (03/19/25 14:50) Hemodialysis Orders (03/19/25 11:42) Dialysis Nursing Message (03/19/25 11:42) Document Fluid Input And Outpu (03/19/25 11:42) Epinephrine Hcl (03/19/25 12:15) Ventilator Orders (03/19/25 11:45) Respiratory Culture W/ Gs (03/19/25 ) Abg W/ Co-Ox (03/19/25 12:45) Sodium Bicarb 50meq/50ml Vial (03/19/25 12:45) Ventilator Orders (03/19/25 13:03) Chest Portable (03/19/25 13:12) Communication Order (03/19/25 12:15) Cefepime (Maxipime) (03/20/25 10:00) Cefepime 1gm/ 50ml (Maxipime 1gm/50ml) (03/19/25 15:15) Propofol (Diprivan) (03/19/25 15:15) Midazolam Drip 50 Mg/50ml (Versed Drip 5 (03/19/25 15:15) Rass Sedation Scale Q1HR (03/19/25 15:01) Dopamine 1600mcg/Ml D5w (03/19/25 15:15) Norepinephrine 8 Mg/250ml Kit (Levophed) (03/19/25 15:15) Vital Signs Date Time Temp Pulse Resp B/P (MAP) Pulse Ox O2 Delivery O2 Flow Rate FiO2 03/19/25 13:55 90/44 03/19/25 13:06 111 Mechanical Ventilator 03/19/25 13:04 81 23 187/91 (123) 97 100 03/19/25 12:59 91 03/19/25 12:50 106 03/19/25 12:20 209.1 105 03/19/25 12:15 103/55 03/19/25 12:15 103/55 03/19/25 11:57 198/100 03/19/25 11:50 110 03/19/25 11:47 63 30 141/81 (101) 86 100 03/19/25 11:45 213/124 03/19/25 11:15 20 98 Nasal Cannula* 3 32 03/19/25 11:11 187/85 03/19/25 11:03 51 28 187/85 (119) 98 03/19/25 10:00 98.8 51 27 186/94 (124) 100 98.8 03/19/25 09:23 21 99 03/19/25 09:00 98.1 52 24 191/93 (125) 92 98.1 03/19/25 09:00 52 03/19/25 08:40 Nasal Cannula* 4 36 03/19/25 08:27 52 03/19/25 08:21 98.1 52 30 202/102 (135) 97 98.1 Laboratory Tests Test 03/19/25 09:38 03/19/25 11:37 Lactic Acid Level 2.5 mmol/L (0.4-2.0) *H 2.7 mmol/L (0.4-2.0) *H White Blood Count 6.4 10^3/uL (4.4-10.8) Medications Medications Dose Ordered Sig/Tosha Route Start Time Stop Time Status Last Admin Dose Admin Albuterol 20 mg ONCE ONCE NEB 03/19/25 11:00 03/19/25 11:25 DC 03/19/25 11:14 Calcium Gluconate/ Sodium Chloride 50 ml @ 120 mls/hr ONCE ONCE IV 03/19/25 11:00 03/19/25 11:25 DC 03/19/25 11:12 Dextrose 50 ml ONCE ONCE IV 03/19/25 11:00 03/19/25 11:25 DC 03/19/25 11:13 Dextrose 50 ml ONCE ONCE IV 03/19/25 11:45 03/19/25 11:46 DC 03/19/25 11:55 Dopamine HCl/ Dextrose 250 ml @ 13.631 mls/ hr [id number] IV 03/19/25 15:15 03/19/25 12:15 Epinephrine HCl 250 ml @ 7.5 mls/hr Q24H IV 03/19/25 12:15 03/19/25 12:15 Furosemide 20 mg ONCE ONCE IV 03/19/25 11:00 03/19/25 11:25 DC 03/19/25 11:11 Insulin Human Regular 10 units ONCE ONCE IV 03/19/25 11:00 03/19/25 11:25 DC 03/19/25 11:12 Midazolam HCl 50 ml @ 1 mls/hr Q24H IV 03/19/25 15:15 03/19/25 11:45 Norepinephrine Bitartrate 250 ml @ 3.75 mls/hr Q24H IV 03/19/25 15:15 03/19/25 13:55 Propofol 100 ml @ 2.181 mls/ hr Q24H IV 03/19/25 15:15 03/19/25 11:57 Sodium Bicarbonate 50 ml ONCE ONCE IV 03/19/25 11:00 03/19/25 11:25 DC 03/19/25 11:12 Sodium Bicarbonate 150 ml ONCE ONCE IV 03/19/25 12:00 03/19/25 12:01 DC 03/19/25 12:00 Sodium Chloride 2,000 ml ONCE ONCE XX 03/19/25 11:45 03/19/25 11:49 DC 03/19/25 11:45 Vancomycin HCl 200 ml @ 200 mls/hr ONCE ONCE IV 03/19/25 09:30 03/19/25 10:29 DC 03/19/25 09:44 Departure 1 Departure Time of Disposition: 11:37 Impression: Primary Impression: Acute respiratory failure Qualified Codes: J96.01 - Acute respiratory failure with hypoxia Additional Impressions: Hyperkalemia Acute exacerbation of CHF (congestive heart failure) Qualified Codes: I50.43 - Acute on chronic combined systolic (congestive) and diastolic (congestive) heart failure Disposition: ADMITTED INPATIENT Admit to: Med Surg Condition: Guarded Critical Care Note Critical Care Time?: Yes (90 min-critical care time only) Stability Stability form required: No Heart Score Heart Score: Heart Score Response (Comments) Value History Slightly Suspicious 0 EKG Normal 0 Age 45-64 1 Risk Factors >3 or Hx ASHD 2 Troponin N/A 0 Total 3 I personally scribed for ELLIS WASHINGTON MD ([email or web address]) on 03/19/25 at 09:00. Electronically submitted by Srinath Mejias ([email or web address]). ELLIS WASHINGTON MD Mar 19, 2025 09:00
[2025-03-19] MEDS: LACTATED RINGER'S 1,900 ML IV ONE (09:29)
[2025-03-19] MEDS: VANCOMYCIN 1GM/200ML PM 200 ML IV ONE (09:44)
--- NOTE | 2025-03-19 09:46 | DVH ---
CHEST RADIOGRAPH Indication: sob Technique: Single frontal view of the chest was obtained COMPARISON: XY CHEST XRAY 1 VIEW on DOS: 12/03/23, XY CHEST PORTABLE on DOS: 11/23/23, XY CHEST XRAY 1 V IEW on DOS: 09/30/23, XY CHEST XRAY 1 VIEW on DOS: 09/22/23, CXRP on DOS: 03/10/22 FINDINGS: Lines and Tubes: Tunneled right central venous catheter in satisfactory position. Lungs: Patchy bilateral airspace disease Pleura: No effusion. No pneumothorax. Cardiomediastinal contours: Cardiomegaly Bones: Unremarkable IMPRESSION: Mild pulmonary edema
[2025-03-19 10:01] LABS: Hematocrit 36.8 % (41.0-53.0); Hemoglobin 11.9 g/dL (13.5-17.5); Mean Corpuscular Hemoglobin 32.6 pg (28.0-32.0); Mean Corpuscular Volume 101.2 fL (80.0-100.0); Nucleated Red Blood Cells % 0.1 %
[2025-03-19 10:15] LABS: Alanine Aminotransferase 34 U/L (7-40); Anion Gap 15 (5-15); BUN/Creatinine Ratio 10.9 (10.0-20.0); Carbon Dioxide 21 mmol/L (20-31); Chloride 101 mmol/L (98-107); Glucose 102 mg/dL (74-106); Sodium 137 mmol/L (136-145)
[2025-03-19 10:16] LABS: Albumin 4.6 g/dL (3.2-4.8); Bilirubin, Total 0.6 mg/dL (0.2-1.0)
[2025-03-19 10:17] LABS: INR 1.35 (0.9-1.15); Partial Thromboplastin Time 27.8 SEC (24.5-34.5); Prothrombin Time 13.9 sec (9.3-11.8)
[2025-03-19 10:30] LABS: Alkaline Phosphatase 227 U/L (46-116); Calcium 11.6 mg/dL (8.7-10.4); Total Protein 8.6 g/dL (5.7-8.2)
[2025-03-19] MEDS: CEFEPIME 1GM/ 50ML 50 ML IV ONE ×2 (10:30→16:33)
[2025-03-19 10:31] LABS: Blood Urea Nitrogen 86 mg/dL (9-23); Lactic Acid w/Reflex 2.5 mmol/L (0.4-2.0); Potassium 8.6 mmol/L (3.5-5.1)
[2025-03-19] MEDS: SODIUM ZIRCONIUM CYCL 10 GM PAK PO ONE (11:00)
[2025-03-19] MEDS: FUROSEMIDE 20 MG/2 ML VIAL IV ONE (11:11)
[2025-03-19] MEDS: SODIUM BICARB 8.4% 50Meq/50ml SYR INJ IV ONE (11:12)
[2025-03-19] MEDS: CALCIUM GLUC 1,000mg/50ml-NS 50 ML IV ONE (11:12)
[2025-03-19] MEDS: InsuLIN REG 1unit/0.01ml Soln (100units/ml) IV ONE (11:12)
[2025-03-19] MEDS: DEXTROSE (50%) 50ML SYRG IV ONE ×2 (11:13→11:55)
[2025-03-19] MEDS: ALBUTEROL SULF 2.5 MG/0.5ML(0.5%) NEB SOLN NEB ONE (11:14)
[2025-03-19 11:15] LABS: Urine Protein, UAD 2+ (Negative)
[2025-03-19] MEDS: DEXTROSE 50% SYRINGE 50 ML IV ONE (11:36)
[2025-03-19] MEDS: SODIUM CHL 0.9% 1000 ML BAG XX ONE (11:45)
[2025-03-19] MEDS: MIDAZOLAM DRIP 50 mg/50mL 50 ML IV ONE ×2 (11:45→14:19)
[2025-03-19] MEDS: MIDAZOLAM DRIP 50 mg/50mL 50 ML IV SCH (11:45)
[2025-03-19] MEDS: ROCURONIUM 10MG/ML 10ML VIAL IV ONE (11:45)
[2025-03-19] MEDS: PROPOFOL 100 ML IV SCH (11:57)
[2025-03-19] MEDS: PROPOFOL 100 ML IV ONE (11:57)
[2025-03-19] MEDS: SODIUM BICARB 8.4% 50Meq/50ml SYR Vial IV ONE (12:00)
[2025-03-19] MEDS: EPINEPHrine HCL 250 ML IV ONE (12:12)
[2025-03-19] MEDS: DOPamine 1600MCG/ML D5W 250 ML IV SCH (12:15)
[2025-03-19] MEDS: EPINEPHrine HCL 250 ML IV SCH (12:15)
--- NOTE | 2025-03-19 12:21 | RESUS ---
CODE BLUE ASSESSSMENT History of Events History of Events: Patient presented to ER for c/o SOB. Critical lab results included postassium level 8.6. Patient is chronic kidney disease and on dialysis. Per bedside RN patient suddeny became unresponsive with agonal respirations. Bedside playground monitor showered asystole. No palpable pulse. CODE BLUE paged. CPR initiated. Initial Information Date: Mar 19, 2025 Time: 11:37 Location of Arrest: ER Arrest Witnessed: Yes CPR started initial time: 11:37 CPR started by whom: Hospital Staff Type of arrest: Cardiac, Witnessed Spontaneous Respirations: No Pulse Present: No Monitoring: Pulse Oximetry, Capnography, Telemetry Crash Cart Opened and Supplies: Yes Airway Ventilation Breathing at Onset: Assisted Artificial Ventilation: Bag/Endo tube Intubation Size: 7.5 cuffed Intubated by: Dr Washington Intubation Attempts: 1 Intubated orally: Yes Intubated Nasaly: No Confirmation: Auscultation, Exhaled CO2 Circulation Circulation #1: Time: 11:39 Circulation Comment: asystole Circulation #2: Time: 11:41 Circulation Comment: asystole Circulation #3: Time: 11:43 Circulation Comment: vfib (220) Circulation #4: Time: 11:45 Circulation Comment: asystole Circulation #5: Time: 11:47 Circulation Comment: vfib (226) Circulation #6: Time: 11:48 Pulse Rate (adult): 105 Blood Pressure Systolic: 218 Blood Pressure Diastolic: 127 Temperature (Fahrenheit): 98.4 Circulation Comment: ROSC Defibrillation Defbrillation #1: Time Defibrillator Applied: 11:43 EKG Rhythm: V-Fibrillation Time Defibrillator Shocked Pt.: 11:43 Defib. Joules: 150 Pulse Present: No Defbrillation #2: Time Defibrillator Applied: 11:47 EKG Rhythm: V-Fibrillation Compressions: Manual Time Defibrillator Shocked Pt.: 11:47 Defib. Joules: 150 Comment DEFIB JOULES ORDERED BY DR WASHINGTON Procedure - IV Procedure - IV : IV Side: Right IV Location: Forearm Anterior IV Catheter Type: Peripheral IV IV Placed: Pre-Hospital IV Gauge: 18 IV Line Care: Saline Flush Medications & Response Medications and Responses #1: Medication Time: 11:38 ADULT Medications Given ADULT: Epinephrine 1 mg, Sodium Bacarbinate 50 meq Route of Administration: IV Medications and Responses #2: Medication Time: 11:40 ADULT Medications Given ADULT: Sodium Bacarbinate 50 meq, Calcium Chloride 10 mL Medications and Responses #3: Medication Time: 11:42 ADULT Medications Given ADULT: Epinephrine 1 mg Route of Administration: IV Medications and Responses #4: Medication Time: 11:45 ADULT Medications Given ADULT: Epinephrine 1 mg, Magnesium Sulfate 1 gm Route of Administration: IV Medications and Responses #5: Medication Time: 11:48 ADULT Medications Given ADULT: Amiodarone 150 mg, 2 Amps Na Bicarb Route of Administration: IV Comment MEDS GIVEN POST ROSC. VERBAL ORDERS FROM DR WASHINGTON Nurses Notes Yelitza Coma Scale Eye Opening: None (1) Yelitza Coma Scale Motor: None (1) Pupil Reaction: Sluggish Bedside Blood Glucose: 169 Time Code Ended Time Code Ended: 11:48 Post Arrest Status: Ventilated Outcome of code: Successful Attending called: Yes Code Team Present: DR PADMINI ALICIA RN MARK SAMANO ROSC Time of ROSC: 11:48 Lucero Melissa Mar 19, 2025 12:20
[2025-03-19] MEDS ORDERED: SODIUM BICARB IV ONE (12:30)
[2025-03-19] MEDS ORDERED: [UNRECOGNIZED DRUG - OTHER] IV ONE (12:30)
[2025-03-19] MEDS: SODIUM BICARB 50mEq/50ml Vial 150 ML in D5W 5% 1,000 ML IV ONE (12:45)
[2025-03-19 12:49] LABS: Base Excess 3.0 mmol/L (-2.0-3.0)
[2025-03-19 12:57] LABS: Hepatitis B Surface Antigen Negative (Negative)
[2025-03-19] MEDS: NOREPINEPHRINE 8 MG/250ML KIT 250 ML IV ONE (12:58)
--- NOTE | 2025-03-19 12:58 | DVHINCON2 ---
Date of service: Mar 19, [address] Zurita Reason for Consultation ESRD History of Present Illness 59 year old Male hx Dm2, CHF, htn, severe PVD w/ b/l BKA, CAD multivessel disease who was not a candidate for CABG due to overall cardiac condition, and end-stage renal disease on hemodialysis. Patient presents to the hospital this a.m. on his dialysis day complaining of sudden onset shortness of breath. He reports yesterday he had excessive fluid intake. Upon initial evaluation in the ER patient was short of breath and responded to nasal cannula. He was still verbal and alert upon my exam. Nephrology was consulted prior to lab results and urgent hemodialysis was recommended clinically based on patient's respiratory state. Prior to dialysis initiation patient became unresponsive and had cardiac arrest. Labs resulted showed potassium of 8.6. Patient received hyperkalemia protocol. Patient is now intubated on pressors and a central line was placed Allergies: Coded Allergies: NO KNOWN ALLERGIES (Unverified , 09/28/21) Home Meds Active Scripts Spironolactone (Spironolactone) 25 Mg Tab, 25 MG PO DAILY for 30 Days, #30 TAB Prov:ALEJANDRO VINCENT RESIDENT 11/25/23 Furosemide (Furosemide) 40 Mg Tab, 1 TAB PO DAILY for 30 Days, #30 TAB 5 Refills Prov:ALEJANDRO VINCENT RESIDENT 11/25/23 Docusate Sodium (Colace) 100 Mg Cap, 1 CAP PO BID for 30 Days, #30 CAP Take once a day an stop with episodes of diarrhea. Prov:KASIA QUICK NP 09/30/23 Cholecalciferol (D 5000) 5,000 Unit Cap, 5000 UNIT PO DAILY, #90 CAP Prov:DOROTHY LIND MD 08/31/23 Sevelamer Hydrochloride (Renagel) 800 Mg Tab, 2400 MG PO TID, #180 TAB Prov:DOROTHY LIND MD 08/31/23 Amiodarone Hcl (Amiodarone Hcl) 200 Mg Tab, 200 MG PO BID, #180 TAB Prov:DOROTHY LIND MD 08/31/23 Nifedipine (Nifedipine Er) 60 Mg Tab, 1 TAB PO DAILY, #90 TAB 1 Refill Prov:DOROTHY LIND MD 08/31/23 Ferrous Sulfate (Iron) 325 Mg Tab, 325 MG PO BID, #180 TAB Prov:DOROTHY LIND MD 08/31/23 Atorvastatin Calcium (Lipitor) 40 Mg Tab, 1 TAB PO QPM, #90 TAB 1 Refill Prov:DOROTHY LIND MD 08/31/23 Carvedilol (Coreg) 6.25 Mg Tab, 1 TAB PO BID, #180 TAB 1 Refill Prov:DOROTHY LIND MD 08/31/23 Aspirin (ASPIRIN/ENTERIC) 81 Mg Tab, 81 MG PO DAILY, #90 TAB Prov:DOROTHY LIND MD 08/31/23 Furosemide (Furosemide) 40 Mg Tab, 80 MG PO DAILY for 30 Days, #60 TAB Prov:ARMEN YANEZ MD 03/01/22 Hydralazine HCl (Hydralazine HCl) 25 Mg Tab, 50 MG PO Q6HR, #240 TAB Prov:NACHO HANNON MD 02/09/22 Pantoprazole Sodium Sesquihydr (Protonix) 40 Mg Tab, 40 MG PO DAILY, #30 TAB Prov:BRENNA ALFREDO MD 10/02/21 Clopidogrel Bisulfate (CLOPIDOGREL) 75 Mg Tab, 1 TAB PO DAILY, #30 TAB 0 Refills Prov:BRENNA ALFREDO MD 10/02/21 Metoprolol Tartrate (LOPRESSOR TABLET) 50 Mg Tb, 1 TAB PO BID, #60 TAB 0 Refills Prov:BRENNA ALFREDO MD 10/02/21 Amlodipine Besylate (Amlodipine Besylate) 10 Mg Tab, 1 TAB PO DAILY, #30 TAB 0 Refills Prov:BRENNA ALFREDO MD 10/02/21 Reported Medications Lisinopril (Lisinopril) Unknown Strength Tab, PO DAILY 08/25/23 Metoprolol Tartrate (LOPRESSOR TABLET) Unknown Strength Tb, PO DAILY 08/25/23 Current Medications Current Medications Medications (Trade) Dose Ordered Sig/Tosha Route PRN Reason Start Time Stop Time Status Last Admin Cefepime HCl 50 ml @ 12.5 mls/hr Q8HR IV 03/19/25 14:00 UNV Cefepime HCl 50 ml @ 12.5 mls/hr Q8H IV 03/19/25 18:00 Future Hold Epinephrine HCl 250 ml @ 7.5 mls/hr Q24H IV 03/19/25 12:15 Family History: Diabetes mellitus G8 MOTHER G8 MOTHER Diabetes mellitus G8 MOTHER G8 MOTHER Hypertension G8 MOTHER Review of Systems Shortness of breath H&P Exam Vital Signs/I&O Vital Sign Date Time Temp Pulse Resp B/P (MAP) Pulse Ox O2 Delivery O2 Flow Rate FiO2 03/19/25 12:50 106 03/19/25 12:20 209.1 03/19/25 11:47 30 141/81 (101) 86 100 03/19/25 11:15 Nasal Cannula* 3 Physical Exam Elderly male critically ill-appearing Now intubated Right chest central dialysis catheter tunneled Abdomen is soft Bilateral BKA Left femoral central line Labs/Diagnostic Data Labs/Diagnostic Data Laboratory Tests Test 03/19/25 12:38 03/19/25 12:30 03/19/25 11:37 03/19/25 11:02 Range/Units Blood Gas Specimen Type Arterial Blood Gas Sample Site Left brachial Blood Gas Patient Temperature 37.0 Arterial Blood Date Drawn [id number] Arterial Blood pH 7.385 7.350-7.450 Arterial Blood Partial Pressure CO2 49.0 H 35.0-48.0 mmHg Arterial Blood Partial Pressure O2 56.0 L 83.0-108.0 mmHg Arterial Blood HCO3 28.7 H 21.0-28.0 mmol/L Arterial Blood Oxygen Saturation 82.8 *L 94.0-98.0 % Arterial Blood Base Excess 3.0 -2.0-3.0 mmol/L Arterial Blood Oxyhemoglobin 81.6 L 94.0-98.0 % Arterial Blood Carboxyhemoglobin 1.0 0.5-1.5 % Arterial Blood Methemoglobin 0.4 0.0-1.5 % Lauro Test Modified Blood Gas Total Hemoglobin 11.30 L 13.5-17.5 g/dL Blood Gas Set Respiration Rate 20.0 Blood Gas Modality Vent - ac FiO2 % 100.0 Blood Gas Tidal Volume 500.0 Blood Gas PEEP or CPAP 5.0 Blood Gas Critical Value Read Back yes Blood Gas Notified Whom [place] Blood Gas Notified Time [id number] Blood Gas Notified By john pan Lactic Acid Level 2.7 *H 0.4-2.0 mmol/L POC Glucose 96 70-106 mg/dl Test 03/19/25 09:47 03/19/25 09:38 03/19/25 09:34 Range/Units Urine Color Light-yellow Yellow Urine Clarity Clear Clear Urine pH 8.0 5.0-9.0 Urine Specific [place] 1.013 1.001-1.035 Urine Protein 2+ H Negative Urine Ketones Negative Negative Urine Blood 1+ H Negative /uL Urine Nitrite Negative Negative Urine Bilirubin Negative Negative Urine Urobilinogen Normal Negative mg/dL Urine Leukocyte Esterase Negative Negative /uL Urine RBC 4 0 - 3 /hpf Urine Microscopic WBC 1 0-3 /HPF Urine Squamous Epithelial Cells Few <5 /hpf Urine Bacteria None seen None Seen /hpf Urine Glucose 1+ H Normal mg/dL White Blood Count 6.4 4.4-10.8 10^3/uL Red Blood Count 3.64 L 4.5-5.90 10^6/uL Hemoglobin 11.9 L 13.5-17.5 g/dL Hematocrit 36.8 L 41.0-53.0 % Mean Corpuscular Volume 101.2 H 80.0-100.0 fL Mean Corpuscular Hemoglobin 32.6 H 28.0-32.0 pg Mean Corpuscular Hemoglobin Concent 32.2 32.0-36.0 g/dL Red Cell Distribution Width 17.3 H 11.8-14.3 % Platelet Count 115 L 140-450 10^3/uL Mean Platelet Volume 9.9 6.9-10.8 fL Neutrophils (%) (Auto) 75.0 37.0-80.0 % Lymphocytes (%) (Auto) 15.5 10.0-50.0 % Monocytes (%) (Auto) 7.4 0.0-12.0 % Eosinophils (%) (Auto) 0.7 0.0-7.0 % Basophils (%) (Auto) 1.4 0.0-2.0 % Neutrophils # (Auto) 4.8 1.6-8.6 10 ^3/uL Lymphocytes # (Auto) 1.0 0.4-5.4 10 ^3/uL Monocytes # (Auto) 0.5 0-1.3 10 ^3/uL Eosinophils # (Auto) 0 0-0.8 10 ^3/uL Basophils # (Auto) 0.1 0-0.2 10 ^3/uL Nucleated Red Blood Cells 0.1 % Prothrombin Time 13.9 H 9.3-11.8 sec Prothrombin Time INR 1.35 H 0.9-1.15 Activated Partial Thromboplast Time 27.8 24.5-34.5 SEC Sodium Level 137 136-145 mmol/L Potassium Level 8.6 *H 3.5-5.1 mmol/L Chloride Level 101 98-107 mmol/L Carbon Dioxide Level 21 20-31 mmol/L Anion Gap 15 5-15 Blood Urea Nitrogen 86 *H 9-23 mg/dL Creatinine 7.89 H 0.700-1.30 mg/dL Glomerular Filtration Rate Calc 7 >90 mL/min BUN/Creatinine Ratio 10.9 10.0-20.0 Serum Glucose 102 74-106 mg/dL Lactic Acid Level 2.5 *H 0.4-2.0 mmol/L Calcium Level 11.6 H 8.7-10.4 mg/dL Total Bilirubin 0.6 0.2-1.0 mg/dL Aspartate Amino Transferase (AST) 45 H 13-40 U/L Alanine Aminotransferase (ALT) 34 7-40 U/L Alkaline Phosphatase 227 H 46-116 U/L Total Protein 8.6 H 5.7-8.2 g/dL Albumin 4.6 3.2-4.8 g/dL Hepatitis B Surface Antigen Negative Negative POC Glucose 99 70-106 mg/dl Assessment 59-year-old male with past medical history of end-stage renal disease, coronary artery disease and severe peripheral vascular disease presents to the hospital on his dialysis day complaining of shortness of breath. He was admitted for respiratory distress and hyperkalemia his ER course complicated by cardiac arrest. Hyperkalemia Cardiac arrest Fluid overload End-stage renal disease on hemodialysis Acute respiratory failure Stabilization, hyperkalemia protocol, pressors to maintain mean arterial pressure greater than 65 Hemodialysis treatment was ordered as stat Very poor prognosis, grim treatment course subject to change based on clinical condition Critical care time spent 75 minutes Plan discussed with: Patient LARY ALICIA MD Mar 19, 2025 12:58
[2025-03-19 13:04] LABS: Hepatitis C Antibody Negative (Negative)
[2025-03-19 13:05] LABS: Alanine Aminotransferase 38 U/L (7-40); Albumin 3.8 g/dL (3.2-4.8); Anion Gap 19 (5-15); BUN/Creatinine Ratio 11.2 (10.0-20.0); Bilirubin, Total 0.5 mg/dL (0.2-1.0); Carbon Dioxide 25 mmol/L (20-31); Chloride 102 mmol/L (98-107); Total Protein 7.2 g/dL (5.7-8.2)
--- NOTE | 2025-03-19 13:06 | RESUS ---
CODE BLUE ASSESSSMENT History of Events History of Events: PT WENT INTO V-FIB. CPR INITIATED BY STAFF. PT SHOCKED X 1 AND 1 EPI GIVEN. ROSC OBTAINED. Initial Information Date: Mar 19, 2025 Time: 12:53 Location of Arrest: ER Arrest Witnessed: Yes CPR started initial time: 12:53 CPR started by whom: Hospital Staff Type of arrest: Cardiac Monitoring: ECG, Pulse Oximetry, Telemetry Crash Cart Opened and Supplies: Yes Airway Ventilation Breathing at Onset: Assisted Oxygen Delivery Method: Mechanical Ventilator Circulation Circulation : Time: 12:55 Pulse Rate (adult): 111 Blood Pressure Systolic: 80 Blood Pressure Diastolic: 11 Defibrillation Defbrillation : EKG Rhythm: V-Fibrillation Compressions: Manual Time Defibrillator Shocked Pt.: 12:54 Defib. Joules: 150 Medications & Response Medications and Responses : Medication Time: 12:54 ADULT Medications Given ADULT: Epinephrine 1 mg Route of Administration: IV EKG Rhythm: V-Fibrillation Nurses Notes Yelitza Coma Scale Eye Opening: None (1) [place] Coma Scale Motor: None (1) Time Code Ended Time Code Ended: 12:55 Post Arrest Status: Ventilated Outcome of code: Successful Code Team Present: DR PADMINI DOBBINS RT JORDON HERNANDEZ RN RADHA RN ANGELICA RNS ROSC Time of ROSC: 12:55 TOBIAS CASPER Mar 19, 2025 13:06
[2025-03-19 13:07] LABS: Alkaline Phosphatase 198 U/L (46-116); Calcium 11.5 mg/dL (8.7-10.4); Glucose 177 mg/dL (74-106); Sodium 146 mmol/L (136-145)
[2025-03-19 13:08] LABS: Blood Urea Nitrogen 87 mg/dL (9-23); Potassium 7.2 mmol/L (3.5-5.1)
--- NOTE | 2025-03-19 13:45 | DVH ---
CHEST RADIOGRAPH Indication: ET TUBE AND OF PLACEMENT Technique: Single frontal view of the chest was obtained COMPARISON: XY CHEST PORTABLE on DOS: 03/19/25, XY CHEST XRAY 1 VIEW on DOS: 12/03/23, XY CHEST PORTABL E on DOS: 11/23/23, XY CHEST XRAY 1 VIEW on DOS: 09/30/23, XY CHEST XRAY 1 VIEW on DOS: 09/22/23 FINDINGS: Lines and Tubes: Endotracheal tube, enteric catheter in satisfactory position. Right tunneled centra l venous catheter in satisfactory position. Lungs: Multifocal airspace disease Pleura: No effusion. No pneumothorax. Cardiomediastinal contours: Cardiomegaly Bones: Unremarkable IMPRESSION: Lines and tubes in satisfactory position. No significant interval change.
[2025-03-19] MEDS: NOREPINEPHRINE 8 MG/250ML KIT 250 ML IV SCH (13:55)
[2025-03-19] MEDS ORDERED: CEFEPIME 1GM/ 50ML 50 ML IV SCH ×2 (14:00→18:00)
[2025-03-19] MEDS ORDERED: ONDANSETRON HCL 4 MG/2 ML VIAL IV PRN (15:30)
[2025-03-19] MEDS ORDERED: NITROGLYCERIN 0.4 MG SL TAB SL PRN (15:30)
[2025-03-19] MEDS ORDERED: MORPHINE SULFATE INJ 2 MG/ml SYRG IV PRN (15:30)
[2025-03-19] MEDS ORDERED: ACETAMINOPHEN 325 MG TAB PO PRN (15:30)
[2025-03-19] MEDS ORDERED: VANCOMYCIN PER PHARMACY 0 MG IV SCH (15:30)
[2025-03-19] MEDS ORDERED: DEXTROSE (50%) 50ML SYRG IV PRN (15:30)
[2025-03-19] MEDS ORDERED: DOCUSATE SOD 100 MG CAP PO PRN (15:30)
--- NOTE | 2025-03-19 16:01 | DVHHP2 ---
History of Present Illness Reason for Visit: Shortness of breath History of Present Illness Dustin Osei, is a 59-year-old male with past medical history of ESRD on HD, COPD home oxygen use, CHF, bilateral BKA, and diabetes, who came in shortness of breath. Patient came in stating he has been feeling short of breath and like he has extra fluid on him for 1 day. While the patient was in the ER his potassium came back critical elevated at 8.6. Hyperkalemia protocol was ordered, the patient had a v-Fib arrest prior to the hyperkalemia protocol being able to be fully administered. Cardiovascular: HTN Renal/: Chronic renal failure Smoke: No ALCOHOL: none Drugs: None Lives: with Family Domestic Violence: Neg Review of Systems Constitutional: No: Fever, Chills, Sweats, Weakness, Malaise, Other Eyes: No: Pain, Vision change, Conjunctivae inflammation, Eyelid inflammation, Other, Redness ENT: No: Ear pain, Ear discharge, Nose pain, Nose discharge, Nose congestion, Mouth pain, Mouth swelling, Throat pain, Throat swelling, Other Respiratory: Shortness of breath; No: Cough, Dry, SOB with excertion, Wheezing, Hemoptysis, Pleuritic Pain, Sputum, Wheezing, Other Cardiovascular: No: Chest Pain, Palpitations, Orthopnea, Paroxysmal Noc. Dyspnea, Edema, Lt Headedness, Other Gastrointestinal: No: Nausea, Vomiting, Abdominal Pain, Diarrhea, Constipation, Melena, Hematochezia, Other Genitourinary: No Dysuria, No Frequency, No Incontinence, No Hematuria, No Retention, No Other Musculoskeletal: No: other, neck pain, shoulder pain, arm pain, back pain, hand pain, leg pain, foot pain Skin: No: Rash, Lesions, Jaundice, Bruising, Other Neurological: No: Weakness, Numbness, Incoordination, Change in speech, Confusion, Seizures, Other Allergies: Coded Allergies: NO KNOWN ALLERGIES (Unverified , 09/28/21) Medications Current Medications Medications Dose Ordered Sig/Tosha Route Start Time Stop Time Status Last Admin Dose Admin Cefepime HCl 50 ml @ 12.5 mls/hr Q8HR IV 03/19/25 14:00 UNV Epinephrine HCl 250 ml @ 7.5 mls/hr Q24H IV 03/19/25 12:15 03/19/25 12:15 37.5 MLS/HR Cefepime HCl 0.5 gm/Dextrose 50 ml @ 12.5 mls/hr DAILY IV 03/20/25 10:00 Propofol 100 ml @ 2.181 mls/ hr Q24H IV 03/19/25 15:15 UNV Midazolam HCl 50 ml @ 1 mls/hr Q24H IV 03/19/25 15:15 UNV Dopamine HCl/ Dextrose 250 ml @ 13.631 mls/ hr [id number] IV 03/19/25 15:15 UNV Norepinephrine Bitartrate 250 ml @ 3.75 mls/hr Q24H IV 03/19/25 15:15 UNV Ondansetron HCl 4 mg Q4HP PRN IV 03/19/25 15:30 UNV Docusate Sodium 100 mg BIDPRN PRN PO 03/19/25 15:30 UNV Enoxaparin Sodium 30 mg DAILY SC 03/20/25 10:00 UNV Acetaminophen 650 mg Q6HP PRN PO 03/19/25 15:30 UNV Nitroglycerin 0.4 mg Q5MINP PRN SL 03/19/25 15:30 UNV Morphine Sulfate 2 mg Q30M PRN IV 03/19/25 15:30 UNV Aspirin 81 mg DAILY PO 03/20/25 10:00 UNV Sevelamer HCl 2,400 mg TID PO 03/19/25 22:00 UNV Patient Own Medication 1 tab QPM PO 03/19/25 18:00 UNV Patient Own Medication 325 mg BID PO 03/19/25 22:00 UNV Exam Vital Signs Vital Signs Date Time Temp Pulse Resp B/P (MAP) Pulse Ox O2 Delivery O2 Flow Rate FiO2 03/19/25 13:06 111 Mechanical Ventilator 03/19/25 13:04 23 187/91 (123) 97 100 03/19/25 12:20 209.1 03/19/25 11:15 3 General Appearance: Other (Sedated and intubated) HEENT: Atraumatic, PERRLA, Mucous membr. moist/pink Respiratory: Clear to auscultation, Normal air movement Cardiovascular: Normal S1, Normal S2, Other (SB-ST) Abdominal: Normal bowel sounds, Soft Extremities: Other (bilateral BKA) Skin: No rashes, No breakdown, No significant lesion Neuro: Other (sedated) Labs/Xrays Labs Test 03/19/25 12:38 03/19/25 12:30 03/19/25 11:37 03/19/25 11:02 Range/Units Blood Gas Specimen Type Arterial Blood Gas Sample Site Left brachial Blood Gas Patient Temperature 37.0 Arterial Blood Date Drawn [id number] Arterial Blood pH 7.385 7.350-7.450 Arterial Blood Partial Pressure CO2 49.0 H 35.0-48.0 mmHg Arterial Blood Partial Pressure O2 56.0 L 83.0-108.0 mmHg Arterial Blood HCO3 28.7 H 21.0-28.0 mmol/L Arterial Blood Oxygen Saturation 82.8 *L 94.0-98.0 % Arterial Blood Base Excess 3.0 -2.0-3.0 mmol/L Arterial Blood Oxyhemoglobin 81.6 L 94.0-98.0 % Arterial Blood Carboxyhemoglobin 1.0 0.5-1.5 % Arterial Blood Methemoglobin 0.4 0.0-1.5 % Aluro Test Modified Blood Gas Total Hemoglobin 11.30 L 13.5-17.5 g/dL Blood Gas Set Respiration Rate 20.0 Blood Gas Modality Vent - ac FiO2 % 100.0 Blood Gas Tidal Volume 500.0 Blood Gas PEEP or CPAP 5.0 Blood Gas Critical Value Read Back yes Blood Gas Notified Whom [place] Blood Gas Notified Time [id number] Blood Gas Notified By john pan Sodium Level 146 #H 136-145 mmol/L Potassium Level 7.2 *H 3.5-5.1 mmol/L Chloride Level 102 98-107 mmol/L Carbon Dioxide Level 25 20-31 mmol/L Anion Gap 19 H 5-15 Blood Urea Nitrogen 87 *H 9-23 mg/dL Creatinine 7.80 H 0.700-1.30 mg/dL Glomerular Filtration Rate Calc 7 >90 mL/min BUN/Creatinine Ratio 11.2 10.0-20.0 Serum Glucose 177 H 74-106 mg/dL Calcium Level 11.5 H 8.7-10.4 mg/dL Total Bilirubin 0.5 0.2-1.0 mg/dL Aspartate Amino Transferase (AST) 58 H 13-40 U/L Alanine Aminotransferase (ALT) 38 7-40 U/L Alkaline Phosphatase 198 H 46-116 U/L Total Protein 7.2 5.7-8.2 g/dL Albumin 3.8 3.2-4.8 g/dL Lactic Acid Level 2.7 *H 0.4-2.0 mmol/L POC Glucose 96 70-106 mg/dl Test 03/19/25 09:47 03/19/25 09:38 Range/Units Urine Color Light-yellow Yellow Urine Clarity Clear Clear Urine pH 8.0 5.0-9.0 Urine Specific [place] 1.013 1.001-1.035 Urine Protein 2+ H Negative Urine Ketones Negative Negative Urine Blood 1+ H Negative /uL Urine Nitrite Negative Negative Urine Bilirubin Negative Negative Urine Urobilinogen Normal Negative mg/dL Urine Leukocyte Esterase Negative Negative /uL Urine RBC 4 0 - 3 /hpf Urine Microscopic WBC 1 0-3 /HPF Urine Squamous Epithelial Cells Few <5 /hpf Urine Bacteria None seen None Seen /hpf Urine Glucose 1+ H Normal mg/dL White Blood Count 6.4 4.4-10.8 10^3/uL Red Blood Count 3.64 L 4.5-5.90 10^6/uL Hemoglobin 11.9 L 13.5-17.5 g/dL Hematocrit 36.8 L 41.0-53.0 % Mean Corpuscular Volume 101.2 H 80.0-100.0 fL Mean Corpuscular Hemoglobin 32.6 H 28.0-32.0 pg Mean Corpuscular Hemoglobin Concent 32.2 32.0-36.0 g/dL Red Cell Distribution Width 17.3 H 11.8-14.3 % Platelet Count 115 L 140-450 10^3/uL Mean Platelet Volume 9.9 6.9-10.8 fL Neutrophils (%) (Auto) 75.0 37.0-80.0 % Lymphocytes (%) (Auto) 15.5 10.0-50.0 % Monocytes (%) (Auto) 7.4 0.0-12.0 % Eosinophils (%) (Auto) 0.7 0.0-7.0 % Basophils (%) (Auto) 1.4 0.0-2.0 % Neutrophils # (Auto) 4.8 1.6-8.6 10 ^3/uL Lymphocytes # (Auto) 1.0 0.4-5.4 10 ^3/uL Monocytes # (Auto) 0.5 0-1.3 10 ^3/uL Eosinophils # (Auto) 0 0-0.8 10 ^3/uL Basophils # (Auto) 0.1 0-0.2 10 ^3/uL Nucleated Red Blood Cells 0.1 % Prothrombin Time 13.9 H 9.3-11.8 sec Prothrombin Time INR 1.35 H 0.9-1.15 Activated Partial Thromboplast Time 27.8 24.5-34.5 SEC Hepatitis A IgM Antibody Negative Hepatitis B Surface Antigen Negative Negative Hepatitis B Core IgM Antibody Negative Negative Hepatitis C Antibody Negative Negative CHEST RADIOGRAPH FINDINGS: Lines and Tubes: Endotracheal tube, enteric catheter in satisfactory position. Right tunneled central venous catheter in satisfactory position. Lungs: Multifocal airspace disease Pleura: No effusion. No pneumothorax. Cardiomediastinal contours: Cardiomegaly Bones: Unremarkable IMPRESSION: Lines and tubes in satisfactory position. No significant interval change. Assessment/Plan Assessment/Plan Assessment: Hyperkalemia, S/P V-Tach arrest x 2, ESRD on HD, Hypotension, Bradycardia, CHF, Plan: Admit to ICU, Nephrology consult, Hyperkalemia protocol, Cooling measures, Vasopressors as needed to maintain SBP > 100, HD today, Home medications reconciled, Consider cardiology consult, X-Ray in am, ABG in am, IV Protonix, Plan discussed with: Patient My Orders Orders - SURENDRA COOK [employer] CLASSIFIER Procedure Category Date Status Time Admit ADMIT 03/19/25 Transmitted 15:16 Code Status CODE 03/19/25 Transmitted 15:16 Ondansetron Hcl PHA 03/19/25 Logged (Zofran) 15:30 Docusate Sodium PHA 03/19/25 Logged Capsule (Colace 15:30 Complete Blood Count LAB 03/20/25 Verified 04:00 Comprehensive LAB 03/20/25 Verified Metabolic Panel 04:00 Npo (Nothing By DIET 03/19/25 Transmitted Mouth) Diet Dinner Condition: Critical [facility]I 03/19/25 In Process 15:16 Enoxaparin Sodium PHA 03/20/25 Logged (Lovenox) 10:00 Acetaminophen Tablet PHA 03/19/25 Logged (Tylenol Tablet) 15:30 Nitroglycerin PHA 03/19/25 Logged Sublingual (Ntrostat 15:30 Morphine Sulfate PHA 03/19/25 Logged Injection 15:30 Stat Ekg For Chest [facility]I 03/19/25 In Process Pain 15:16 Notify Md Of Changes [facility] 03/19/25 In Process From Base 15:16 Liaison Planner For [facility] 03/19/25 In Process 24 Hours 15:16 Emergency Dysrhythmia [facility] 03/19/25 In Process Protocol 15:16 Rhythm Strips Once [facility] 03/19/25 In Process Every Shift 15:16 Oxygen By Nasal RT 03/19/25 Transmitted Cannula 15:16 Aspirin Enteric PHA 03/20/25 Logged Coated Tablet 10:00 Sevelamer (Renagel) PHA 03/19/25 Logged 22:00 (Nf) Atorvastatin [facility] 03/19/25 Logged Calcium (Lipitor) 18:00 (Nf) Ferrous Sulfate PHA 03/19/25 Logged (Iron) 22:00 Vancomycin Per PHA 03/19/25 Transmitted Pharmacy 15:30 Date of Service: Mar 19, 2025 Billing Provider: SURENDRA COOK Common Visit Codes: [id number] INP/OBS CARE (HIGH) SURENDRA COOK Mar 19, 2025 16:01
[2025-03-19] MEDS: InsuLIN REG 1unit/0.01ml Soln (100units/ml) SC SCH (18:00)
[2025-03-19] MEDS ORDERED: PATIENTS OWN MEDICATION (Atorvastatin Calcium (Lipitor) 1 TAB) PO SCH (18:00)
[2025-03-19] MEDS: ACCU-CHEK COMFORT CURVE STRIP VI SCH (18:00)
--- NOTE | 2025-03-19 18:04 | RESUS ---
CODE BLUE ASSESSSMENT History of Events History of Events: PATIENT NOTED TO BECOME BRADYCARDIC ON BEDSIDE RIPRAP PLACING SUPERVISOR UPON TRANSFER FROM [facility] TO ICU BED. ATROPINE ADMINISTERED PRIOR TO CODE BLUE WITH NO CHANGE NOTED. NO PULSE DETECTED UPON PALPATION. CODE BLUE INITIATED. CPR STARTED. Initial Information Date: Mar 19, 2025 Time: 17:43 Location of Arrest: ICU ([place]) Arrest Witnessed: Yes CPR started initial time: 17:43 CPR started by whom: Hospital Staff Type of arrest: Cardiac, Witnessed Spontaneous Respirations: No Pulse Present: No Monitoring: Pulse Oximetry, Capnography, Telemetry Crash Cart Opened and Supplies: Yes Airway Ventilation Breathing at Onset: Assisted Oxygen Delivery Method: Mechanical Ventilator Comments: INTUBATED PRIOR TO CODE BLUE Circulation Circulation #1: Time: 17:44 Circulation Comment: PEA Circulation #2: Time: 17:46 Pulse Rate (adult): 136 Blood Pressure Systolic: 228 Blood Pressure Diastolic: 138 Circulation Comment: ROSC Medications & Response Medications and Responses #1: Medication Time: 17:42 ADULT Medications Given ADULT: Atropine 1 mg Route of Administration: IV Comment GIVEN PRIOR TO CODE BLUE Medications and Responses #2: Medication Time: 17:43 ADULT Medications Given ADULT: Epinephrine 1 mg Route of Administration: IV Medications and Responses #3: Medication Time: 17:45 ADULT Medications Given ADULT: Sodium Bacarbinate 50 meq Route of Administration: IV Nurses Notes Yelitza Coma Scale Eye Opening: None (1) [place] Coma Scale Verbal: None (1) [place] Coma Scale Motor: None (1) Pupil Reaction: Sluggish Bedside Blood Glucose: 92 Time Code Ended Time Code Ended: 17:46 Post Arrest Status: Ventilated Outcome of code: Successful Family notified: Yes Attending called: Yes Code Team Present: ONCOLOGY CONSULTANT YGING MARINE ENGINEER CPVECLINDA BUSTILLO RT Lucero Reese Mar 19, 2025 18:04
[2025-03-19 18:21] LABS: Base Excess 5.6 mmol/L (-2.0-3.0)
[2025-03-19 19:17] LABS: Base Excess 3.8 mmol/L (-2.0-3.0)
--- NOTE | 2025-03-19 19:27 | RESUS ---
GAYE BLUE ASSESSSMENT History of Events History of Events: PATIENT NOTED TO BECOME BRADYCARDIC ON BEDSIDE DESIGN QUALITY ENGINEER ATROPINE ADMINISTERED PRIOR TO CODE BLUE WITH NO CHANGE NOTED. NO PULSE DETECTED UPON PALPATION. CODE BLUE INITIATED. CPR STARTED. Initial Information Date: Mar 19, 2025 Time: 18:55 Location of Arrest: ICU ([place]) Arrest Witnessed: Yes CPR started by whom: Hospital Staff Type of arrest: Cardiac, Witnessed Spontaneous Respirations: No Pulse Present: No Monitoring: Pulse Oximetry, Capnography, Telemetry Crash Cart Opened and Supplies: Yes Airway Ventilation Breathing at Onset: Assisted Oxygen Delivery Method: Mechanical Ventilator Comments: intubated prior to code blue Circulation Circulation #1: Time: 18:57 Circulation Comment: PEA Circulation #2: Time: 18:59 Pulse Rate (adult): 128 Blood Pressure Systolic: 186 Blood Pressure Diastolic: 95 Circulation Comment: ROSC Medications & Response Medications and Responses #1: Medication Time: 18:52 ADULT Medications Given ADULT: Atropine 1 mg Route of Administration: IV EKG Rhythm: Sinus Bradycardia Medications and Responses #2: Medication Time: 18:55 ADULT Medications Given ADULT: Epinephrine 1 mg Route of Administration: IV Medications and Responses #3: Medication Time: 18:57 ADULT Medications Given ADULT: Sodium Bacarbinate 50 meq Route of Administration: IV Medications and Responses #4: Medication Time: 18:59 ADULT Medications Given ADULT: Calcium Chloride 10 mL Route of Administration: IV Medications and Responses #5: Medication Time: 18:59 ADULT Medications Given ADULT: Sodium Bacarbinate 50 meq Nurses Notes Yelitza Coma Scale Eye Opening: None (1) [place] Coma Scale Verbal: None (1) [place] Coma Scale Motor: None (1) Pupil Reaction: Sluggish Bedside Blood Glucose: 92 Time Code Ended Time Code Ended: 18:59 Post Arrest Status: Ventilated Outcome of code: Successful Family notified: Yes Attending called: Yes Code Team Present: MAISHA BALTAZAR RN Lucero Borden RN, RN Mar 19, 2025 19:27
[2025-03-19 19:34] LABS: Anion Gap 12 (5-15); BUN/Creatinine Ratio 8.5 (10.0-20.0); Bilirubin, Total 0.9 mg/dL (0.2-1.0); Chloride 98 mmol/L (98-107); Potassium 4.9 mmol/L (3.5-5.1); Total Protein 5.8 g/dL (5.7-8.2)
[2025-03-19 19:36] LABS: Alanine Aminotransferase 51 U/L (7-40); Albumin 3.0 g/dL (3.2-4.8); Alkaline Phosphatase 165 U/L (46-116); Blood Urea Nitrogen 33 mg/dL (9-23); Calcium 11.3 mg/dL (8.7-10.4); Carbon Dioxide 36 mmol/L (20-31); Glucose 230 mg/dL (74-106); Sodium 146 mmol/L (136-145)
[2025-03-19] MEDS: DOBUTamine 1000MCG/ML 250 ML IV SCH (19:45)
--- NOTE | 2025-03-19 19:57 | ECG ---
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
--- NOTE | 2025-03-19 19:57 | ECG ---
[facility] Test Date: 2025-03-19 Test Time: 11:50:58 Pat Name: NGOC ROSARIO Department: ED Room: [address] [place] [address] A Gender: M White Sugar Boiler: JAMES : 1965 Requested By: SURENDRA COOK Order Number: [id number] Reading MD: Sal Howard Measurements Intervals [place] Rate: 110 P: 0 [place]: 0 QRS: 101 QRSD: 114 T: 109 QT: 287 QTc: 389 Interpretive Statements Junctional tachycardia Borderline intraventricular conduction delay Repol abnrm suggests ischemia, diffuse leads Electronically Signed On 03-23-2025 9:42:24 PDT by Sal Howard Please click the below link to view image of tracing.
[2025-03-19] MEDS: DOBUTamine 1000MCG/ML 250 ML IV ONE (20:08)
[2025-03-19] MEDS ORDERED: AMIODARONE HCL (50 MG/ ML) 3 ML VIAL IV ONE (20:15)
[2025-03-19] MEDS ORDERED: VASOPRESSIN 20 UNITS in SODIUM CHL 0.9% 99 ML IV SCH (22:00)
[2025-03-19] MEDS ORDERED: FERROUS SULFATE 325mg EC TAB PO SCH (22:00)
[2025-03-19] MEDS ORDERED: PATIENTS OWN MEDICATION (Ferrous Sulfate (Iron) 325 MG) PO SCH (22:00)
[2025-03-19] MEDS: PANTOPRAZOLE 40 MG/10 ML VIAL INJ IV SCH (22:25)
[2025-03-19] MEDS: ALBUMIN 5% 250 ML IV ONE (22:25)
[2025-03-19] MEDS: ATORVASTATIN 20 MG TAB PO SCH (22:26)
[2025-03-20] VITALS (10 sets, daily range): BP systolic 53–135; BP diastolic 26–72; PULSE 43–170; RESP 20–120; TEMP 100.2; O2SAT 80–100
[2025-03-20 00:41] LABS: Base Excess -0.4 mmol/L (-2.0-3.0)
[2025-03-20] MEDS ORDERED: SODIUM CHLORIDE 0.9% 500 ML IV ONE (01:15)
[2025-03-20 01:35] LABS: Chloride 98 mmol/L (98-107); Sodium 143 mmol/L (136-145)
[2025-03-20 01:36] LABS: Anion Gap 17 (5-15); Calcium 10.2 mg/dL (8.7-10.4); Carbon Dioxide 28 mmol/L (20-31)
[2025-03-20 01:41] LABS: BUN/Creatinine Ratio 8.2 (10.0-20.0); Glucose 77 mg/dL (74-106); Magnesium 2.3 mg/dL (1.6-2.6)
[2025-03-20 01:45] LABS: Blood Urea Nitrogen 37 mg/dL (9-23)
[2025-03-20 01:51] LABS: Potassium 6.3 mmol/L (3.5-5.1)
--- NOTE | 2025-03-20 04:27 | RESUS ---
CODE BLUE ASSESSSMENT History of Events History of Events: Patient presented to ER for c/o SOB. Critical lab results included postassium level 8.6. Patient is chronic kidney disease and on dialysis. Per bedside RN patient suddeny became unresponsive with agonal respirations. Pt coded multiple timesyesterday. Tonight became bradycardic and lost pulses. Initial Information Date: Mar 20, 2025 Time: : Location of Arrest: ICU ([facility]) Arrest Witnessed: Yes CPR started initial time: : CPR started by whom: Hospital Staff Pre-Hospital Care: ACLS Type of arrest: Cardiac, Respiratory, Adult, Witnessed Spontaneous Respirations: No Pulse Present: No Monitoring: ECG, Pulse Oximetry, Apnea, Telemetry Airway Ventilation Comments: pt intubated prior day. Circulation Circulation : Time: Pulse Rate (adult): 0 Blood Pressure Systolic: 0 Blood Pressure Diastolic: 0 Temperature (Fahrenheit): 97.8 Procedure - IV Procedure - IV : Comment PREVIOUSLY PLACED Medications & Response Medications and Responses #1: Medication Time: 01:25 ADULT Medications Given ADULT: Epinephrine 1 mg Route of Administration: IV Heart Rate: 0 EKG Rhythm: PEA Blood Pressure Systolic: 0 Blood Pressure Diastolic: 0 Respiratory Rate: 0 O2 Sat by Pulse Oximetry: 0 EKG Rhythm: PEA Comment NO PULSE 0128 Medications and Responses #2: Medication Time: 01:28 ADULT Medications Given ADULT: Epinephrine 1 mg, Sodium Bacarbinate 50 meq Route of Administration: IV Heart Rate: 0 EKG Rhythm: PEA Blood Pressure Systolic: 0 Blood Pressure Diastolic: 0 Respiratory Rate: 0 O2 Sat by Pulse Oximetry: 0 EKG Rhythm: PEA Comment 0130 ROSC WIDE COMPLEX, LOST PULSES 0131 Medications and Responses #3: Medication Time: 01:31 ADULT Medications Given ADULT: Epinephrine 1 mg, Sodium Bacarbinate 50 meq Route of Administration: IV Heart Rate: 0 EKG Rhythm: V-Fibrillation Blood Pressure Systolic: 0 Blood Pressure Diastolic: 0 Respiratory Rate: 0 O2 Sat by Pulse Oximetry: 0 Defib. Joules: 120 EKG Rhythm: PEA Comment 0134 NO PULSE Medications and Responses #4: Medication Time: 01:34 ADULT Medications Given ADULT: Epinephrine 1 mg Route of Administration: IV Heart Rate: 0 Blood Pressure Systolic: 0 Blood Pressure Diastolic: 0 Respiratory Rate: 0 O2 Sat by Pulse Oximetry: 0 Comment ROSC 0136, 0147 BRADYCARDIC WITH A PULSE, PT GIVEN ATROPINE 1MG, 0152, NO PULSE Medications and Responses #5: Medication Time: 01:52 ADULT Medications Given ADULT: Epinephrine 1 mg, Sodium Bacarbinate 50 meq, Calcium Chloride 10 mL Route of Administration: IV Heart Rate: 0 Blood Pressure Systolic: 0 Blood Pressure Diastolic: 0 Respiratory Rate: 0 O2 Sat by Pulse Oximetry: 0 EKG Rhythm: PEA Comment NO PULSE AT 0155, PT PRONOUNCED. Pacing Pacer Pads Applied and Pacing: Yes Pulse Present with Pacing: No Procedure - Palumbo Catheter Comment: PREVIOUSLY PLACED Nurses Notes Cameron Coma Scale Eye Opening: None (1) Yelitza Coma Scale Verbal: None (1) Yelitza Coma Scale Motor: None (1) Glascow Total: 3 Pupil Reaction: Sluggish Bedside Blood Glucose: 62 EKG Rhythm: PEA Time Code Ended Time Code Ended: 01:55 Post Arrest Status: Outcome of code: Unsuccessful Patient pronounced by: XIOMARA Time patient pronounced: 01:55 Family notified: Yes Attending called: Yes Code Team Present: XIOMARA FERRERA, CHELSEY RN HS, TR FLUE DUST LABORER, YUN RN, ANTON RN, JOCELYN RN, BHAVANI CCT, NATHALIA RT Post Resuscitation Neurologica Pupil Size: 4 Comment: FIXED CHELSEY TOWNSEND Mar 20, 2025 04:27
[2025-03-20] MEDS ORDERED: SEVELAMER 800 MG TAB PO SCH (08:00)
[2025-03-20] MEDS ORDERED: ENOXAPARIN SOD 30 MG/0.3 ML SYRINGE SC SCH (10:00)
[2025-03-20] MEDS ORDERED: ASPirin-EC 81 mg tab PO SCH (10:00)
[2025-03-20] MEDS ORDERED: CEFEPIME 0.5 GM in D5W 5% 50 ML IV SCH (10:00)
[2025-03-20] MEDS ORDERED: ATROPINE SULF 1 MG/10ml SYR IV ONE (10:56)
--- NOTE | 2025-03-21 07:33 | ECG ---
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
== END 2025-03-20 05:32 | DRG 133 ==
LOC: EDBD 08:15 → ER 08:15 → OVERFLOW 15:16 → ICU WEST 17:53
PROVIDERS: ADMIT Student in an Organized Health Care Education/Training Program; ATTEND Student in an Organized Health Care Education/Training Program
PROC: 06HY33Z Insertion of Infusion Device into Lower Vein, Percutaneous Approach (ICD-10-PCS; principal; 2025-03-19)
PROC: 5A1935Z Respiratory Ventilation, Less than 24 Consecutive Hours (ICD-10-PCS; 2025-03-19)
PROC: 0BH18EZ Insertion of Endotracheal Airway into Trachea, Via Natural or Artificial Opening Endoscopic (ICD-10-PCS; 2025-03-19)
PROC: 5A12012 Performance of Cardiac Output, Single, Manual (ICD-10-PCS; 2025-03-19)
PROC: 5A1D70Z Performance of Urinary Filtration, Intermittent, Less than 6 Hours Per Day (ICD-10-PCS; 2025-03-19)
PROC: 5A2204Z Restoration of Cardiac Rhythm, Single (ICD-10-PCS; 2025-03-19)
PROC: 5A12012 Performance of Cardiac Output, Single, Manual (ICD-10-PCS; 2025-03-20)
DX: J96.00 Acute respiratory failure, unspecified whether with hypoxia or hypercapnia (principal); I46.9 Cardiac arrest, cause unspecified; I13.2 Hypertensive heart and chronic kidney disease with heart failure and with stage 5 chronic kidney disease, or end stage renal disease; I95.9 Hypotension, unspecified; N18.6 End stage renal disease; E11.22 Type 2 diabetes mellitus with diabetic chronic kidney disease; E11.51 Type 2 diabetes mellitus with diabetic peripheral angiopathy without gangrene; J44.9 Chronic obstructive pulmonary disease, unspecified; E87.5 Hyperkalemia; I50.9 Heart failure, unspecified; Z99.2 Dependence on renal dialysis; R00.1 Bradycardia, unspecified; I25.10 Atherosclerotic heart disease of native coronary artery without angina pectoris; Z95.1 Presence of aortocoronary bypass graft; Z89.512 Acquired absence of left leg below knee; Z89.511 Acquired absence of right leg below knee; Z83.3 Family history of diabetes mellitus; Z82.49 Family history of ischemic heart disease and other diseases of the circulatory system
CPT/HCPCS: 31500; 36415; 36556; 36600; 71045; 80048; 80053; 80074; 81001; 82805; 82962; 83605; 83735; 84132; 85025; 85610; 85730; 87040; 87070; 87081; 87205; 90935; 92950; 93005; 94002; 94640; 96365; 96375; 99291; 99292; G0378; J0171; J1642; J1815; J2470; J2704; J7060